=== PATIENT | male | born 1945 | race Caucasian/White ===

== ENCOUNTER → 2019-04-09 14:08 | Outpatient (BNVA) | payer MEDICARE, BC, SELFPAY | PROVIDERS: PCP Physician Assistant Medical; Referring Provider Physician Assistant Medical; Visit Provider Student in an Organized Health Care Education/Training Program | DX: M25.562 Pain in left knee (principal); M17.12 Unilateral primary osteoarthritis, left knee | CPT/HCPCS: 20610; 99203; J1040 ==

== ENCOUNTER → 2019-05-11 10:41 | Outpatient (BNVA) | payer MEDICARE, BC, SELFPAY | PROVIDERS: PCP Physician Assistant Medical; Referring Provider Physician Assistant Medical; Visit Provider Student in an Organized Health Care Education/Training Program | DX: M17.12 Unilateral primary osteoarthritis, left knee (principal) | CPT/HCPCS: 20610; 99213; J7318 ==

== ENCOUNTER 2019-08-16 11:20 | Outpatient (CLI) | payer MEDICARE, BC, SELFPAY ==
--- NOTE | 2019-08-16 11:00 | DI.RAD_ITS ---
EXAM: XR HIP RT COMPLETE AP PELVIS INDICATION: hip pain. COMPARISON: No exams were available for comparison TECHNIQUE: 2D digital imaging was performed. FINDINGS: There is moderate to severe narrowing of the right superior hip joint space. There is some acetabula r spurring and mild spurring at the superior femoral head. Subchondral cysts are seen in the superio r right acetabulum. The left hip joint space is well maintained. There is mild periarticular spurri ng on the left. IMPRESSION: Advanced degenerative changes of the right hip. Mild degenerative changes of the left hip. DATA REPOSITORY: RADIATION DOSE DELIVERED:
== END 2019-08-16 11:40 ==
PROVIDERS: PCP Physician Assistant Medical; Referring Provider Physician Assistant Medical; Visit Provider Student in an Organized Health Care Education/Training Program
DX: M25.551 Pain in right hip (principal); M16.0 Bilateral primary osteoarthritis of hip; M17.11 Unilateral primary osteoarthritis, right knee; M17.12 Unilateral primary osteoarthritis, left knee; M16.11 Unilateral primary osteoarthritis, right hip; J44.9 Chronic obstructive pulmonary disease, unspecified
CPT/HCPCS: 20610; 99214; J7318; 73502

== ENCOUNTER 2019-08-23 00:54 | Outpatient (CLI) | payer MEDICARE, BC, SELFPAY ==
--- NOTE | 2019-08-23 07:45 | DI.RAD_ITS ---
EXAM: RF JOINT INJECTION FLUORO GUID CLINICAL HISTORY: R HIP INJ UNDER FLUORO,RT HIP PAIN, M25.551 TECHNIQUE: COMPARISON: No exams were available for comparison FINDINGS: Fluoroscopy was utilized by Dr. Bey during right hip injection. Please see Dr. Bey is note . Hard copy shows intra-articular injection. Fluoro time was 6 seconds. IMPRESSION:
--- NOTE | 2019-08-23 14:02 | W.PROCNOTE ---
Date of service: 08/23/19 Time of Service: 14:02 Procedure Note Date of procedure: 08/23/19 Procedure: Right Hip Injection with Fluoroscopic Guidance Surgeon/Proceduralist/Physician: Jake Bey Procedure Diagnosis: Right Hip Osteoarthritis Procedure Indications: Riccardo has had persistent pain of the RIGHT hip and groin. Noninvasive measures have been tried. To serve as both diagnostic and therapeutic, an injection under fluoroscopy was recommended. I had discussed the risks of the procedure and the patient elected to proceed. Procedure Description: Riccardo was greeted in the flouroscopy room. The correct side was identified and the consent was reviewed with the patient and signed. The patient was then placed in the supine position on the fluoroscopy table. The RIGHT hip was then prepped with Chloraprep. The anterolateral injection starting point was identiifed by bony landmarks and fluoroscopy. The skin and soft tissue in the tract of the injection was anesthetized with 1% Lidocaine. A spinal needle was then inserted deep into the hip joint at the level of the lateral femoral neck under fluoroscopic guidance. A small amount of Omnipaque solution was injected to confirm intraarticular placement. Once confirmed, the hip was injected with 6cc of 0.5% Bupivicaine and 80mg of Depo-Medrol. A bandaid was placed on the injection site. The patient tolerated the procedure well and noted improvement in pre-injection pain.
[2019-08-23] MEDS: Omnipaque 300 MG/ML 10 ML BTL IJ (14:56)
[2019-08-23] MEDS: Bupivacaine 0.5% Pres-Free 10 ML VIAL 6 ML IJ (14:56)
[2019-08-23] MEDS: methylPREDNISolone ACETATE 80 MG/ML VIAL IM (14:56)
== END 2019-08-23 01:14 ==
PROVIDERS: PCP Physician Assistant Medical; Visit Provider Student in an Organized Health Care Education/Training Program
DX: M25.551 Pain in right hip (principal); M16.11 Unilateral primary osteoarthritis, right hip
CPT/HCPCS: 20610; 77002; J1040

== ENCOUNTER → 2019-10-15 10:54 | Outpatient (BNVA) | payer MEDICARE, BC, SELFPAY | PROVIDERS: PCP Physician Assistant Medical; Referring Provider Physician Assistant Medical; Visit Provider Student in an Organized Health Care Education/Training Program | DX: M16.11 Unilateral primary osteoarthritis, right hip (principal); Z98.890 Other specified postprocedural states; J44.9 Chronic obstructive pulmonary disease, unspecified | CPT/HCPCS: 99213 ==

== ENCOUNTER → 2019-11-01 11:02 | Outpatient (BNVA) | payer MEDICARE, BC, SELFPAY | PROVIDERS: PCP Physician Assistant Medical; Referring Provider Physician Assistant Medical; Visit Provider Student in an Organized Health Care Education/Training Program | DX: M17.12 Unilateral primary osteoarthritis, left knee (principal); M16.11 Unilateral primary osteoarthritis, right hip | CPT/HCPCS: 20610; 99213; J7318 ==

== ENCOUNTER 2020-01-23 02:12 | Outpatient (CLI) | payer MEDICARE, BC, SELFPAY ==
[2020-01-23 15:35] LABS: HCT 39.1 % (40.0-50.0); HGB 13.3 g/dL (13.5-17.5); MCH 31.8 pg (27.0-33.0); MCV 93.5 fL (80-95); MPV 11.3 fL (8.0-11.0); Platelet Count 216 10^3/uL (130-400); RBC 4.18 10^6/uL (4.36-5.78); RDW 13.3 % (11.8-14.1); RDW-SD 45.5 fL
[2020-01-23 16:34] LABS: Anion Gap 7.8 mmol/L (3-11); BUN 17 mg/dL (7-18); CO2 27.2 mmol/L (21.0-32.0); Calcium 9.1 mg/dL (8.5-10.1); Chloride 99 mmol/L (98-107); Glucose 99 mg/dL (74-106); Potassium 4.2 mmol/L (3.5-5.1); Sodium 134 mmol/L (136-145)
== END 2020-01-23 02:32 ==
PROVIDERS: PCP Physician Assistant Medical; Visit Provider Student in an Organized Health Care Education/Training Program
DX: M25.551 Pain in right hip (principal); M16.11 Unilateral primary osteoarthritis, right hip; Z01.818 Encounter for other preprocedural examination; Z01.812 Encounter for preprocedural laboratory examination
CPT/HCPCS: 80048; 85027; 86850; 86900; 86901

== ENCOUNTER 2020-01-23 15:55 | Outpatient (CLI) | payer MEDICARE, BC, SELFPAY ==
--- NOTE | 2020-01-23 14:45 | DI.RAD_ITS ---
EXAM: XR PELVIS AP CLINICAL HISTORY: pre op. TECHNIQUE: 2D digital imaging was performed. COMPARISON: CR XR HIP RT COMPLETE AP PELVIS from 08/16/2019 FINDINGS: BONES: No acute fracture is present. No bony destructive lesion is seen. JOINTS: No dislocation present. There is again seen moderate to severe narrowing of the right hip loreta nt space. Subchondral sclerosis and subchondral cysts are noted. The left hip joint is well maintai jennifer. The sacroiliac joints and symphysis pubis are unremarkable. SOFT TISSUE: Normal. IMPRESSION: Stable osteoarthritis of the right hip. DATA REPOSITORY: RADIATION DOSE DELIVERED:
== END 2020-01-23 16:15 ==
PROVIDERS: PCP Physician Assistant Medical; Visit Provider Physician Assistant
DX: M16.11 Unilateral primary osteoarthritis, right hip (principal); M25.551 Pain in right hip; Z01.818 Encounter for other preprocedural examination; Z01.812 Encounter for preprocedural laboratory examination
CPT/HCPCS: 80048; 85027; 86850; 86900; 86901; 72170

== ENCOUNTER 2020-01-25 08:20 | Outpatient (CLI) | payer MEDICARE, BC, SELFPAY ==
[2020-01-26 14:59] LABS: COVID-19 RT-PCR Result NEGATIVE (Negative)
== END 2020-01-25 08:40 ==
PROVIDERS: PCP Physician Assistant Medical; Visit Provider Student in an Organized Health Care Education/Training Program
DX: Z11.59 Encounter for screening for other viral diseases (principal); Z01.818 Encounter for other preprocedural examination; M16.11 Unilateral primary osteoarthritis, right hip
CPT/HCPCS: U0003

== ENCOUNTER 2020-01-29 06:12 | Observation (INO) | payer MEDICARE, BC, SELFPAY ==
[2020-01-29] VITALS (13 sets, daily range): BP systolic 76–135; BP diastolic 49–84; PULSE 55–69; RESP 12–19; TEMP 36.2–37.3; O2SAT 95–98
[2020-01-29] MEDS: Lactated Ringers 1,000 ML 80 ML IV ×2 (07:03→14:08)
[2020-01-29] MEDS: Acetaminophen 500 MG TAB 1000 MG PO ×3 (07:12→20:20)
[2020-01-29] MEDS: Celecoxib 200 MG CAP 400 MG PO (07:12)
[2020-01-29] MEDS: ceFAZolin 1 GM/50 ML BAG IVPB ×3 (07:46→22:01)
[2020-01-29] MEDS: Bupivacaine 0.25% Pres-Free 30 ML VIAL (08:14)
[2020-01-29] MEDS: Ketorolac 30 MG/ML VIAL (08:15)
--- NOTE | 2020-01-29 09:09 | DI.RAD_ITS ---
EXAM: XR HIP RT IN OR CLINICAL HISTORY: RIGHT HIP DJD. TECHNIQUE: 2D and realtime digital imaging was performed. COMPARISON: No exams were available for comparison FINDINGS: Fluoroscopy was provided in the OR for Dr. Bey. Hard copy images show placement of a right hip prosthesis. The components appear satisfactorily aligned. Please see procedure note for details. Fluoro time: 50.1 seconds RADIATION DOSE DELIVERED:
[2020-01-29] MEDS: Mirabegron 50 MG TABCR PO (11:31)
--- NOTE | 2020-01-29 11:35 | IN_ITS ---
Date of service: 01/29/20 Time of Service: 11:35 PT Notes Visit Reasons: R HIP TOTAL Physical Therapy Inpatient Initial Evaluation Date: 01/29/2020 Referring Doctor: Jake Bey MD PT Orders: PT CONSULT: Status post ortho surgery. Status post R KANWAL Precautions: Fall. Standard. WBAT on right LE. Patient Profile/Admitting Diagnosis: Riccardo is a 74-year-old male with primary unilateral osteoarthritis of the right hip and is status post right total hip arthroplasty on postoperative day 0. 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 Has steps at both house entrances. The front entrance has 4 step to enter without rails, the back has the same steps with rails. Inside the house, he has 18 more steps with rail on one side and a wall on the other side that he can hold onto for support. Independent with all aspects of ADLs prior to surgery. Equipment Owned/DME: Front wheeled walker Subjective: Agreeable to PT consult. Concerned about not being able to lift his right foot up. Denies dizziness, chest pain, and headache throughout session. Reports 2/10 pain in the right hip. Emphasizes that he is willing to stay overnight to make sure that the dosage for his pain pills are well figured out before he goes and he also would like to be as independent as he can as he does not want to be a burden to his significant other at home. Objective: General Observation: Supine in bed. Cold pack on right hip. Mepilex Ag over surgical incision. Bilateral TEDs on. IV in the right UE. Mental Status: Alert and oriented Pain: 2/10 in the right hip at rest and with movement ROM: Right Upper Extremity: Shoulder Flexion WFL. Shoulder abduction WFL. Elbow flexion WFL. Wrist flexion WFL. Opening and closing of hand WFL. Left Upper Extremity: Shoulder Flexion WFL. Shoulder abduction WFL. Elbow flexion WFL. Wrist flexion WFL. Opening and closing of hand WFL. Right Lower Extremity: Hip flexion WFL. Hip abduction WFL. Knee flexion WFL. Ankle dorsiflexion none. Ankle plantarflexion WFL. Left Lower Extremity: Hip flexion WFL. Hip abduction WFL. Knee flexion WFL. Ankle dorsiflexion WFL. Ankle plantarflexion WFL. Strength: Right Upper Extremity: Shoulder flexors 5/5. Shoulder abductors 5/5. Elbow flexors 5/5. Elbow extensors 5/5. Striping Machine Operator strong. Left Upper Extremity: Shoulder flexors 5/5. Shoulder abductors 5/5. Elbow flexors 5/5. Elbow extensors 5/5. Striping Machine Operator strong. Right Lower Extremity: Hip flexors 4-/5. Hip abductors 4-/5. Knee flexors 4-/5. Knee extensors 4-/5. Ankle dorsiflexors 0/5. Toe extensors 1/5. Ankle plantarflexors 3/5. Left Lower Extremity:Hip flexors 5/5. Hip abductors 5/5. Knee flexors 5/5. Knee extensors 5/5. Ankle dorsiflexors 5/5. Ankle plantarflexors 5/5. Sensation: Diminished as to pain and pressure on right leg and foot. Bed Mobility/Transfers: Supine to sit standby assist with HOB at 30 degrees Sit to stand CGA Stand to sit SBA Bed to chair SBA Chair to bed SBA Gait: 40 feet using front wheeled walker with WBAT on the right LE requiring contact-guard assist with foot drop on the right with no visible DF and absent heel strike. Decreased alex. Balance: Static Sitting: Normal Dynamic Sitting: Normal Static Standing: Fair Dynamic Standing: Fair Special Tests: Mobility Limitations Standardized Measure [facility] AM-PAC 6 clicks Basic Mobility Inpatient Short Form: Raw Score: 18 CMS Score: 47% deficit Informed Consent/Education: Patient instructed in purpose of PT consult and plan of care. Assessment: Riccardo demonstrates functional mobility decline requiring the use of front wheeled walker for all mobility ADL performance, impairment in gait pattern, difficulty with walking, and increased fall risk due to postoperative status. Riccardo is a 74-year-old male with primary unilateral osteoarthritis of the right hip and is status post right total hip arthroplasty on postoperative day 0. Patient presents with clinical signs and symptoms consistent with current/admitting diagnoses that have resulted to mobility limitations, gait instability, generalized weakness, and impairment of motor control as demonstrated by the following impairment level findings: 1. Decreased strength to right knee and ankle major muscle groups 2. Impaired standing balance 3. Impaired activity tolerance 4. Limitation of joint range of motion in right knee and ankle 5. Decreased sensation to right leg and foot Impairments are contributing to the following functional limitations: 1. Dependent bed mobility skills 2. Increased dependence with transfers 3. Inability to safely ambulate without assistive device and physical assistance 4. Increase completion time for mobility ADL performance 5. Increased fall risk 6. Inability to negotiate steps alone safely Patient is assessed as a 04660 complexity based on the following: History: 34-year-old male with impairment level findings, functional limitatio ns, and past medical history as indicated above Examination: Demonstrable impairment in strength, balance, and mobility level with underlying impairments and functional limitations as documented above Presentation: Evolving Decision Makin moderate complexity Goals: Goals X1 week 1. Supine-Sit independent 2. Sit-Supine independent 3. Sit-Stand independent 4. Stand-Sit independent 5. Bed-Chair independent 6. Chair-Bed independent 7. Independent gait on level surface with use of least restrictive device for at least 300 feet without report of pain nor dyspnea 8. Independent stair negotiation while holding onto bilateral rails for at least 10 steps without report of pain nor dyspnea 9. Independent with home exercise program 10. Good static and dynamic standing balance/tolerance Plan of Care/Treatment Plan: 1-2x/day, 7 days/week x 1 week. Plan of care has been reviewed with the LAUNDRY WASHER providing the service under Physical Therapy direction. Initiate Physical Therapy intervention for strengthening, bed mobility, transfers, gait, stairs, balance training, use of assistive device. DISCHARGE RECOMMENDATIONS: Home when medically cleared by Ortho surgeon. Out patient PT services to address underlying impairments and functional deficits to facilitate return to premorbid independent level. TREATMENT CODE/TIME: 9716 2 x 25 minutes, 9 seven 0 x 3 minutes beginning at 11:35 AM. Thank you for the opportunity to participate in the care of this patient. Carleen Mallory PT, DPT, CLT [facility] [place], [place]
[2020-01-29] MEDS: oxyCODONE 5 MG TAB PO ×2 (13:16→20:51)
--- NOTE | 2020-01-29 15:08 | ROE_ITS ---
Date of service: 01/29/20 Time of Service: 09:29 Operative Note Operative Note DATE OF PROCEDURE: 01/29/20 PRE-OP DIAGNOSIS: Right Hip Osteoarthritis POST-OP DIAGNOSIS: same PROCEDURE: Right Anterior Total Hip Arthroplasty SURGEON: Jake Bey GANG DRILL PRESS OPERATOR: Estuardo Smith ANESTHESIA: spinal ESTIMATED BLOOD LOSS: 400 PATHOLOGY: none sent COMPLICATIONS: None Patient was transported to: PACU Patient's condition: stable Implants: 1. Depuy [place] Acetabular Component, 56mm 2. Depuy Acetabular Liner, [id number] 3. Depuy Corail High Offset Collared Femoral Stem, Size 14 4. Depuy Altrx Ceramic Femoral Head, Size 36+1.5mm Indications: I have seen Riccardo in clinic for symptoms of hip arthritis, confirmed with radiographic findings. He has exhausted nonoperative methods and was having significant limitations in daily function and desired better function and less pain. I discussed the technical details of a hip replacement. I explained the risks of the procedure to include, but not limited to, bleeding, infection, pain, stiffness, fracture, damage to nerves and vessels, damage to muscles and tendons, loosening, instability, leg length inequality, need for repeat procedure, blood clot and cardiopulmonary demise. Despite these risks, Riccardo elected to proceed. Findings: There was significant signs of arthritis throughout the hip, mostly superiorly and witha large floor osteophyte. Procedure Description: Riccardo was greeted in the preoperative holding area where the correct side was identified and marked. The consent was reviewed with the patient and signed. The history and physical was updated. All questions were answered. He was taken back to the operating room. A spinal anesthestic was then administered. The patient was placed into the supine position on the operating room table. The patient was then positioned onto the ARCH table. Both feet were wrapped with Webrill cotton wrap along with Coban. The feet were placed in specialized boots for the ARCH table, well seated within the boot and secured. SCDs were applied. The patient was then slid down onto a peroneal post and the nonoperative leg was secured in a leg pitt attached to the table. The operative side was placed into the ARCH table attachment and bed height and positioning was secured. A preoperative AP pelvis was obtained to serve as a reference for determining leg lengths. Prophylactic antibiotics in the form of Cefazolin were administered. 1g of Tranxemic Acid was given intravenously within 30 minutes of incision. The right leg was then prepped with Chloraprep and draped in a standard fashion. A second prep with Chloraprep was performed prior to placement of a shower-curtain type drape with Iodine impregnated skin protection. A timeout to confirm correct identity, side and site, procedure, allergies, anesthesia, and medical concerns was performed. An obliquely oriented incision was made starting lateral to the ASIS and running distal over the Tensor Fascia Nely (TFL) muscle belly toward the fibular head, approximately 10cm. The skin and soft tissue was dissected sharply, through Eve?s fascia, and to the fascia of the TFL. With the fascia and superior border of the IT band identified, the fascia was incised with a new knife just above any perforators from the IT band. The TFL muscle belly was bluntly dissected away from the fascia and moved laterally. The fat between TFL and rectus was identified to ensure the dissection was not within the TFL. Blunt dissection created space between abductors and the capsule and retractor was placed over the lateral femoral neck. The fibers of the rectus femoris tendon were identified and these were freed from the anterior capsule. A second cobra retractor was placed around the medial femoral neck. The TFL was further retr acted laterally to show the deep fascia. Careful dissection through this layer identified three main crossing vessels of the lateral femoral circumflex. These were cauterized in multiple locations and then cut without any noticeable bleeding. The TFL was further released bluntly from the deep fascia to expose anterior hip capsule and fat The Say orthopaedic retractor was then placed beneath the TFL and against sartorius and medial soft tissues to protect and retract the soft tissues. A T-capsulotomy was then performed starting at the superior lateral acetabulum and moving distally to the intertrochanteric ridge. These capsular flaps were tagged with a No. 1 Ethibond and elevated from within. The capsular flaps were released to the shoulder of the lateral neck and to the lesser trochanter to give excellent visualization of the proximal femur. A neck osteotomy was performed using an oscillating saw based on preoperative templates. This cut started in the shoulder and of the lateral neck and exited medially. The saw was at all times directed medially to avoid injury to the greater trochanter. 6cm of traction was applied to the leg and the osteotomy opened. The femoral head was removed with a corkscrew, making sure to protect the TFL on its exit. This was measured on the back table to determing the starting reamer size. Portions of the rectus obscuring visualization were minimally elevated off the superior acetabulum. An anterior retractor was placed over the anterior wall between capsule and labrum and attached to the Gripper retraction system. A posterior retractor was placed similarly. This provided excellent visualization. The contents of the cotyloid fossa were removed with electrocautery and the labrum was removed with a knife. There was a notable floor osteophyte. There was significant chondromalacia of the superior acetabulum. Acetabular reaming began with a 52mm reamer. This first reaming was directed anterior to posterior and medial to get down to the true floor. This was inspected and reamed until the true floor was reached. The anterior retractor was then released and entry and exit was provided by traction on the capsular flaps. I then reamed sequentially up to a 56mm reamer where good fit was obtained. The larger reamers were oriented based on anatomical reference of the anterior and lateral birch to ensure proper abduction and anteversion. Positioning and size was confirmed with the fluoroscopy. A 56mm Depuy [place] acetabular component was selected. The acetabulum was reamed around the periphery with the selected acetabular size to prevent a rim fit. The deep tissues were irrigated. The acetabular component was then impacted in a position of about 40-45 degrees of abduction and 15-20 degrees of anteversion, using the patient?s anatomy as the ultimate landmark. Fluoroscopy was used to confirm this. There was excellent airborne operations superintendent of the acetabular component and the inserting handle was removed. The acetabular liner, Depuy [id number] polyethylene liner, was inserted and lined up with the tines of the acetabular component. There was no soft tissue interposition. The liner was then impacted into position and confirmed to be well-seated. A portion of the blanche-articular cocktail was then injected around the acetabulum into the capsule and periosteum. This cocktail consisted of 50cc of 0.25% Bupivicaine and 20cc of Exparel, expanded to a total of 120cc. Traction was released from the femur. The leg was rotated to 120 degrees. Any remaining medial capsule was released until the lesser trochanter was easily palpable. A Zhou retractor was placed medially. The lateral capsule was further released into the shoulder to allow access to the greater trochanter. A Zhou retractor was placed over the greater trochanter which allowed the trochanter to flip in front of the capsule for excellent exposure. The leg was brought down into maximal extension and 20 degrees of adduction while ensuring there was no impingement on the acetabulum. Any remnant capsule within the trochanter was released. Piriformis and obturator externis were identified and protected. There was excellent access to the proximal femur. The lateral neck remnant was removed with a rongeur. A blunt canal probe was used to identify the canal and trajectory for later broaching. A box osteotome initiated the broach course. A small curved rasp and a curved curette were used to work laterally. Broaching then began with a size 8 Corail broach. This was inserted manually around the trochanter and into the canal before mallet blows. The broach was seated to a few millimeters below the cut level based on the neck cut and the preoperative template. Sequential broaching was continued with the Blend pneumatic broaching device until a tight fit was obtained with good rotational control of the femur. A trial standard 125 degree neck was inserted along with a +5 trial head. The leg was brought out of extension and adduction and then reduced with traction and internal rotation. The leg was stable anteriorly in a position of 30 degrees of extension and 90 degrees of external rotation. Fluoroscopy was used to ensure there was no fracture and the stem was seated well. Leg lengths were checked with an AP pelvis and pelvic reference points. Help/Systems navigation system was used to confirm appropriate positioning and leg length and offset. There was some under offset and leg length, but corrected with a high offset stem and 1.5mm head. Once content with the desired offset and leg lengt hs, the leg was brought back into extension, external rotation and adduction. The periosteum and surrounding tissue was injected with remaining portion of the blanche-articular cocktail. The proximal femur was irrigated as well as the deep tissues. The Depuy Corail High Offset collared stem, size 14, was then manually inserted into the proximal femur making sure to control rotation. It was then malleted into position with light blows, giving breaks to allow bone expansion and decrease risk of fracture. The selected Depuy Altrx Ceramic Head, size 36+1.5mm, was then placed onto the clean and dry trunnion and secured with impaction onto the tapered fit. The leg was brought back out of extension and adduction and reduced with traction and internal rotation. Stability was confirmed with no shuck at 90 degrees of external rotation and 30 degrees of extension. No impingement through range of motion arc. Final x-ray images were obtained with fluoroscopy to confirm adequate positioning and no intraoperative fracture. The deep tissues were thoroughly irrigated with Irrisept chlorhexadine solution. The second dose of TXA 1g was administered intravenously.The capsule was then reapproximated with the previously placed Ethibond sutures. The TFL fascia was finally closed with a No. 2 Stratafix, barbed suture. Deep tissues were then reapproximated with 0 Vicryl and a running 2-0 Vicryl. The skin was closed with a running 4-0 Monocryl in a subcuticular fashion. This was reinforced with skin glue. A Mepilex silver dressing was applied. At the end of the case, all counts were correct. Riccardo was transferred to the hospital bed without difficulty and suffering no apparent complication. Riccardo has a good prognosis. Physical therapy will start today and without restrictions, weight-bearing as tolerated. Aspirin 81mg BID will be used for DVT prophylaxis.
--- NOTE | 2020-01-29 15:39 | PT.INTREAT ---
Date of service: 01/29/20 Time of Service: 14:05 PT Notes Visit Reasons: R HIP TOTAL Inpatient Physical Therapy Treatment Note [facility] Date: 01/29/2020 PRECAUTIONS: Fall, WBAT R SUBJECTIVE: Riccardo expresses concern regarding lack of active dorsiflexion at this time. Patient was observed discussing this matter with Dr. Bey. He states he feels discouraged, but is trying to remain hopeful that this is temporary. OBJECTIVE: PAIN: No complaints of pain BED MOBILITY/TRANSFERS Supine-sit: I with HOB flat Sit-supine: I with HOB flat Sit-stand: S Stand-sit: S Bed-Chair: SBA Chair-bed: SBA GAIT Assistive Device: FWW Weight bearing: WBAT R Assist: SBA Distance: 225' Deviation: Lack of dorsiflexion on R, step-through gait pattern instruction THEREX: Patient was instructed in several lower extremity strengthening and stabilization exercises, while in a supine position, as per flow sheet. Patient requires assist into dorsiflexion at this time. STAIRS: Up/down 3x4 and 2x6 using U rail/SPC and a step-to pattern with SBA; up/down 3x4 and 2x6 using SPC and a step-to patter with SBA ASSESSMENT: Patient tolerated session with complaints of increased fatigue with increased gait distance with FWW support and SBA. He demonstrates lack of dorsiflexion at the time, however, manages well with gait and stair training. Patient would benefit from continued gait training as well as global strengthening for improved mobility and activity tolerance. PLAN: Continue with gait training and global strengthening TREATMENT CODE/TIME: 40 minutes; 55252 x2, 05707
[2020-01-29] MEDS: Multivitamin w/Minerals TAB 1 TAB PO (20:19)
[2020-01-29] MEDS: Aspirin E.C. 81 MG TABEC PO (20:20)
[2020-01-29] MEDS: Celecoxib 200 MG CAP PO (20:20)
[2020-01-29] MEDS: Melatonin 3 MG TAB PO (22:01)
[2020-01-30] MEDS: Lactated Ringers 1,000 ML 80 ML IV (00:57)
[2020-01-30] MEDS: oxyCODONE 5 MG TAB PO ×3 (00:57→15:52)
[2020-01-30 03:05] VITALS: BP 100/58; PULSE 58; RESP 17; TEMP 37.7; O2SAT 95
[2020-01-30] MEDS: ceFAZolin 1 GM/50 ML BAG IVPB (06:15)
[2020-01-30 08:17] VITALS: BP 115/66; PULSE 69; RESP 18; TEMP 36.6; O2SAT 97
[2020-01-30] MEDS: Multivitamin w/Minerals TAB 1 TAB PO (08:35)
[2020-01-30] MEDS: Mirabegron 50 MG TABCR PO (08:35)
[2020-01-30] MEDS: Dexamethasone 4 MG TAB PO (08:36)
[2020-01-30] MEDS: Magnesium Oxide 400 MG TAB PO (08:36)
[2020-01-30] MEDS: Celecoxib 200 MG CAP PO (08:37)
[2020-01-30] MEDS: Aspirin E.C. 81 MG TABEC PO (08:37)
[2020-01-30] MEDS: Acetaminophen 500 MG TAB 1000 MG PO ×2 (08:37→14:30)
[2020-01-30] MEDS: Pantoprazole 40 MG TABCR PO (08:37)
--- NOTE | 2020-01-30 08:59 | PT.INTREAT ---
Date of service: 01/30/20 Time of Service: 08:59 PT Notes Visit Reasons: R HIP TOTAL Inpatient Physical Therapy Treatment Note [facility] Date: 01/30/2020 PRECAUTIONS: Fall. Standard. WBAT R LE. SUBJECTIVE: Riccardo feels more confident about moving around with his FWW. He is hopeful that his R foot can improve down the road. Complained of 4/10 pain in R hip with mobility performance. Denies dizziness, lightheadedness, and chest pain through out session. Is happy about how well he did on the real steps this morning. OBJECTIVE: PAIN: 4/10 pain in R hip BED MOBILITY/TRANSFERS Supine-sit: independent with HOB flat Sit-supine: independent with HOB flat Sit-stand: independent Stand-sit: independent Bed-Chair: supervision Chair-bed: supervision THERA EX to R Foot: Manual resistance to plantarflexion to R LE with 5-second hold x 10 with goal of irradiation to dorsiflexors. Active inversion to about 10 degrees x 10. Active IP flexion x 10. GAIT Assistive Device: FWW Weight bearing: WBAT R Assist: SBA Distance: 300' Deviation: Step through gait pattern. Lack of complete knee extension at midstance on the R LE. Plantarflexion less pronounced during swing phase of gait with compnesatory increased R knee flexion. Much more controlled foot flat seen today. STAIRS: Up and down 12 x 4 steps using SPC on one hand and while holding onto rail with the other with step-to gait pattern and SBA of PT and CLINICAL STUDIES SPECIALIST [place]. R foot almost to neutral during each descent. ASSESSMENT: Riccardo demonstrates increased independence with mobility performance and will manage well at home with good pain control and use of front-wheeled walker. PLAN: Home when medically cleared by orthopedic surgeon. May benefit from OP services to regain highest functional level. TREATMENT CODE/TIME: 90549 x 47 minutes beginning at 8:59 AM.
--- NOTE | 2020-01-30 10:52 | PDOC.CMIN ---
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 His significant other, Jennifer will be supporting him during recovery. CURRENT FUNCTIONAL STATUS:: Riccardo is lying in bed when CM meets with him. He verbalizes understanding of his discharge plan and shares no concerns at this time. Per chart review: Riccardo expresses concern regarding lack of active dorsiflexion at this time. Patient was observed discussing this matter with Dr. Bey. He states he feels discouraged, but is trying to remain hopeful that this is temporary. ADVANCE DIRECTIVES:: None on file. Has patient been provided with info about the portal/API?: No Did the patient sign up for the portal?: No CODE STATUS:: Full Code INSURANCE COVERAGE / FINANCIAL ISSUES:: BC/BS. Medicare CURRENT HOME/COMMUNITY SERVICES/EQUIPMENT:: No current services. PRIMARY CARE PHYSICIAN:: Destiny Lucas POTENTIAL DISCHARGE NEEDS:: PT evaluation to inform discharge planning considerations. Possible FWW, follow up appointments with surgical services and PCP. PATIENT/FAMILY EDUCATION NEEDS:: Review discharge instructions, discuss Ask Me Three. ANTICIPATED BARRIERS TO DISCHARGE:: None identified at this time. TRANSPORTATION:: Via private vehicle with his daughter. PLAN:: Riccardo will return home when ready per MD. He will have new orders for [facility] through [facility]: CM faxed referral and orders. Riccardo will follow up with surgical services, his PCP and plan of care as prescribed. He will transport via private vehicle with his daughter.
--- NOTE | 2020-01-30 11:04 | DSE_ITS ---
Date of service: 01/30/20 Time of Service: 11:04 DS: Diagnosis Discharge Diagnosis (1) Primary osteoarthritis of right hip: Status: Chronic (2) Right peroneal nerve palsy: Status: Acute Discharge Plan Disposition Patient Disposition: HOME Condition: Stable Discharge Details Reason For Visit: R HIP TOTAL Admit Date/Time: 01/29/20 06:12 Admit Provider: Jake Bey Attending Provider: Jake Bye Primary Care Provider: Destiny Lucas Hospital Course Hospital Course: Riccardo was admitted to the medical/surgical floor following the procedure. The surgery was tolerated well without any notable medical,or anesthetic complications. Unfortunately, after the spinal anesthetic wore off Riccardo had no active dorsiflexion of his right foot. This was followed and tested and demonstrated what appeared to be a peroneal nerve distribution palsy. I spent some time to Bereketr ongoing potential ideology. I also reviewed the literature with him which is quite sparse with this type of injury in an anterior approach. I also discussed the anatomy and the unlikelihood that this injury happened. Nevertheless, it did. As planned, mobilization began postoperatively. He was voiding spontaneously. Vitals were stable. Physical therapy worked with the patient and was cleared for discharge home. Pain was controlled on oral regimen. I discussed the treatment algorithm to follow these nerve symptoms over the next few weeks and plan for nerve action studies and EMG if he has no resolution at the 6-week point. All his questions were answered. I discussed this in detail with him and his partner, Jennifer. We will avoid any bracing at this time and continue to work on active and active assisted range of motion. I will also order home health physical therapy. Home Meds and New Rx's Prescriptions: New aspirin 81 mg tablet,delayed release (DR/EC) 81 mg PO BID Qty: 60 RF: 0 acetaminophen [Tylenol Extra Strength] 500 mg tablet 500 mg PO Q6H PRNQty: 90 RF: 0 pantoprazole [Protonix] 40 mg tablet,delayed release (DR/EC) 40 mg PO DAILY Qty: 30 RF: 0 oxycodone 5 mg tablet 5 mg PO Q4H PRNQty: 18 RF: 0 celecoxib [Celebrex] 200 mg capsule 200 mg PO BID Qty: 60 RF: 0 cyclobenzaprine 5 mg tablet 5 mg PO QHS PRNQty: 7 RF: 0 Continued Myrbetriq 50 mg tablet extended release 24 hr 50 mg PO DAILY RF: 0 Anoro Ellipta 62.5-25 mcg/actuation blister with device 1 inh IH DAILY RF: 0 lorazepam 0.5 mg tablet 0.5 mg PO QHS PRNRF: 0 Trelegy Ellipta 100-62.5-25 mcg blister with device 1 inh IH DAILY RF: 0 Ventavis 10 mcg/mL solution for nebulization 5 mcg IH PRN PRNRF: 0 (DME) Raised Toilet Seat See Rx Instructions .ROUTE .MEDSUPPLY Qty: 1 RF: 0 Discharge Instructions Additional Instructions: Total Hip Discharge Instructions Activity: The most important activity is to walk. You should try to take short walks a few times a day. You have no restrictions on movement or positioning, but do not try to force what you do. You will find some stiffness and weakness with hip flexion (lifting your knee). Do not try to strengthen this too early, continue to practice walking and stairs and this will come. - Outpatient physical therapy can be helpful to help return you to a normal gait and improve your flexibility and strength. This can start around 2 weeks. For some patients, it?s not necessary. Usually this is determined at the time of discharge or at the first post-operative visit. - You should wear the MARJORIE hose on both legs for 2 weeks. Dressing: Keep the surgical dressing in place for at least one week. After the first week it may be removed and replace with light gauze and tape or nothing. It may get wet after 3 days but avoid soaking the dressing. If it gets wet, just lightly pat dry. It is important to always keep some gauze between skin folds, especially when you are sitting. Spend some time with the wound exposed when you are lying flat as the incision does wrinkle onto itself. Medications: - You should take Tylenol and an anti-inflammatory Celebrex as your primary pain control medications - You have been prescribed a stronger pain medication Oxycodone for breakthrough pain, take as needed as prescribed. - You have also been prescribed a stomach acid reduction agent Pantoprozole to help reduce stomach acid and reflux. - You will be taking Aspirin 81mg twice a day for DVT prevention unless instructed otherwise. - You also have been prescribed Cyclobenzaprine 5mg at night to help with muscle spasms/cramps. - If you have constipation you should take Colace or Miralax (both [id number]). It takes most people 3-4 days to have a bowel movement. Follow-up: 2 weeks 1. Encounter Date and Reason I certify that RICCARDO TREVINO was seen by Jake Bey MD on 01/30/20 and that I had a [id number] encounter with this patient that meets the physician face to face encounter requirements. 2. Clinical Findings Supporting Skilled Need and Homebound Status I certify that home health services are medically necessary, include either intermittent custodial and/or physical/speech therapy, and that this patient is homebound in that absences from the home require considerable and taxing effort and are infrequent or of short duration, or are attributable to the need to receive medical care. [X] (a) Attached documentation from encounter provides clinical findings suppor ting skilled need and homebound status (including what assistance patient requires to leave the home). The encounter with the patient was in whole, or in part, for the following medical condition, which is the primary reason for home health care: R HIP TOTAL with PERONEAL NERVE PALSY Half-Way: Physical Therapy: Riccardo would benefit from home health services for PT due to weakness and ambulatory dysfunction following a right hip replacement complicated by a peroneal nerve palsy. He had an anterior KANWAL and there are no restrictions with hip positioning or movement. WBAT with assistive devices. Gentle PROM and AAROM of the lower extremity. Speech Therapy: Homebound: Riccardo is unable to leave his home unassisted. He has an ambulatory dysfunction due to recent surgery and nerve injury. 3. Certification and Authentication I certify that I composed the above information based on my clinical judgement relating to this patient's medical condition and, if applicable, clinical findings communicated to me by the NPP or inpatient physician who performed the Home Health Referral. All further orders will be obtained through Dr. Jake Bey Stand Alone Forms: Nursing Discharge Form Referrals: Jake Bey MD [ [facility] STAFF PHYSICIAN] - 02/15/20 9:00 am Activity:: Activity as Tolerated Equipment/Supplies:: Walker Diet:: As Tolerated Discharge Orders Discharge Orders: Discharge Order (Routine); Ordered 01/30/20 Ordered By: Jake Bey DS: Summary Status at Discharge Functional status at discharge: uses cane/walker Overall status at discharge: patient is not back to baseline Mental Status: mental status grossly normal Speech and Movement: speech and movement normal Mood: congruent mood Affect: normal affect Exam Psych Mental Status: mental status grossly normal Speech and Movement: speech and movement normal Mood: congruent mood Affect: normal affect DS: Data Vitals/I&O Vitals and I&O: Vital Signs Temperature 36.6 C 01/30/20 08:17 Temperature Source Tympanic 01/30/20 08:17 Pulse 69 01/30/20 08:17 Pulse Rhythm Regular 01/30/20 08:30 Respiratory Rate 18 01/30/20 08:17 Respiratory Effort Non-Labored 01/30/20 08:30 Respiratory Depth Normal 01/30/20 08:30 Respiratory Pattern Normal 01/30/20 08:30 Blood Pressure 115/66 01/30/20 08:17 Pulse Oximetry 97 01/30/20 08:17 Respiratory End-tidal CO2 31 01/29/20 10:17 Oxygen Delivery Method Room Air 01/30/20 08:17 Oxygen Flow Rate 0 01/30/20 08:17 Pain Level 6 01/30/20 08:41 Intake & Output 01/29/20 01/29/20 01/30/20 11:59 23:59 11:59 Intake Total 1070.000 / 2434.000 1364 / 2434.000 1881.333 / 1881.333 Output Total 350 / 350 400 / 400 Balance 720.000 / 2084.000 1364 / 2084.000 1481.333 / 1481.333 Weight 84.7 kg Intake: IV 720.000 / 1124.000 404 / 5353.058 1668.333 / 1401.333 Oral 350 / 1310 960 / 1310 480 / 480 Output: Urine 400 / 400 Estimated Blood Loss 350 / 350 Other: Urine Color Yellow Yellow Urine Appearance Clear Clear Cloudy Urine Odor Normal None Comment Pt voided in the toliet. Emesis Description None Voiding Methods Toilet Toilet Data Completed and Pending Labs on day of discharge: Labs from last 24 hours 01/29/20 22:10 Magnesium 2.0 PFSH Medical History Arthritis of back Asthma Cerebral infarction due to embolism (~01/2014) Did not require intervention COPD (chronic obstructive pulmonary disease) Degenerative lumbar spinal stenosis History of cardioversion Hx Afib s/p heart valve surgery which required cardioversion. Osteoarthritis of right knee Durolane injection: 08/16/2019 Surgical History History of colonoscopy Status post heart valve replacement (01/10/14) History of aortic stenosis Ascending aorta aneurysm Social History Smoking/Tobacco Use Status: Former Tobacco Use Quit Date: 04/11/07 Pack-years: 44 Alcohol Intake: current Alcohol Intake frequency: a few times a month Alcohol type: wine Drug use: Socially Current gender identity: male
[2020-01-30 11:09] VITALS: BP 111/65; PULSE 53; RESP 17; TEMP 36.3; O2SAT 96
--- NOTE | 2020-01-30 13:35 | PT.INTREAT ---
Date of service: 01/30/20 Time of Service: 13:00 PT Notes Visit Reasons: R HIP TOTAL 01/30/2020 Patient education provided for patient and patient's spouse. KANWAL packet issued and reviewed. HEP reviewed and safety precautions discussed. Patient and spouse demonstrate good understanding of information presented to them. Total Treatment Time: 20 minutes; 13945
--- NOTE | 2020-01-30 14:48 | DI.RAD_ITS ---
EXAM: XR HIP RT AP LAT ONLY INDICATION: Eval R KANWAL, peroneal palsy. COMPARISON: CR XR HIP RT COMPLETE AP PELVIS from 08/16/2019 XR HIP RT IN OR from 01/29/2020 TECHNIQUE: 2D digital imaging was performed. FINDINGS: A right hip prosthesis is noted, unchanged in alignment from intraoperative images. Components appea r well aligned. There is a mild amount of residual postsurgical air in the soft tissues. DATA REPOSITORY: RADIATION DOSE DELIVERED:
== END 2020-01-30 16:38 | disposition home or self-care (01) ==
LOC: PDS 07:43 → MS 09:46 → PDS 11:49 → MS 11:49
PROVIDERS: Admitting Provider Student in an Organized Health Care Education/Training Program; PCP Physician Assistant Medical; Visit Provider Student in an Organized Health Care Education/Training Program
PROC: (CPT 27130; principal; 2020-01-29 07:30)
DX: M16.11 Unilateral primary osteoarthritis, right hip (principal); I48.91 Unspecified atrial fibrillation; J44.9 Chronic obstructive pulmonary disease, unspecified; M48.061 Spinal stenosis, lumbar region without neurogenic claudication; G97.82 Other postprocedural complications and disorders of nervous system; Y83.4 Other reconstructive surgery as the cause of abnormal reaction of the patient, or of later complication, without mention of misadventure at the time of the procedure; Y92.234 Operating room of hospital as the place of occurrence of the external cause
CPT/HCPCS: 27130; 97110; 97162; 97530; NC; 73501; 73502; 83735; G0378; J0690; J1100; J1885; J2405; J8540

== ENCOUNTER 2020-02-15 09:41 | Outpatient (CLI) | payer MEDICARE, BC, SELFPAY ==
--- NOTE | 2020-02-15 09:00 | DI.RAD_ITS ---
EXAM: XR HIP RT COMPLETE AP PELVIS CLINICAL HISTORY: 1st post op R KANWAL. TECHNIQUE: 2D digital imaging was performed. COMPARISON: CR XR HIP RT COMPLETE AP PELVIS from 08/16/2019 CR XR HIP RT AP LAT ONLY from 01/30/2020 FINDINGS: BONES: There are stable post operative changes present. No fracture or dislocation. JOINTS: The joint spaces are well maintained. No joint effusion is present. SOFT TISSUE: Normal. IMPRESSION: Stable postoperative changes. DATA REPOSITORY: RADIATION DOSE DELIVERED:
== END 2020-02-15 10:01 ==
PROVIDERS: PCP Physician Assistant Medical; Referring Provider Physician Assistant Medical; Visit Provider Student in an Organized Health Care Education/Training Program
DX: Z96.641 Presence of right artificial hip joint (principal); Z47.1 Aftercare following joint replacement surgery; G57.31 Lesion of lateral popliteal nerve, right lower limb; J44.9 Chronic obstructive pulmonary disease, unspecified
CPT/HCPCS: 73502

== ENCOUNTER 2020-02-21 14:30 | Outpatient (CLI) | payer MEDICARE, BC, SELFPAY | END 2020-02-21 14:50 | PROVIDERS: PCP Physician Assistant Medical; Visit Provider Student in an Organized Health Care Education/Training Program | DX: M17.11 Unilateral primary osteoarthritis, right knee (principal) | CPT/HCPCS: 20610; J7318 ==

== ENCOUNTER → 2020-03-18 08:21 | Outpatient (BNVA) | payer MEDICARE, BC, SELFPAY | PROVIDERS: PCP Physician Assistant Medical; Referring Provider Student in an Organized Health Care Education/Training Program; Visit Provider Psychiatry & Neurology Neurology | DX: G57.31 Lesion of lateral popliteal nerve, right lower limb (principal); M21.371 Foot drop, right foot; G62.9 Polyneuropathy, unspecified | CPT/HCPCS: 95885; 95909; 99204; 99215 ==

== ENCOUNTER 2020-03-24 02:15 | Outpatient (CLI) | payer MEDICARE, BC, SELFPAY ==
[2020-03-24 10:16] LABS: Hemoglobin A1C 5.1 % (<5.7)
[2020-03-24 11:39] LABS: TSH (W/Ref FT4) 1.66 uIU/mL (0.36-3.74)
[2020-03-24 11:40] LABS: Vitamin B12 > 2000 pg/mL (193-986)
[2020-03-25 14:33] LABS: Total Protein 6.5 g/dL (6.3-8.2)
== END 2020-03-24 02:35 ==
PROVIDERS: PCP Physician Assistant Medical; Visit Provider Psychiatry & Neurology Neurology
DX: G62.9 Polyneuropathy, unspecified (principal); R53.83 Other fatigue; R73.9 Hyperglycemia, unspecified
CPT/HCPCS: 36415; 99213; 82607; 83036; 84165; 84443

== ENCOUNTER 2020-04-01 00:26 | Outpatient (CLI) | payer MEDICARE, BC, SELFPAY ==
--- OUTSIDE RECORDS SUMMARY | 2020-04-01 00:28 | XMS_ITS | Encounter Summary ---
:1945 Author Care Team Providers Name Role Phone Destinybelkis Lucas Primary Care Provider [phone] Aj Orlando MD Red Hat Engineer [phone] Yareli Klein MD Rat Trapper [phone] Anand Hauser MD Urologist [phone] Reason for Visit getting up all night is on myrbetriq wor ks sometimes Assessment and Plan Assessment Note As needed. 1. Nocturia Voiding diary demonstrates bot h sensory urgency (OAB) and nocturnal polyuria. No dependent edema, no known c ardiogenic issues, body habitus is atypical for occult JAH but he required a sleep s tudy. Ift was negative. He was made aware that we could consider DDAVP cautiously. He says he already tends toward hyponatremia and does not want to take a chance. I ag ree. He should hold the tea before bed and reassess as well. He asked about melaton in and was made aware that anything that addresses potentially disordered sleep w ill allow him to sleep through urges and could help, but it will not reduce the a bnormal nocturnal urine volume. We discussed there being a pop off volume after whi ch he will have to arise or will leak. The beta 3 adrenergic agonist might delay th e pop off but addressing the volume issue is also important. If he made only 250 cc o f urine at night he would be up once rather than the 3-5 times he arises now. Indisc retion of fluids continues to contribute. ? urinalysis, dipstick, refl ex micro 2. Overactive bladder Much improved on Myrbetriq, wi th potential for continued improvement over time. Cost issues were discussed. He was made aware of the less favorable side effect profile of the AM/AC meds and he is not enthusiastic about trying one. He wished to try holding the evening tea and trying Q OD dosing of the med. Samples provided. He will call. 3. Hyponatremia Precludes safe trial of DDAVP for idiopathic nocturnal polyuria. Discussion Note: None recorded.Patient educational handouts: No information available. Plan of Care Reminders Provider Appointments Follow up on or around Yola pascual 03/10/2021 MD Ernie ? Follow up on or around Wenceslao Vargas 03/19/2021 MD Darion [facility] 01/21/2020 P_urology Urinalysis, Dipstick, Reflex Micro Referral None ? ? recorded. Procedures None ? ? recorded. Surgeries None ? ? recorded. Imaging None ? ? recorded. Medications Name Start Date ? ? Anoro Ellipta 62.5 mcg-25 mcg/actuation powder for inh alation ? INHALE ONE PUFF BY MOUTH EVERY DAY Dulera 200 mcg-5 mcg/actuation HFA aerosol inhaler ? 2 puffs every other day; used in place of Symbicort when he doesn't have the Symbicort gabapentin 100 mg capsule ? Take 1 capsule every day by oral route. ipratropium 0.5 mg-albuterol 3 mg (2.5 mg base)/3 mL n ebulization soln ? Inhale 3 mL 4 times a day by nebulization route as ne eded for 30 days. Longs Adult Low Strength ASA 81 mg tablet,delayed rele ase ? Take 1 tablet every day by oral route. lorazepam 0.5 mg tablet ? 1 tablet up to every 3-4 hours prn panic x 7 days. M ax = 7/day. Myrbetriq 50 mg tablet,extended release ? 1 tab once a day on , W, , Sa only Symbicort 160 mcg-4.5 mcg/actuation HFA aerosol inhale r ? INHALE TWO PUFFS BY MOUTH EVERY DAY OR TWO TIMES A DA Y Trelegy Ellipta 100 mcg-62.5 mcg-25 mcg powder for inh alation ? Inhale 1 puff every day by inhalation route. Ventolin HFA 90 mcg/actuation aerosol inhaler ? Inhale 2 puffs every 4 hours by inhalation route as n eeded for 30 days. Notes: alternates inhalers eithe r takes trelegy, or anoro & symbicort, or, Anoro and dulera Medications Administered None recorded. Vitals Height Weight BMI Blood Pressure 5 ft 8 in 187.9 lbs 28.6 kg/m2 120/78 mm[Hg] Results Lab Results Date Name Specimen Result Interpretation Description Value Range Status Address ? 01/21/2020 Urinalysis, Urine ? Color Sondra ? ? P _urology: Dipstick, clean [address] [facility] ? ? Urine ? Appearance Clear ? ? P_uro logy: clean [address] [facility] ? ? Urine ? Glucose Normal ? ? P_urolog y: clean [address] [facility] ? ? Urine ? Bilirubin Negative ? ? P_ur ology: clean [address] [facility] ? ? Urine ? Ketones Trace ? ? P_urolog y: clean [address] [facility] ? ? Urine ? Specific 1.025 ? ? P_urolo gy: clean [place] [address] [facility] ? ? Urine ? Blood Negative ? ? P_urolog y: clean [address] [facility] ? ? Urine ? Ph 6.5 ? ? P_urology: clean [address] [facility] ? ? Urine ? Protein 1+ ? ? P_urolog y: clean [address] [facility] ? ? Urine ? Urobilinogen 0.2 ? ? P_u rology: clean [address] [facility] ? ? Urine ? Nitrite negative ? ? P_urol ogy: clean [address] [facility] ? ? Urine ? Leukocyte Negative ? ? P_ur ology: clean [place] [address] [facility] Allergies Code Code System Name Reaction Severity Onset NKDA ? ? ? Notes: No seafood allergy. No kn own contrast allergy. Problems Name Status Onset Date Source ? Ex-smoker Active 03/08/2018 ? Transient Visual Loss Active 02/20/2019 ? Unstable Knee Active 02/20/2019 ? Obstructive Sleep Apnea Syndrome Active 08/17/2019 ? Acute Low Back Pain Active 08/27/2019 ? Insomnia Active ? History Aortic Stenosis, Non-rheumatic Active ? H istory Cerebral Infarction Due to Embolism of Active ? History Cerebral Arteries Chronic Obstructive Lung Disease Active ? History Large Prostate Active ? History Procedures Date Name Performed by ? 01/29/2020 Hip Arthroscopy Dx Information not avai lable 08/23/2019 Injection Information not avai lable Notes: (R) Hip Injection 01/10/2014 Heart Valve Replacement Information not available ? Colonoscopy Information not avai lable Vaccine List Vaccine Type influenza, high dose seasonal 12/29/2016?0.5 mL 01/03/2018?0.5 mL influenza, seasonal, injectable, preserv ative free 05/19/2010?0.5 mL 12/31/2010?0.5 mL 01/08/2014?0.5 mL influenza, trivalent, adjuvanted 01/05/2019 01/14/2020 pneumococcal conjugate PCV 13 06/12/2015?0.5 mL pneumococcal polysaccharide PPV23 06/30/2010?0.5 mL Tdap 05/02/2014?0.5 mL Social History Tobacco Smoking Status Former Smoker Notes: Quit in 2006. Started at age 14. Average o f a pack a day Number of children 3 Are you currently employed? N Marital status Blind or serious difficulty seeing N Not es: glasses Have you had close contact with N someone who travelled internationally and was ill? Most Recent Tobacco Use Screening 03/19/2020 Advance directive N Exercise level Moderate Notes: ADL's, rosana sehold chores, stairs Former Occupation teacher Alcohol intake Occasional Notes: rarely Live alone or with others? with others Screened for Covid-19 Y Notes: no s/s Language Difficulties No Notes: Dutch Caffeine intake Occasional Notes: 3 cups shanti ly Drug Use N N Have you traveled internationally? N Occupation retired Family History Relation Problem Onset Age of Age Notes Father Heart disease (No Information) N/A (No Notes) Father Malignant tumor of (No Information) N/A (No N otes) stomach Functional Status No Impairment. Past Encounters 01/21/2020 Nocturia; Overactive Bladder; Hyponatrem ia Anand Hauser MD: [address] [place] [id number], Ph. History of Present Illness Note: <p>He says he has a better bladder. He is on Myrbetriq via samples last provided on 01/11/20. He was having urgency when standing in a line, with urge incontinence. He no longer has the urgency, I can hold it a lot better and the urge passes. It is very rare now.</p><p><b r></p><p>However he says it will cost him $160 for a script. He was made aware that with no coverage it is about $360 a month. He was arising 5- 6 times at night to void, now 3-4 times. He drinks a cup of tea at 10 pm, sips of water at bed time and then he hydrates at night due to lots of leg cramps.</p><p>
</p><p>He says he cannot afford to remain on the Myrbetriq without samples. He disqualifies for the income- based assistance. He later mentions travel through [place] and such, arrives in a [facility] SUV, and so it may be he prefers not to spend on the ed.
</p><p>
</p><p>His sleep study was normal. He does nothave dependent edema. His cardiology evaluation suggests against cardiogenic issues. Therefore he appears to have idiopathic nocturnal polyuria, for which we discussed DDAVP. When I mentioned the side effects and risks, which include symptomatic hyponatremia, he says low sodium is already a problem, my PCP mentioned it. Chart review shows a serum sodium of 135 in 02/27, 131 in 05/31 and 134 in 09/28. He prefers not to try DDAVP.</p><p>
</p><p><span>He is having a hip replacement at </span>[facility]<span> in February.</span>
</p>&lt ;p>
</p><p>He is concerned about the current political climate and COVID 19.The latter may impact his travel.</p><p>
</p><p>Med list and problem list are updated.</p>Review of Systems: ROS as noted in the HPI Review of Systems None recorded. Physical Exam ? Notes: <p>Pleasant, well-appearing talkative male in no distress. Formal exam not repeated.</p>
--- OUTSIDE RECORDS SUMMARY | 2020-04-01 00:28 | XMS_ITS | Encounter Summary ---
:1945 Author Care Team Providers Name Role Phone Destiny Lucas Primary Care Provider [phone] Aj Orlando MD Hand Assembler [phone] Yareli Klein MD Blending Technician [phone] Anand Hauser MD Urologist [phone] Reason for Visit - Aortic Stenosis Assessment and Plan Assessment Note Date: March 19, 2020 Referring: Destiny Lucas Re: Riccardo Corea 74-year-old man Problems: 1. Aortic stenosis. 2014. Aortic valve replacement, root rep air. 2. Atrial fibrillation. Atrial fibrillation described following AVR 2013. Underwent DCCV. Several recurrent episodes of atrial fibrillation in the months after surgery. Ablation 2014. 2. COPD. 4. Cerebral infarction, embolic disease. Event occurred postoperatively following AVR. Posterior infarction described. Transien t visual loss described. 5. Sleep apnea. October 2019 study: No evidence of sleep di sordered breathing however probably underestimation of severity due to absent supine sleep and minimal REM sleep. CPAP could be initiated. HPI: 03/19/2020. Patient underwent hip landeros rgery in January. 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 Has mobility issues, pain issues. Traditionally has been a very active anahy . Loves to hike and bike snowshoe play basketball etc. Has had no problems with these activities. He is now participating in physical therapy. He thinks he is reg aining some motion in his right lower ex tremity. Is followed by neurology. No chest pain. Denies shortness of breat h. Denies PND orthopnea edema. Sleeps on one pillow. No palpitations presyncope or syncope. No bleeding problems. DATA: Cardiac risk factors: Positive remote tobacco. 31-aeap-jdpd history. Positive hypertension. Positive cholesterol. Negative diabetes. Negative family history. Social history: Activity profile as ab ove. Past medical history: Low back pain. I nsomnia. Prostatism. Transient visual loss. Unstable left knee. Reactive airway disease. Fatigue. Review of systems: A 10-point review o f systems was obtained. Pertinent positives as described in HPI, all others negative. Allergies: Contrast allergies: Echo: July 19, 2017. LVEF 60-65%. Nor mal size. Mild concentric LVH. Paradoxical septum. Resting bradycardia. Right ventricle mildly dilated, normal function. Left atrium mildly dilated. Right atriu m mildly dilated. Aortic valve: Bioprost hesis. Normal function. Peak velocity 2.8 m/s. Mean gradient 14 mmHg. DOI 0.41. No AI. Trivial TR. Trivial PI. Normal pericardium. Aortic root normal 2.7. Ascendi ng normal 2.9. Arch normal 2.8. No coarc t. No PDA. IVC normal. E primed 8, 10 (7, 10). E/E primed 8.6, 6.9 (15, 12). Pulmonary pressure 20 to 25 mmHg plus right atrial pressure (20-30 mmHg total). November 23, 2016. Mean gradient 12 mmHg. DOI 0.32. Cardiac MRI: Stress: LHC: Holter: Event monitor: EKG: March 19, 2020. Sinus rhythm 60 bpm. Normal axis. No acute change. QT/QTc 414 ms Radiology: March 10, 2020. Screenin g CT. New subpleural density left upper lobe, represents scarring. 2 stable left lower lobe perifissural nodules. Minimal emphysematous change. Replacement ascending aorta. March 07, 2019. CT chest with and wit hout contrast. Negative pulmonary embolism. Evaluation for small emboli in the lower lobes limited by breathing motion. Mild emphysema. Pulmonary function test: April 09, 2019. FVC 77% predicted. FEV1 55% predicted. Moderate obstruction. May 21, 2014. FVC 77% predicted, FE V1 46% predicted. FEV1/FVC 60% predicted. DLCO 76% uncorrected. Labs: Medications: Aspirin 325 mg daily Gabapentin, Ventolin, Trelegy, Symbicort , Myrbetriq, lorazepam, Atrovent, Dulera, Anoro Ellipta Exam: Blood pressure: 145/76 Heart rate: 60 Oxygen saturation: 98% Weight: 192.1 pounds General: Patient alert oriented appropri ate conversant. HEENT: JVP 7 cm sitting. Heart: Regular rate and rhythm, S1-S2, n o murmur gallop or rub. Lungs: Clear to auscultation bilaterally . Abdomen: Soft. Nontender. Nondistended. No HSM. No sacral edema. Extremities: No lower extremity edema bi laterally. 1+ dorsalis pedis and pedal pulses bilaterally. 1+ radial pulses bilaterally. Assessment: 1. Bioprosthetic aortic valve with root replacement 2013. I believe he had a bicuspid valve. Normal function on echo 2017. We will repeat echo 2023 if patient rem ains asymptomatic. 2. Atrial fibrillation. Sounds like postoperative atrial fibril lation. On amiodarone for a time. No recurrences. Thank you for allowing me to participat e in this patient's care. Sincerely, Aj Orlando MD, [facility] Disposition: We will see him back 12-mo nth Time: 40-minute [id number]-ew-sssa time with patient, 15-minute chart review development completion Discussion Note: None recorded.Patient educational handouts: No information available. Plan of Care Reminders Provider Appointments Follow up on or around Yola annika 03/10/2021 MD Ernie ? Follow up on or around Wenceslaosunny Vargas 03/19/2021 MD Darion Lab None ? ? recorded. Referral None ? ? recorded. Procedures None [...] ? 1 tab once a day on M, W, Th, Sa only Symbicort 160 mcg-4.5 mcg/actuation HFA [...] BMI Blood Pressure 5 ft 8 in 87.15 kg 29.2 kg/m2 145/76 mm[Hg] Results Lab Results None recorded. Allergies Code Code System Name Reaction Severity [...] available ? Colonoscopy Information not avai lable 03/19/2020 LDCT, Chest, for Lung Cancer [facility] Radiology (Internal) Screening [address] [place] [address] (Work Place) Vaccine List Vaccine Type influenza, high dose [...] Notes: no s/s Language Difficulties No Notes: Kazakh Caffeine intake Occasional Notes: 3 cups shanti ly Drug Use N N Have you traveled internationally? N Occupation retired Family History Relation Problem Onset Age of Age Notes Father Heart disease (No Information) N/A (No Notes) Father Malignant tumor of (No Information) N/A (No N otes) stomach Functional Status No Impairment. Past Encounters 03/19/2020 Aj Orlando MD: [address] [place] [address], Ph. 03/19/2020 Chronic Obstructive Lung Disease; Insomn ia; Obstructive Sleep Apnea Syndrome; Ex-smoker Yareli Klein MD: [address] [place] [address], Ph. History of Present Illness None recorded. Review of Systems None recorded. Physical Exam None recorded.
--- OUTSIDE RECORDS SUMMARY | 2020-04-01 00:28 | XMS_ITS | Encounter Summary ---
:1945 Author Care Team Providers Name Role Phone Destiny Lance Primary Care Provider [phone] Aj Orlando MD Security Sme [phone] Yareli Klein MD Heater Planer Operator [phone] Anand Hauser MD Urologist [phone] Reason for Visit Chronic obstructive lung disease; Insomn ia Assessment and Plan 1. Chronic obstructive lung dise ase His alpha-1 antitrypsin geneti c testing, reassuringly, is normal, MM phenotype His exercise capacity had improved from the breathing standpoint, and now is limited by recent hip surgery and subsequent peroneal nerve damage. Because of carrasco concerns, will continue with Dulera twice a day with Anoro sample once a day, alternating with Trelegy sample once a day. Samples were given today again. He already got his flu shot His next low-dose CT screening for lung cancer was ordered for February,. Shared decision-making was done. He will follow-up with me after that study is done 2. Insomnia 3. Obstructive sleep apnea syndr ome No evidence of significant sle ep disordered breathing or nocturnal hypoxemia on sleep study 10/16/2019. No further needs to be done Overnight polysomnogram 10/16/2019 shows AHI 0/h, RDI 7/h, no central apneas, REM related AHI 0/h, REM related RDI 33.1/h, there was only 29 minutes of REM sleep, arousal index 31/h, PLM index 6/h, P LM arousal index 2.8/h, BMI 28.8, no noc turnal hypoxemia 4. Ex-smoker ? LDCT, chest, for lung canc er screening - due 02/2021 Discussion Note More than 25 minutes were spent wit h the patient , more than 50% of the time counselingj Patient educational handouts: No information available. Plan of Care Reminders Provider Appointments Follow up on or around Yola ankur 03/10/2021 MD Ernie ? Follow up on or around Wenceslao Vargas 29 03/19/2021 MD Darion Lab None ? ? recorded. Referral None ? ? recorded. Procedures None ? ? recorded. Surgeries None ? ? recorded. Imaging LDCT, 03/19/2020 [facility] Chest, [facility] Radiolo gy Cancer Screening (Internal) Medications Name Start Date ? ? Anoro [...] 1 tab once a day on , , , only Symbicort 160 mcg-4.5 mcg/actuation HFA aerosol [...] BMI Blood Pressure 5 ft 8 in 87 kg 29.2 kg/m2 128/74 mm[Hg] Results Lab Results None recorded. Allergies [...] lable 03/19/2020 LDCT, Chest, for Lung Cancer [facility] Radiology (Internal) Screening [address] [place] [address] (Work Place) Vaccine List Vaccine Type [...] Notes: no s/s Language Difficulties No Notes: Comoran Caffeine intake Occasional Notes: 3 cups shanti ly Drug Use N N Have you traveled internationally? N Occupation retired Family History Relation Problem Onset Age of Age Notes Father Heart disease (No Information) N/A (No Notes) Father Malignant tumor of (No Information) N/A (No N otes) stomach Functional Status No Impairment. Past Encounters 03/19/2020 Aj Orlando MD: [address], [place] [address], Ph. 03/19/2020 Chronic Obstructive Lung Disease; Insomn ia; Obstructive Sleep Apnea Syndrome; Ex-smoker Yareli Klein MD: [address], [place] [address], Ph. History of Present Illness Note: <p>74-year-old man who comes in for follow-up on COPD and on recent low-dose CT screeningfor lung cancer.</p><p>He had a recent overnight polysomnogram done because of unexplained nocturia, he did not have any significant sleep disordered breathing or nocturnal hypoxemia.<br& gt;</p><p>His breathing is stable.
</p><p> in 2016 he had an ascending aortic aneurysm repair and aortic valve replacement surgery and got a stroke during the surgery. Eventually he recovered but his sleep never fully recovered since. </p><p>He had right-sided hip replacement surgery on 01/29/2020, after that he had severe peroneal nerve damage, he is now getting physical therapy but he has constant burning pain. He just had an EMG yesterday, results are pending.
</p><p>He is very discouraged.
</p><p>
&lt ;/p><p>
</p><p>He offers no other complaints.</p><p>He hasunderlying moderate to severe COPD for which he is using Dulera twice a day and Anoro once a day. Heis using samples. He is alternating these with Trelegy once a day samples. He also has a DuoNeb nebul izer. He uses albuterol fairly seldom now.</p><p>He feels that his breathing is stable and good</p><p>He uses lorazepam very seldom for anxiety, sometimes at night. Otherwise uses no hypnotics.</p><p>He is currently on Myrbetriq for his urinary problems. He was not started on DDAVP</p><p>He already got the flu shot
</p><p>
</p><p>Social history: He quit smoking in 2009 with a 39-yxly-mjci smoking history</p> Review of Systems ? Notes: <p>as above </p> Physical Exam ? Notes: <p>Elderly man in no acute d istress</p><p>
</p><div>HEENT: Nose no polyps</div><div>
</div>< div>throat clear no congestion exudate trush</div><div>
</div><d iv>Neck: Supple, no JVD or lymphadenopathy</div><div><b r></div><div>Chest: Bilateral air entry with clear breath sounds</div><div>
</div><div>No wheezing, crepitations or crackles or prolonged expiratory phas e, even on forceful exhalation</div><div>
</d iv><div>Heart: S1-S2 normal</div><div>
</div>< div>Extremities: Mild clubbing, no edema or cyanosis</div><div>
</div ><div>Neuro: Alert Oriented ?3. He has a right-sided foot drop, and b urning pain on the lateral side of the mcmahan</div>
--- OUTSIDE RECORDS SUMMARY | 2020-04-01 00:28 | XMS_ITS ---
:1945 Author Care Team Providers Name Role Phone GENESISGet LINO Primary Care Provider [phone] MARIA ESTHER STONE MD Urologist [phone] YARELI KLEIN MD Carbonizer Tester [phone] SUMAN ORLANDO MD Adaptive Physical Education Teacher [phone] Allergies Code Code System Name Reaction Severity Status Onset NKDA ? Notes: No seafood allergy. No kn own contrast allergy. Medications Name Status Start Date Stop Date ? ? acetaminophen 500 mg tablet Completed 02/09/2014 03/0 08/2014 2 (two) Tablet Tablet: every 6 hours amiodarone 400 mg tablet Completed 02/27/2014 015 1 (one) Tablet Tablet: daily amoxicillin 875 mg tablet Completed 11/18/20112013 1 Tablet: bid - twice daily Anoro Ellipta 62.5 mcg-25 Active ? Not av ailable mcg/actuation powder for inhalation azithromycin 250 mg tablet Completed ? 03/15 Dulera 200 mcg-5 mcg/actuation HFA aerosol inhaler Active ? Not available 2 puffs every other day; used in place of Symbicort when he doesn't have the Symbicort enoxaparin 120 mg/0.8 mL subcutaneous syringe Completed 02/25/2014 1 (one) milliliter Milliliter: daily enoxaparin 80 mg/0.8 mL subcutaneous syringe Completed 02/27/2014 1 (one) vial vial: bid - twice daily erythromycin ethylsuccinate 400 mg tablet Completed 200905/05/2010 1 (one) Tablet: two times daily furosemide 20 mg tablet Completed 02/22/2014 06/14/19 15 2 (two) Tablet: daily gabapentin 100 mg capsule Active ? Not av ailable Take 1 capsule every day by oral route. Guaifenesin AC 10 mg-100 mg/5 mL oral liquid Completed 10/18/2016 1 (one) teaspoon: q 6 hours prn cough/congestion hydromorphone 2 mg tablet Completed 02/09/20142014 2 (two) Tablet Tablet: every 4 hours as needed ipratropium 0.5 mg-albuterol 3 mg (2.5 mg base)/3 mL nebulizatio n soln Active ? Not available Inhale 3 mL 4 times a day by nebulization route as needed for 3 0 days. levofloxacin 500 mg tablet Completed ? 04/09 Longs Adult Low Strength ASA 81 mg tablet,delayed release Active ? Not available Take 1 tablet every day by oral route. lorazepam 0.5 mg tablet Active ? Not avai lable 1 tablet up to every 3-4 hours prn panic x 7 days. Max = 7/day . metoprolol tartrate 50 mg tablet Completed 03/19/2014 03/31/2016 1 (one) Tablet: two times daily Myrbetriq 50 mg tablet,extended release Active ? Not available 1 tab once a day on M, W, Th, Sa only yupnxzfb-yzkyonsty-kwhvfyjfm 3.5 mg-10,000 unit/mL-1 % ear d rops,susp Completed 05/05/2010 02/14/2014 3-4 gtts Suspension: as directed, prn penicillin V potassium 500 mg Active ? No t available tablet prednisone 10 mg tablet Completed ? 04/09/20 19 prednisone 20 mg tablet Completed ? 03/15/20 19 Pulmicort Flexhaler 180 mcg/actuation breath activated Completed 12/01/2012 02/14/2014 1 inhalation inhalation: bid (Can go to 2 BID if lung infection ) Symbicort 160 mcg-4.5 Active ? Not availa ble mcg/actuation HFA aerosol inhaler tamsulosin 0.4 mg capsule Completed 11/07/20132013 1 Capsule: daily Trelegy Ellipta 100 mcg-62.5 Active ? Not available mcg-25 mcg powder for inhalation Ventolin HFA 90 mcg/actuation aerosol inhaler Active ? Not available Inhale 2 puffs every 4 hours by inhalation route as needed for 30 days. warfarin 5 mg tablet Completed 02/27/2014 07/31/2014 1 (one) Tablet Tablet: As directed Notes: alternates inhalers eithe r takes trelegy, or anoro & symbicort, or, Anoro and dulera Problems Name Status Onset Date Source ? Ex-smoker Active 03/08/2018 ? Transient Visual Loss Active 02/20/2019 ? Unstable Knee Unknown 02/20/2019 ? Unstable Knee Active 02/20/2019 ? Obstructive Sleep Apnea Syndrome Active 08/17/2019 ? Acute Low Back Pain Active 08/27/2019 ? Streptococcal Sore Throat Unknown ? Histor y Anemia Unknown ? History Psychosexual Dysfunction Associated with Unknown ? History Inhibited Libido Impotence Unknown ? History Insomnia Active ? History Chronic Otitis Externa Unknown ? History Aortic Stenosis, Non-rheumatic Active ? H istory Atrial Fibrillation Unknown ? 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 History Cerebral Arteries Posterior Rhinorrhea Unknown ? History Disorder of Upper Respiratory System Unknown ? History Asthma Unknown ? History Chronic Obstructive Lung Disease Active ? History Large Prostate Active ? History Backache Unknown ? History Pain in Left Lower Limb Unknown ? History Lack of Energy Unknown ? History Dyspnea Unknown ? History Injury of Eye Region Unknown ? History Active Immunization Unknown ? History Postprocedural State Finding Unknown ? His tory Adult Health Examination Unknown ? History Ophthalmic Examination and Evaluation Unknown ? History SNOMED CT Concept Unknown ? History Clinical Finding Unknown ? History Procedure by Method Unknown ? History SNOMED CT Concept Unknown ? History Pain of Left Hip Joint Unknown ? History Pain in Left Knee Unknown ? History Procedures Date Name Performed by ? 01/29/2020 Hip Arthroscopy Dx Information not avai lable 08/23/2019 Injection Information not avai lable Notes: (R) Hip Injection 01/10/2014 Heart Valve Replacement Information not available ? Colonoscopy Information not avai lable 09/08/2017 CT, Chest, W/o Contrast [facility] sp[facility] Radiology (Internal) [address] [place] [address] (Work Place) 10/25/2017 US, Echocardiogram [facility] (Internal) [address] [place] [address] (Work Place) 12/20/2017 US, Echocardiogram [facility] (Internal) [address] [address] (Work Place) 03/08/2018 LDCT, Chest, for Lung Cancer [facility] Radiology (Internal) Screening [address] [address] (Work Place) 02/20/2019 [facility] [address] [facility] [address] [place], [place] [phone] (Work Place) 02/22/2019 XR, Knee, 3 View [facility] Radiology (Internal) [address] [place] [address] (Work Place) 04/09/2019 LDCT, Chest, for Lung Cancer [facility] Radiology (Internal) Screening [address] [place], [place] [address] (Work Place) 08/27/2019 XR, Lumbosacral Spine, 2 or 3 View [facility] Radiology (Internal) [address] [place], [place] [id number] (Work Place) 03/19/2020 LDCT, Chest, for Lung Cancer [facility] Radiology (Internal) Screening [address] [place], [place] [id number] (Work Place) Results Lab Results Date Name Specimen Result Interpretation Description Value Range Status Address ? 01/21/2020 Urinalysis, Urine ? Color Sondra ? ? P _urology: Dipstick, clean [address] Med[address] Reflex Micro catch [facility] ? ? Urine ? Appearance Clear ? ? P_uro logy: clean [address] [facility] ? ? Urine ? Glucose Normal ? ? P_urolog y: clean [address] [facility] ? ? Urine ? Bilirubin Negative ? ? P_ur ology: clean [address] [facility] ? ? Urine ? Ketones Trace ? ? P_urolog y: clean [address] [facility] ? ? Urine ? Specific 1.025 ? ? P_urolo gy: clean [place] [address] [facility] ? ? Urine ? Blood Negative ? ? P_urolog y: clean 41 [facility] ? ? Urine ? Ph 6.5 ? ? P_urology: clean [address] [facility] ? ? Urine ? Protein 1+ ? ? P_urolog y: clean [address] [facility] ? ? Urine ? Urobilinoge 0.2 ? ? P_ur ology: clean n [address] [facility] ? ? Urine ? Nitrite negative ? ? P_urol ogy: clean [address] [facility] ? ? Urine ? Leukocyte Negative ? ? P_ur ology: clean Esterase 41 Medic al catch [facility] 09/27/2019 CMP, Serum or S ? g/r 92 mg/dL 74-106 Emani l [place] Plasma mg/dL [facility] Hospital Lab (Internal) : [address] ? ? S ? Bun 14 mg/dL 9-20 Final North mg/dL [facility] Hospital Lab (Internal) : [address] ? ? S ? Crea 0.80 mg/dL 0.66-1. Final North 25 Country mg/dL Hospital Lab (Internal) : [address] ? ? S ? Ca 9.0 mg/dL 8.4-10. Final North 2 mg/dL [facility] Hospital Lab (Internal) : [address] ? ? S Low Na 134 mmol/L 137-145 Final North mmol/L [facility] Hospital Lab (Internal) : [address] ? ? S ? K 4.3 mmol/L 3.5-5.1 Final North mmol/L [facility] Hospital Lab (Internal) : [address] ? ? S ? Cl 99 mmol/L 98-107 Final North mmol/L [facility] Hospital Lab (Internal) : [address] ? ? S ? Tco2 25.0 mmol/L 22.0-30 Final Nort h .0 Country mmol/L Hospital Lab (Internal) : [address] ? ? S ? Tp 6.9 g/dL 6.3-8.2 Final North g/dL [facility] Hospital Lab (Internal) : [address] ? ? S ? Alb 4.0 g/dL 3.5-5.0 Final North g/dL [facility] Hospital Lab (Internal) : [address] ? ? S ? Tbil 0.5 mg/dL 0.2-1.3 Final North mg/dL [facility] Hospital Lab (Internal) : [address] ? ? S ? Alp 74 U/L 38-126 Final North U/L [facility] Hospital Lab (Internal) : [address] ? ? S ? Alt (Sgpt) 27 U/L 21-72 Final [place] U/L [facility] Hospital Lab (Internal) : [address] ? ? S ? Ast (Sgot) 44 U/L 17-59 Final [place] U/L [facility] Hospital Lab (Internal) : [address] 09/27/2019 Vitamin B12, S ? Vit B12 905.0 pg/mL 239.0-9 Final [place] Serum 31.0 Country pg/mL Hospital Lab (Internal) : [address] 09/27/2019 Folate, Serum S ? Folate >17.00 2.76-20 Emani l [place] NG/mL .00 Country NG/mL Hospital Lab (Internal) : [address] 06/26/2019 Urinalysis, Urine ? Color Yellow ? ? P _urology: Dipstick, clean 41 Medi mell Reflex Micro catch [facility] ? ? Urine ? Appearance Clear ? ? P_uro logy: clean 41 [facility] ? ? Urine ? Glucose Normal ? ? P_urolog y: clean 41 [facility] ? ? Urine ? Bilirubin Negative ? ? P_ur ology: clean 41 [facility] ? ? Urine ? Ketones Negative ? ? P_urol ogy: clean 41 [facility] ? ? Urine ? Specific 1.020 ? ? P_urolo gy: clean [place] [address] [facility] l [facility] ? ? Urine ? Blood Negative ? ? P_urolog y: clean 41 [facility] ? ? Urine ? Ph 7.0 ? ? P_urology: clean 41 [facility] ? ? Urine ? Protein Negative ? ? P_urol ogy: clean 41 [facility] ? ? Urine ? Urobilinoge 0.2 ? ? P_ur ology: clean n 41 [facility] ? ? Urine ? Nitrite negative ? ? P_urol ogy: clean 41 [facility] ? ? Urine ? Leukocyte Negative ? ? P_ur ology: clean Esterase 41 Medic al catch [facility] 06/26/2019 Bladder Scan ? Date and 06/26/19 ? ? P_urology: (PROC) Time 1:10pm 41 Medical [facility] ? ? ? Amount in 15 mL ? ? P_urol ogy: Bladder 41 Med[address] l [facility] [place] 05/31/2019 CBC W/ Auto BLD ? Wbc 5.2 10*3/uL 5.0-10. Fi nal North Diff 0 Country 10*3/uL Hospital Lab (Internal) : [address] [place] ? ? BLD Low Rbc 4.47 4.60-6. Final North 10*6/uL 00 Country 10*6/uL Hospital Lab (Internal) : [address] [place] ? ? BLD ? Hgb 14.2 g/dL 14.0-18 Final North .0 g/dL [facility] Hospital Lab (Internal) : [address] [place] ? ? BLD ? Hct 42.5 % 41.0-51 Final North .0 % Country Hospital Lab (Internal) : [address] [place] ? ? BLD ? Mcv 95.1 fL 80.0-96 Final North .0 fL [facility] Hospital Lab (Internal) : [address] [place] ? ? BLD ? Mch 31.8 pg 26.0-32 Final North .0 pg [facility] Hospital Lab (Internal) : [address] [place] ? ? BLD ? Mchc 33.4 g/dL 31.0-35 Final North .0 g/dL [facility] Hospital Lab (Internal) : [address] [place] ? ? BLD ? Rdw 13.6 % 11.5-14 Final North .5 % [facility] Hospital Lab (Internal) : [address] [place] ? ? BLD ? Plt 178 10*3/uL 130-450 Final Nort h 10*3/uL [facility] Hospital Lab (Internal) : [address] [place] ? ? BLD ? Anc 2.82 ? Final North 10*3/uL [facility] Lab (Internal) : [address] [place] ? ? BLD ? Neutro 53.9 % 40.0-75 Final North .0 % [facility] Hospital Lab (Internal) : [address] [place] ? ? BLD ? Lymph 33.1 % 20.0-50 Final North .0 % [facility] Hospital Lab (Internal) : [address] ? ? BLD ? Dukes 7.8 % 2.0-10. Final North 0 % [facility] Hospital Lab (Internal) : [address], [place] ? ? BLD ? Eos 4.2 % 1.0-6.0 Final North [facility] Hospital Lab (Internal) : [address], [place] ? ? BLD ? Baso 0.8 % 0.0-1.0 Final North % [facility] Hospital Lab (Internal) : [address] ? ? BLD ? Ig 0.2 % 0.0-0.9 Final [facility] Hospital Lab (Internal) : [address] 05/31/2019 CMP, Serum or S ? g/r 88 mg/dL 74-106 [place] Plasma mg/dL [facility] Hospital Lab (Internal) : [address] ? ? S ? Bun 14 mg/dL 9-20 Final North mg/dL [facility] Hospital Lab (Internal) : [address] ? ? S ? Crea 0.70 mg/dL 0.66-1. Final North 25 Country mg/dL Hospital Lab (Internal) : [address] ? ? S ? Ca 9.0 mg/dL 8.4-10. Final North 2 mg/dL [facility] Hospital Lab (Internal) : [address] ? ? S Low Na 131 mmol/L 137-145 Final [place] mmol/L [facility] Hospital Lab (Internal) : [address] ? ? S ? K 4.4 mmol/L 3.5-5.1 Final [place] mmol/L [facility] Hospital Lab (Internal) : [address] ? ? S Low Cl 97 mmol/L 98-107 Final [place] mmol/L [facility] Hospital Lab (Internal) : [address] ? ? S ? Tco2 25.0 mmol/L 22.0-30 Final Nort h .0 Country mmol/L Hospital Lab (Internal) : [address] ? ? S ? Tp 6.9 g/dL 6.3-8.2 Final North g/dL [facility] Hospital Lab (Internal) : [address] ? ? S ? Alb 4.0 g/dL 3.5-5.0 Final [place] g/dL [facility] Hospital Lab (Internal) : [address] ? ? S ? Tbil 0.6 mg/dL 0.2-1.3 Final [place] mg/dL [facility] Hospital Lab (Internal) : [address] ? ? S ? Alp 92 U/L 38-126 Final [place] U/L [facility] Hospital Lab (Internal) : [address] ? ? S ? Alt (Sgpt) 25 U/L 21-72 Final [place] U/L [facility] Hospital Lab (Internal) : [address] ? ? S ? Ast (Sgot) 37 U/L 17-59 Final [place] U/L [facility] Lab (Internal) : [address] [facility] 05/31/2019 PSA, Serum or S ? PSA, Total 0.9 NG/mL 0.0-4 .0 Final [place] Plasma NG/mL [facility] Lab (Internal) : [address] [facility] 05/31/2019 TSH, Serum or S ? Tsh 1.75 0.47-4. Final [place] Plasma u[IU]/mL 68 Country u[IU]/m Hospital L Lab (Internal) : [address] [facility] 05/31/2019 T4, Free, S ? Ft4 0.86 NG/dL 0.78-2. Final [place] Serum 19 Country NG/dL Hospital Lab (Internal) : [address] 05/31/2019 ESR BLD ? Esr 1 mm/h 0-20 Final [place] (Erythrocyte mm/h Coun try [facility] Rate), Blood Lab (Internal) : [address] 03/07/2019 CBC W/ Auto BLD - Wbc 5.1 10*3/uL 5.0-10. Fi nal North Diff 0 Country 10*3/uL Hospital Lab (Internal) : [address] ? ? BLD Low Rbc 4.35 4.60-6. Final [place] 10*6/uL 00 Country 10*6/uL Hospital Lab (Internal) : [address] ? ? BLD - Hgb 14.0 g/dL 14.0-18 Final North .0 g/dL [facility] Hospital Lab (Internal) : [address] ? ? BLD - Hct 41.1 % 41.0-51 Final North .0 % [facility] Hospital Lab (Internal) : [address] ? ? BLD - Mcv 94.5 fL 80.0-96 Final North .0 fL [facility] Lab (Internal) : [address] ? ? BLD High Mch 32.2 pg 26.0-32 Final North .0 pg [facility] Hospital Lab (Internal) : [address] ? ? BLD - Mchc 34.1 g/dL 31.0-35 Final North .0 g/dL [facility] Hospital Lab (Internal) : [address] ? ? BLD - Rdw 13.9 % 11.5-14 Final North .5 % [facility] Hospital Lab (Internal) : [address] ? ? BLD - Plt 156 10*3/uL 130-450 Final Nort h 10*3/uL [facility] Lab (Internal) : [address] 03/07/2019 CMP, Serum or S High g/r 115 mg/dL 74-106 Fin al North Plasma mg/dL [facility] Hospital Lab (Internal) : [address] ? ? S - Bun 11 mg/dL 9-20 Final [place] mg/dL [facility] Hospital Lab (Internal) : [address] ? ? S - Crea 0.80 mg/dL 0.66-1. Final North 25 Country mg/dL Hospital Lab (Internal) : [address] ? ? S - Ca 8.9 mg/dL 8.4-10. Final North 2 mg/dL [facility] Hospital Lab (Internal) : [address] ? ? S Low Na 135 mmol/L 137-145 Final [place] mmol/L [facility] Hospital Lab (Internal) : [address] ? ? S - K 3.9 mmol/L 3.5-5.1 Final [place] mmol/L [facility] Hospital Lab (Internal) : [address] ? ? S - Cl 103 mmol/L 98-107 Final [place] mmol/L [facility] Lab (Internal) : [address] ? ? S - Tco2 25.0 mmol/L 22.0-30 Final Nort h .0 [facility] mmol/L Hospital Lab (Internal) : [address] ? ? S - Tp 6.8 g/dL 6.3-8.2 Final [place] g/dL [facility] Hospital Lab (Internal) : [address] ? ? S - Alb 3.7 g/dL 3.5-5.0 Final [place] g/dL [facility] Lab (Internal) : [address] ? ? S - Tbil 0.3 mg/dL 0.2-1.3 Final [place] mg/dL [facility] Lab (Internal) : [address] ? ? S - Alp 78 U/L 38-126 Final [facility] Lab (Internal) : [address] ? ? S - Alt (Sgpt) 29 U/L 21-72 Final [place] U/[facility] Lab (Internal) : [address] ? ? S - Ast (Sgot) 29 U/L 17-59 Final [facility] Lab (Internal) : [address] obrien 03/07/2019 D-dimer, PLASMA High Dimq 0.92 mg/L 0.00-0. Final [place] Quant, Plasma 50 mg/L [facility] Lab (Internal) : [address] micah 03/07/2019 Differential, BLD - Polys 69 % 40-75 % Final [facility] Blood [facility] Lab (Internal) : [address] ? ? BLD - Bands 0 % 0-5 % Final [facility] Lab (Internal) : [address] ? ? BLD Low Lymphs 15 % 20-50 % Final [facility] Lab (Internal) : [address] ? ? BLD - Dukes 6 % 2-10 % Final [facility] Lab (Internal) : [address] ? ? BLD - Eos 4 % 0-6 % Final [facility] Lab (Internal) : [address] ? ? BLD - Baso 0 % 0-1 % Final [facility] Lab (Internal) : [address] ? ? BLD - Atyp Lymph 5 % ? Final [facility] Lab (Internal) : [address] ? ? BLD High Young Forms 1 % 0-0 % Final Nort h [facility] Lab (Internal) : [address] ? ? BLD - Plts, Est. adequate adequat Final No rth e [facility] Lab (Internal) : [address] ? ? BLD - RBC normal normal Final [facility] Hospital Lab (Internal) : [address] 03/07/2019 Neutrophil BLD - Anc-manual 3.53 ? Emani l [place] Count, 10*3/uL [facility] (Anc), Blood Lab (Internal) : [address] 03/07/2019 Troponin I, S - Trop <0.06 NG/mL 0.00-0. Fi nal [place] Serum or 06 [facility] Plasma NG/mL Hospital Lab (Internal) : [address] 11/16/2016 Venipuncture BLD ? Venpn* ? ? Final [facility] Lab (Internal) : [address] 11/16/2016 Borrelia S ? Lyme negative ? Final No rth Burgdorferi Antibody Cou ntry Ab, [facility] Immunoassay, Lab Serum (Internal) : [address] 11/16/2016 Lipid Panel, S ? Chol 178 mg/dL 50-200 Emani l [place] Serum mg/dL [facility] Lab (Internal) : [address] ? ? S ? Trig 72 mg/dL 10-150 Final [place] mg/dL [facility] Lab (Internal) : [address] ? ? S High Hdl 72 mg/dL 40-60 Final [place] mg/dL [facility] Lab (Internal) : [address] ? ? S ? Ldl 92 mg/dL 0-130 Final [place] mg/dL [facility] Lab (Internal) : [address] ? Venipuncture ? Location Left ? ? P _nc Antecubital Prima ry Care [place]: [address] , [place] ? ? ? Needle 21g ? ? P_nc Vacutainer Primar y Care [place]: [address] , [place] ? ? ? Number of 1 ? ? P_nc Attempts Primary [facility] [place]: [address] , [place] ? ? ? Successful Yes ? ? P_nc Primary [facility] [place]: [address] , [place] ? ? ? Dressing Pressure ? ? P_nc Band-aid Primary Applied [facility] [place]: [address] , [place] ? ? ? Initials kk ? ? P_nc Primary [facility] [place]: [address] , [place] ? Venipuncture ? Location Right ? ? P _nc Antecubital Prima ry Care [place]: [address] , [place] ? ? ? Needle 21g ? ? P_nc Vacutainer Primar y Care [place]: [address] , [place] ? ? ? Number of 1 ? ? P_nc Attempts Primary [facility] [place]: [address] , [place] ? ? ? Successful Yes ? ? P_nc Primary [facility] [place]: [address] , [place] ? ? ? Dressing Pressure ? ? P_nc Band-aid Primary Applied [facility] [place]: [address] , [place] ? ? ? Initials kk ? ? P_nc Primary [facility] [place]: [address] , [place] ? Fecal Occult ? No ? ? ? P_nc Blood X 3, observation P rimary Stool recorded. Care [place]: [address] , [place] Past Encounters 03/19/2020 Suman Orlando MD: [address] [place] [address], Ph. 03/19/2020 Chronic Obstructive Lung Disease; Insomn ia; Obstructive Sleep Apnea Syndrome; Ex-smoker Yareli Klein MD: [address] [place] [address], Ph. 01/21/2020 Nocturia; Overactive Bladder; Hyponatrem ia Maria Esther Stone MD: [address] [place] [address], Ph. 12/19/2019 Chronic Obstructive Lung Disease; Noctur ia Yareli Klein MD: [address] [place] [address], Ph. 09/26/2019 Macrocytosis; Hyponatremia; Overactive B ladder MARNI KunzC: [address] [place] [address], Ph. 08/27/2019 Acute Low Back Pain MARNI KunzC: [address] [place] [address], Ph. 08/17/2019 Chronic Obstructive Lung Disease; Insomn ia; Obstructive Sleep Apnea Syndrome Yareli Klein MD: [address] [place] [address], Ph. 08/10/2019 Overactive Bladder; Nocturia Maria Esther Stone MD: [address] [place] [address], Ph. 07/05/2019 Fatigue; Hyponatremia; History of Anemia Vitamin B12 Deficient; Neuralgia MARNI KunzC: [address] [place] [address], Ph. 06/26/2019 Urgent Desire to Urinate; Urge Incontine nce of Urine; Increased Frequency of Urination; Nocturia Maria Esther Stone MD: [address] [place] [address], Ph. 05/31/2019 Adult Health Examination; Benign Prostat ic Hyperplasia; Fatigue MARNI KunzC: [address] [place] [address], Ph. 04/09/2019 Chronic Obstructive Lung Disease; Ex-smo ker Yraeli Klein MD: [address] [place] [address], Ph. 03/15/2019 Acute Exacerbation of Chronic Obstructiv e Airways Disease Holly Huitron, BLOOD BANK SPECIALIST: [address] [place] [address], [place] [address], Ph. 02/20/2019 Unstable Knee; Blurring of Visual Image; Cerebral Infarction Due to Embolism of Cerebral Arteries MARNI KunzC: [address] [place] [phone], Ph. Social History Tobacco Smoking Status Former Smoker Notes: Quit in 2006. Started at age 14. Average of a pack a day Vaccine List Vaccine Type influenza, high dose seasonal 12/29/2016?0.5 mL 01/03/2018?0.5 mL influenza, seasonal, injectable, preserv ative free 05/19/2010?0.5 mL 12/31/2010?0.5 mL 01/08/2014?0.5 mL influenza, trivalent, adjuvanted 01/05/2019 01/14/2020 pneumococcal conjugate PCV 13 06/12/2015?0.5 mL pneumococcal polysaccharide PPV23 06/30/2010?0.5 mL Tdap 05/02/2014?0.5 mL Plan of Care Reminders Provider Appointments None ? ? recorded. Lab None ? ? recorded. Referral None ? ? recorded. Procedures None ? ? recorded. Surgeries None ? ? recorded. Imaging None ? ? recorded. Vitals 03/19/2020 10:00AM Follow Up 30 Height Weight BMI Blood Pressure 172.72 cm 87 kg 29.2 kg/m2 128/74 mm[Hg] 03/19/2020 11:00AM Consult 45 Height Weight BMI Blood Pressure 172.72 cm 87.15 kg 29.2 kg/m2 145/76 mm[Hg] 01/21/2020 10:30AM Acute 15 Height Weight BMI Blood Pressure 172.72 cm 85.23 kg 28.6 kg/m2 120/78 mm[Hg] 12/19/2019 09:30AM Follow Up 30 Height Weight BMI Blood Pressure 172.72 cm 85.2 kg 28.6 kg/m2 114/58 mm[Hg] 09/26/2019 03:40PM Follow Up 40 Height Weight BMI Blood Pressure 172.72 cm 84.82 kg 28.4 kg/m2 120/80 mm[Hg] 08/27/2019 09:20AM Acute 20 Height Weight BMI Blood Pressure 172.72 cm 87.09 kg 29.2 kg/m2 120/80 mm[Hg] 08/17/2019 10:30AM Follow Up 30 Height Weight BMI Blood Pressure 172.72 cm 86.2 kg 28.9 kg/m2 128/76 mm[Hg] 08/10/2019 12:00PM Office 15 Height Weight BMI Blood Pressure 172.72 cm 88.9 kg 29.8 kg/m2 128/78 mm[Hg] 06/26/2019 01:00PM Office 15 Height Blood Pressure 172.72 cm 136/68 mm[Hg] 05/31/2019 10:20AM AWV 40 Height Weight BMI Blood Pressure 172.72 cm 88.45 kg 29.6 kg/m2 120/80 mm[Hg] 04/09/2019 11:30AM Follow Up 30 Height Weight BMI Blood Pressure 172.72 cm 86.1 kg 28.9 kg/m2 121/63 mm[Hg] 03/15/2019 02:40PM Same Day 20 Height Weight BMI Blood Pressure 172.72 cm 84.82 kg 28.4 kg/m2 116/76 mm[Hg] 02/20/2019 09:20AM Follow Up 20 Height Weight BMI Blood Pressure 172.72 cm 84.37 kg 28.3 kg/m2 110/70 mm[Hg] 06/19/2018 03:20PM Acute 20 Height Weight BMI Blood Pressure 172.72 cm 85.73 kg 28.7 kg/m2 142/76 mm[Hg] 04/07/2018 01:00PM Acute 20 Height Weight BMI Blood Pressure 172.72 cm 88.9 kg 29.8 kg/m2 132/74 mm[Hg] 03/08/2018 10:30AM Follow Up 30 Height Weight BMI Blood Pressure 172.72 cm 86.9 kg 29.1 kg/m2 124/72 mm[Hg] 09/08/2017 11:00AM Follow Up 30 Height Weight BMI Blood Pressure 172.72 cm 86.91 kg 29.1 kg/m2 120/58 mm[Hg] 07/15/2017 Blood Pressure 130/80 mm[Hg] 11/02/2016 Height Weight Blood Pressure 172.72 cm 86.18 kg 116/62 mm[Hg] 10/08/2016 Weight Blood Pressure 85.73 kg 120/78 mm[Hg] 07/21/2016 Height Weight Blood Pressure 172.72 cm 86.64 kg 116/70 mm[Hg] 05/20/2016 Height Weight Blood Pressure 172.72 cm 89.36 kg 118/80 mm[Hg] 04/20/2016 Height Weight Blood Pressure 172.72 cm 88.9 kg 120/80 mm[Hg] 03/31/2016 Height Weight Blood Pressure 172.72 cm 80.29 kg 136/80 mm[Hg] 07/17/2015 Height Weight Blood Pressure 172.72 cm 85.28 kg 120/76 mm[Hg] 06/12/2015 Height Weight Blood Pressure 175.26 cm 87.54 kg 129/78 mm[Hg] 03/12/2015 Height Weight Blood Pressure 175.26 cm 87.54 kg 127/78 mm[Hg] 12/26/2014 Height Weight Blood Pressure 175.26 cm 85.96 kg 118/72 mm[Hg] 11/28/2014 Height Weight Blood Pressure 175.26 cm 86.18 kg 120/70 mm[Hg] 11/06/2014 Height Weight Blood Pressure 175.26 cm 86.18 kg 116/70 mm[Hg] 11/05/2014 Height Weight Blood Pressure 175.26 cm 85.96 kg 124/62 mm[Hg] 10/03/2014 Height Weight Blood Pressure 175.26 cm 84.14 kg 110/64 mm[Hg] 09/18/2014 Height Weight Blood Pressure 175.26 cm 85.5 kg 120/60 mm[Hg] 07/31/2014 Height Weight Blood Pressure 173.99 cm 87.77 kg 126/74 mm[Hg] 06/13/2014 Blood Pressure 114/62 mm[Hg] 05/29/2014 Weight Blood Pressure 88.9 kg 118/60 mm[Hg] 05/02/2014 Height Weight Blood Pressure 173.99 cm 85.73 kg 134/80 mm[Hg] 04/09/2014 Weight Blood Pressure 86.18 kg 110/58 mm[Hg] 03/26/2014 Blood Pressure 100/62 mm[Hg] 03/19/2014 Height Weight Blood Pressure 177.8 cm 84.37 kg 104/62 mm[Hg] 03/12/2014 Weight Blood Pressure 83.91 kg 112/60 mm[Hg] 03/06/2014 Weight Blood Pressure 84.37 kg 110/60 mm[Hg] 03/01/2014 Height Weight Blood Pressure 177.8 cm 83.46 kg 120/62 mm[Hg] 02/27/2014 Height Weight Blood Pressure 177.8 cm 84.37 kg 120/68 mm[Hg] 02/25/2014 Weight Blood Pressure 86.18 kg 120/80 mm[Hg] 02/22/2014 Height Weight Blood Pressure 177.8 cm 87.54 kg 132/82 mm[Hg] 01/08/2014 Height Weight Blood Pressure 177.8 cm 84.37 kg 138/56 mm[Hg] 11/07/2013 Height Weight Blood Pressure 177.8 cm 82.1 kg 118/54 mm[Hg] 11/30/2012 Height Weight Blood Pressure 177.8 cm 81.65 kg 134/58 mm[Hg] 11/11/2011 Height Weight Blood Pressure 177.8 cm 81.65 kg 142/60 mm[Hg] 12/31/2010 Height Weight Blood Pressure 177.8 cm 83.01 kg 138/68 mm[Hg] 05/05/2010 Weight Blood Pressure 81.19 kg 138/60 mm[Hg] 02/18/2010 Height Weight Blood Pressure 177.8 cm 80.29 kg 124/58 mm[Hg]
--- NOTE | 2020-04-01 14:30 | DI.MRI_ITS ---
EXAM: MR LUMBAR SPINE WO CLINICAL HISTORY: ?stenosis with right peroneal neuropathy,LUMBAR RADICULOPATHY,M54.16,RT. TECHNIQUE: Multiplanar multisequence MRI of the Lumbar spine was performed. COMPARISON: No exams were available for comparison FINDINGS: Bones: The last intervertebral disc space is designated the L5/S1 level for the numbering purpose of this examination. The vertebral body heights are well maintained. Alignment is satisfactory. Mild d egenerative endplate signal changes are seen at L2-L3. Cord: The conus tip ends at the T12 level. It is of normal size and signal intensity. T12-L1: No disc herniations or bulges are present. No central spinal canal or neural foraminal stenos is. L1-2: No disc herniations or bulges are present. No central spinal canal or neural foraminal stenosis . L2-3: There is a mild diffuse disc bulge. No central spinal canal or neural foraminal stenosis. L3-4: There is a mild diffuse disc bulge. Mild hypertrophic changes of the facets and ligamentum fla vum are present. There is mild narrowing of the central spinal canal.No significant neural foraminal stenosis. L4-5: There is a diffuse disc bulge. There are hypertrophic changes of the facets and ligamentum fla vum. Mild central spinal canal stenosis is present.Mild bilateral neural foraminal stenosis is prese nt. L5-S1: No disc herniations or bulges are present. No central spinal canal or neural foraminal stenosi s. Soft tissues: The visualized SI joints and sacrum are well maintained. The paraspinal soft tissues ar e unremarkable. IMPRESSION: Degenerative changes in the lumbar spine as described above. Findings do result in narrowing of the central spinal canal neural foramen, particularly at the L3-4 and L4-L5 levels. Please see the above discussion for complete details. DATA REPOSITORY:
== END 2020-04-01 00:46 ==
PROVIDERS: PCP Physician Assistant Medical; Visit Provider Psychiatry & Neurology Neurology
DX: M54.16 Radiculopathy, lumbar region (principal); M48.061 Spinal stenosis, lumbar region without neurogenic claudication; M51.26 Other intervertebral disc displacement, lumbar region
CPT/HCPCS: 72148

== ENCOUNTER → 2020-04-16 08:30 | Outpatient (BNVA) | payer MEDICARE, BC, SELFPAY | PROVIDERS: PCP Physician Assistant Medical; Referring Provider Physician Assistant Medical; Visit Provider Psychiatry & Neurology Neurology | DX: G60.9 Hereditary and idiopathic neuropathy, unspecified (principal); M21.371 Foot drop, right foot | CPT/HCPCS: 99443 ==

== ENCOUNTER → 2020-05-05 10:36 | Outpatient (BNVA) | payer MEDICARE, BC, SELFPAY | PROVIDERS: PCP Physician Assistant Medical; Referring Provider Physician Assistant Medical; Visit Provider Student in an Organized Health Care Education/Training Program | DX: Z96.641 Presence of right artificial hip joint (principal); G57.31 Lesion of lateral popliteal nerve, right lower limb; Z47.1 Aftercare following joint replacement surgery | CPT/HCPCS: 99213 ==

== ENCOUNTER → 2020-07-07 10:38 | Outpatient (BNVA) | payer MEDICARE, BC, SELFPAY | PROVIDERS: PCP Physician Assistant Medical; Referring Provider Physician Assistant Medical; Visit Provider Student in an Organized Health Care Education/Training Program | DX: Z47.1 Aftercare following joint replacement surgery (principal); Z96.641 Presence of right artificial hip joint; M17.12 Unilateral primary osteoarthritis, left knee; G57.31 Lesion of lateral popliteal nerve, right lower limb | CPT/HCPCS: 20610; 99213; J7318 ==

== ENCOUNTER → 2020-07-22 08:24 | Outpatient (BNVA) | payer MEDICARE, BC, SELFPAY | PROVIDERS: PCP Physician Assistant Medical; Referring Provider Physician Assistant Medical; Visit Provider Psychiatry & Neurology Neurology | DX: G62.9 Polyneuropathy, unspecified (principal); M21.371 Foot drop, right foot; G56.01 Carpal tunnel syndrome, right upper limb; G56.22 Lesion of ulnar nerve, left upper limb | CPT/HCPCS: 95886; 95913 ==

== ENCOUNTER → 2020-09-01 11:08 | Outpatient (BNVA) | payer MEDICARE, BC, SELFPAY | PROVIDERS: PCP Physician Assistant Medical; Referring Provider Physician Assistant Medical; Visit Provider Student in an Organized Health Care Education/Training Program | DX: Z47.1 Aftercare following joint replacement surgery (principal); Z96.641 Presence of right artificial hip joint; M17.11 Unilateral primary osteoarthritis, right knee; G57.31 Lesion of lateral popliteal nerve, right lower limb | CPT/HCPCS: 20610; J7318 ==

== ENCOUNTER → 2020-11-28 11:28 | Outpatient (BNVA) | payer MEDICARE, BC, SELFPAY | PROVIDERS: PCP Physician Assistant Medical; Referring Provider Physician Assistant Medical; Visit Provider Student in an Organized Health Care Education/Training Program | DX: M21.371 Foot drop, right foot (principal); G57.31 Lesion of lateral popliteal nerve, right lower limb; Z96.641 Presence of right artificial hip joint | CPT/HCPCS: 99213 ==

== ENCOUNTER → 2021-01-15 09:32 | Outpatient (BNVA) | payer MEDICARE, BC, SELFPAY | PROVIDERS: PCP Physician Assistant Medical; Referring Provider Physician Assistant Medical; Visit Provider Student in an Organized Health Care Education/Training Program | DX: M17.12 Unilateral primary osteoarthritis, left knee (principal) | CPT/HCPCS: 20610; J7318 ==

== ENCOUNTER → 2021-03-09 10:18 | Outpatient (BNVA) | payer MEDICARE, BC, SELFPAY | PROVIDERS: PCP Physician Assistant Medical; Referring Provider Physician Assistant Medical; Visit Provider Student in an Organized Health Care Education/Training Program | DX: M17.11 Unilateral primary osteoarthritis, right knee (principal); G57.31 Lesion of lateral popliteal nerve, right lower limb | CPT/HCPCS: 20610; J7318 ==

== ENCOUNTER → 2021-07-20 10:27 | Outpatient (BNVA) | payer MEDICARE, BC, SELFPAY | PROVIDERS: PCP Physician Assistant Medical; Referring Provider Physician Assistant Medical; Visit Provider Student in an Organized Health Care Education/Training Program | DX: M17.12 Unilateral primary osteoarthritis, left knee (principal) | CPT/HCPCS: 20610; 99212; J7318 ==

== ENCOUNTER → 2021-09-14 10:03 | Outpatient (BNVA) | payer MEDICARE, BC, SELFPAY | PROVIDERS: PCP Physician Assistant Medical; Referring Provider Physician Assistant Medical; Visit Provider Student in an Organized Health Care Education/Training Program | DX: M17.11 Unilateral primary osteoarthritis, right knee (principal) | CPT/HCPCS: 20610; J7318 ==

== ENCOUNTER 2021-12-08 21:49 | Emergency (ER) | payer MEDICARE, BC, SELFPAY ==
[2021-12-08 21:56] VITALS: BP 129/74; PULSE 74; RESP 16; TEMP 36.8; O2SAT 95
--- NOTE | 2021-12-08 21:57 | W.ED.GENAD ---
Discharge Plan Disposition Patient Disposition: HOME Condition: Good Discharge Details Clinical Impression: Bursal abscess Primary Care Provider: Destiny Lucas ED Provider: Aidan Fields Meds and New Rx's Prescriptions: New cephalexin 500 mg capsule 500 mg PO Q8H Qty: 28 0RF Continued acetaminophen [Tylenol Extra Strength] 500 mg tablet 500 mg PO Q6H PRN (Reason: pain) Qty: 90 0RF lorazepam 0.5 mg tablet 0.5 mg PO QHS PRN Ventavis 10 mcg/mL solution for nebulization 5 mcg IH PRN PRN Trelegy Ellipta 100-62.5-25 mcg blister with device 1 inh IH .every other day (DME) Dynamic Ankle Foot Orthosis See Rx Instructions .ROUTE .MEDSUPPLY Qty: 1 0RF Rx Instructions: Please fit for a dynamic ankle-foot orthosis to accommodate Mr. Corea's peroneal nerve palsy with foot drop. Breztri Aerosphere 160-9-4.8 mcg/actuation HFA aerosol inhaler 2 inh inhalation BID Qty: 10.7 6RF escitalopram oxalate 10 mg tablet 10 mg PO DAILY Label Comments: TAKE ONE TABLET BY MOUTH EVERY DAY Discharge Instructions Instructions: Abscess (ED) Additional Instructions: You have a prepatellar bursa infection which we partially drained and sent the fluid for culture. Please keep your leg elevated most of the day to help with the swelling. You may continue ibuprofen or acetaminophen for pain. You were started on cephalexin to treat the infection and should pickle processor your prescription in the morning. Please contact Dr. Bey tomorrow for follow-up. Return to ED for fever, worsening pain, inability to ambulate, other concerns. Referrals: Jake Bey MD [ [facility] STAFF PHYSICIAN] - 2 days Discharge Data Discharge Date/Time-TO BE ENTERED AT DEPARTURE: 12/08/21 22:41 Medical Decision Making Patient presenting to ED with right knee pain, erythema, swelling which appears to be prepatellar bursa infection with distal edema likely related to gravity and dependence. Discussed with Dr. Bey who is on-call for orthopedics tonight. Patient verbally consented for aspiration of prepatellar bursa. Please see procedure note. For mL of pus aspirated and sent for culture. Patient started on cephalexin. Patient instructed to keep his leg elevated and continue to use ibuprofen or acetaminophen for pain. Contact Dr. Bey for follow-up. Return precautions discussed. Medical Records Medical records reviewed: Yes I reviewed the patient's medical records. HPI General Mode of arrival: ambulatory. Date/Time Provider Initiated Documentation: 12/08/21 21:49. Limitations to Documentation: no limitations. Information obtained by: patient and RN notes reviewed. HPI Narrative: Patient presents to ED with right knee pain, swelling, redness. Patient reports deep massaging his right knee last week when he had sudden onset of severe pain and localized swelling in the knee. He had difficulty ambulating but was able to with assistance. He was taken ibuprofen. He did call Dr. Bey's office. At that time he was having chest pain and swelling. Over the course of the next day or two he developed redness and warmth to the area with increased swelling but seemingly less pain. Today he has had increased erythema and now has swelling from the knee down to the ankle. He only has pain around the kneecap where he has the most swelling and redness. He is able to still ambulate and flex his knee. He denies any fever or chills. He denies feeling ill otherwise. He has no pain distal to the knee but does have decreased sensation and foot drop due to previous nerve injury. Related Data Home Medications Medication Instructions Recorded Confirmed iloprost 10 mcg/mL solution for 5 mcg inhalation PRN PRN 04/06/19 12/08/21 nebulization (Ventavis) lorazepam 0.5 mg tablet 0.5 mg PO QHS PRN 04/06/19 12/08/21 acetaminophen 500 mg tablet 500 mg PO Q6H PRN pain #90 tabs 01/30/20 12/08/21 (Tylenol Extra Strength) Dynamic Ankle Foot Orthosis #1 ea 07/29/20 09/15/21 fluticasone fur. 100 mcg-umeclid 1 inh inhalation .every other day 03/09/21 12/08/21 62.5 mcg-vilant 25 mcg inhalat.powder (Trelegy Ellipta) budesonide 160 mcg-glycopyr 9 2 inh inhalation BID #10.7 grams 07/27/21 12/08/21 mcg-formot 4.8 mcg/actuation HFA inhaler (Breztri Aerosphere) cephalexin 500 mg capsule 500 mg PO Q8H #28 caps 12/08/21 escitalopram oxalate 10 mg tablet 10 mg PO DAILY 12/08/21 12/08/21 Previous Rx's Medication Instructions Recorded acetaminophen 500 mg tablet 500 mg PO Q6H PRN pain #90 tabs 01/30/20 (Tylenol Extra Strength) Dynamic Ankle Foot Orthosis #1 ea 07/29/20 budesonide 160 mcg-glycopyr 9 2 inh inhalation BID #10.7 grams 07/27/21 mcg-formot 4.8 mcg/actuation HFA inhaler (Breztri Aerosphere) cephalexin 500 mg capsule 500 mg PO Q8H #28 caps 12/08/21 Allergies Allergy/AdvReac Type Severity Reaction Status Date / Time No Known Allergies Allergy Verified 12/08/21 22:00 cats Allergy Uncoded 12/08/21 22:00 Review of Systems Narrative: 08/22 Review of Systems completed and is negative except as stated above in HPI (Systems reviewed: Const, Resp, CV, GI, Neuro) PFSH All Active Problems (Updated 12/08/21 @ 22:32 by Aidan Fields MD) Bursal abscess (Acute) Insomnia (Acute) 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) Carpal tunnel syndrome of right wrist (Acute) Neuropathic pain (Acute) Lumbar radiculopathy (Acute) Peripheral neuropathy (Acute) Right foot drop (Acute) Right peroneal nerve palsy (Acute) Unilateral primary osteoarthritis, left knee (Acute) Steroid injection: 04/09/2019 Durolane injection: 01/15/21;07/07/20; 11/01/2019; 05/11/2019 Osteoarthritis of right knee (Acute) Durolane injection: 08/16/2019, 02/21/2020; 09/01/20; 03/09/21; 09/14/21 Asthma (Chronic) Medical History Aortic valve stenosis, nonrheumatic 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 Surgical History History of colonoscopy Status post heart valve replacement (01/10/14) History of aortic stenosis Ascending aorta aneurysm Status post total hip replacement, right Family History Paternal Grandmother Diabetes Father Heart disease Malignant tumor of stomach Social History Smoking/Tobacco Use Status: Former Tobacco Use Quit Date: 04/11/07 Pack-years: 44 Smoking risk assessment performed?: Yes Alcohol Intake: current Alcohol Intake frequency: a few times a month Alcohol type: wine Drug use: Socially Household members: other Details: ex Housing: apartment Number of Children: 3 number of grandchildren: 9 Pets and animals: No Current gender identity: male What is your relationship status?: Panel score (0-1 are the most socially isolated patients): 0 Seatbelt use: always Exam Narrative Exam Narrative: Const: WDWN elderly male in NAD. HEENT: NC/AT. Normal facial exam. Eyes: Normal conjunctiva and sclera. Neck: Supple. Trachea midline. Lungs: Normal respiratory effort. Cor: RRR. Good distal pulses. Neuro: A+O x 3. Normal speech, mentation. Cranial nerves II - XII grossly intact. No gross motor or sensory deficit. Ext: No C/C. Edema present right distal LE. Right knee with decrease ROM but still decent flexion. Swelling and erythema anteriorly. Skin: Warm and dry with erythema anterior right knee. Procedures Bursa Procedures Time Out Performed: Yes Side of body: right Site of Procedure: prepatellar bursa XRAY Obtained: none Antisepsis Used: Povidone-Iodine1% Local Anesthetic: other anesthetic (spray) Fluid obtained (mL): 4 Fluid Type: purulent Patient Tolerated Procedure: well Complications: none
[2021-12-08] MEDS: Cephalexin 500 MG CAP, 2 CAPS/BTL PO (22:34)
--- NOTE | 2021-12-10 20:55 | W.ED.FU ---
Follow Up Plan: Fluid culture from aspiration of prepatellar bursa grew group G Streptococcus. Patient placed on Keflex on ED visit. Orthopedics notified and no additional recommendations.
== END 2021-12-08 22:41 | disposition home or self-care (01) ==
PROVIDERS: Emergency Provider Emergency Medicine; PCP Physician Assistant Medical
DX: M71.061 Abscess of bursa, right knee (principal); B95.4 Other streptococcus as the cause of diseases classified elsewhere; J44.9 Chronic obstructive pulmonary disease, unspecified; Z87.891 Personal history of nicotine dependence; Z79.51 Long term (current) use of inhaled steroids
CPT/HCPCS: 20610; 87077; 99283; 87070; 87205; 99284

== ENCOUNTER → 2021-12-10 09:49 | Outpatient (BNVA) | payer MEDICARE, BC, SELFPAY | PROVIDERS: PCP Physician Assistant Medical; Referring Provider Physician Assistant Medical; Visit Provider Student in an Organized Health Care Education/Training Program | DX: M71.161 Other infective bursitis, right knee (principal) | CPT/HCPCS: 99213 ==

== ENCOUNTER → 2022-04-23 10:18 | Outpatient (BNVA) | payer MEDICARE, BC, SELFPAY | PROVIDERS: PCP Physician Assistant Medical; Referring Provider Physician Assistant Medical; Visit Provider Student in an Organized Health Care Education/Training Program | DX: M17.11 Unilateral primary osteoarthritis, right knee (principal); M17.12 Unilateral primary osteoarthritis, left knee; M75.81 Other shoulder lesions, right shoulder; M75.82 Other shoulder lesions, left shoulder | CPT/HCPCS: 20610; J7318 ==

== ENCOUNTER → 2022-06-01 10:58 | Outpatient (BNVA) | payer MEDICARE, BC, SELFPAY | PROVIDERS: PCP Physician Assistant Medical; Referring Provider Physician Assistant Medical; Visit Provider Surgery ==

== ENCOUNTER 2022-06-01 14:17 | Outpatient (CLI) | payer MEDICARE, BC, SELFPAY ==
[2022-06-01 12:29] LABS: Abs Immature Grans 0.01 10^3/uL (0.0-0.06); Absolute Basophil Count 0.05 10^3/uL (0.0-0.2); Absolute Eosinophil Count 0.11 10^3/uL (0.0-0.7); Absolute Lymphocyte Count 1.74 10^3/uL (1.2-3.4); Absolute Monocyte Count 0.53 10^3/uL (0.1-0.8); Absolute Neutrophil Count 3.74 10^3/uL (1.2-6.7); Basophils % 0.8; Eosinophils % 1.8; HCT 42.4 % (40.0-50.0); HGB 14.2 g/dL (13.5-17.5); Immature Grans % 0.2; Lymphocytes % 28.2; MCH 30.7 pg (27.0-33.0); MCHC 33.5 % (32.0-36.0); MCV 92 fL (80-95); MPV 11.1 fL (8.0-11.0); Monocytes % 8.6; Neutrophils % 60.4; Platelet Count 232 10^3/uL (130-400); RBC 4.63 10^6/uL (4.36-5.78); RDW 13.3 % (11.8-14.1); RDW-SD 44.8 fL; WBC 6.18 10^3/uL (4.4-10.8)
[2022-06-01 13:16] LABS: Iron 149 ug/dL (65-175); Total Iron Binding Capacity 282 ug/dL (250-450); Transferrin Sat 53 % (20-55)
[2022-06-01 13:39] LABS: ALT 23 U/L (16-63); AST 29 U/L (15-37); Albumin 3.7 g/dL (3.4-5.0); Alkaline Phosphatase 96 U/L (46-116); Anion Gap 6.7 mmol/L (3-11); BUN 13 mg/dL (7-18); Bilirubin, Total 0.6 mg/dL (0.2-1.0); CO2 29.3 mmol/L (21.0-32.0); CREATININE 0.9 mg/dL (0.70-1.30); Calcium 9.3 mg/dL (8.5-10.1); Chloride 100 mmol/L (98-107); Estimated GFR 87.96 (mL/min/1.73m2); Ferritin 69 ng/mL (26-388); Folate > 20.0 ng/mL (8.6-20.0); Glucose 94 mg/dL (74-106); Potassium 4.6 mmol/L (3.5-5.1); Sodium 136 mmol/L (136-145); Total Protein 7.1 g/dL (6.4-8.2); Vitamin B12 1044 pg/mL (193-986)
[2022-06-01 13:47] LABS: C-Reactive Protein 0.09 mg/dL (0.0-0.3)
== END 2022-06-01 14:18 | disposition home or self-care (01) ==
LOC: LBO 14:19
PROVIDERS: PCP Physician Assistant Medical; Visit Provider Surgery
DX: D64.9 Anemia, unspecified (principal); I35.0 Nonrheumatic aortic (valve) stenosis; I63.40 Cerebral infarction due to embolism of unspecified cerebral artery; J44.9 Chronic obstructive pulmonary disease, unspecified; Z87.891 Personal history of nicotine dependence; Z95.4 Presence of other heart-valve replacement; Z98.890 Other specified postprocedural states; K42.9 Umbilical hernia without obstruction or gangrene
CPT/HCPCS: 36415; 80053; 99213; 82607; 82728; 82746; 83540; 83550; 85025; 86140

== ENCOUNTER 2022-08-17 01:27 | Outpatient (CLI) | payer MEDICARE, BC, SELFPAY ==
--- NOTE | 2022-08-17 10:37 | DI.US_ITS ---
APPROVED REPORT EXAM: Comprehensive 2D, Doppler, and color-flow Echocardiogram Patient Location: Out-Patient Student Financial Aid Manager: Jose De Jesus Rush RDMS, [place] Indications: H/X of aortic valve replacement, Bioprosthetic , ascending aorta dilation Other Information Study Quality: Adequate Conclusion Normal left ventricular wall thickness and chamber size. Ejection fraction is 55%. Wall motion is n ormal Normal right ventricular size and systolic function Both atria are normal in size There is a bioprosthetic aortic valve replacement. Mean gradient is 10 mmHg. There is no aortic reg urgitation Normal mitral valve with moderate regurgitation Normal tricuspid valve with mild regurgitation Wall motion Left Ventricle The left ventricle is normal size. The left ventricular systolic function is normal. The left ventric ular ejection fraction is within the normal range. There is normal left ventricular wall thickness. T here is normal LV segmental wall motion. There is no ventricular septal defect visualized. LVEF is 55 -60%. Right Ventricle The right ventricle is normal size. Right ventricular systolic function is grossly normal. Atria The left atrium size is normal. The right atrium size is normal. The interatrial septum is intact wit h no evidence for an atrial septal defect. Aortic Valve Aortic valve is trileaflet. No aortic regurgitation is present. Bioprosthetic aortic valve is presen t. Mitral Valve The mitral valve is normal in structure. No evidence of mitral valve stenosis. Moderate mitral regur gitation. Tricuspid Valve The tricuspid valve is normal in structure. There is no tricuspid valve stenosis. Mild tricuspid reg urgitation. Pulmonic Valve The pulmonary valve is normal in structure. There is no pulmonic valvular stenosis. There is no pulmo bev valvular regurgitation. Great Vessels The aortic root is normal in size. Aortic arch is not well visualized. Ascending aorta is not well vi sualized. IVC is normal in size and collapses >50% with inspiration. Pericardium There is no pericardial effusion. 2D Dimensions IVSD d PLAX 0.70 cm M: 0.6-1.2 LV Vol A2C d MOD 140.2 mL LVPW d PLAX 0.78 cm M: 0.6 - 1.2 LV Vol A4C d MOD 133.1 mL LVID d PLAX 4.97 cm M: 4.2 - 5.8 LA vol/ BSA A2C s A-L 49.4 mL/m2 LVDs 3.55 cm M: 2.5 - 4.0 LA vol/ BSA A4C s A-L 33.3 mL/m2 Ao Root d 2.81 cm M: 3.1 - 3.7 LA Vol/ BSA Biplane s A-L 43.8 mL/m2 LV EF Teichholz 53.5 % LA Area A4C s MOD 20.94 cm2 LVEF (Shaw's) 55.82 % M: 52 - 72 LA Area A2C s MOD 27.56 cm2 LV Volume 103.59 mL M: 62 - 150 LV EF A4C MOD 54.8 % LV Volume Index 50.04 mL/m2 M: 34 - 74 LV EF A2C MOD 54.9 % LV Vol Biplane MOD 139.6 mL LV EF Biplane MOD 55.8 % FS 27.65 % SV 77.91 mL SV Index 37.72 mL/m2 M-Mode TAPSE 2.54 cm (M/F) >1.7 LV Diastology MV E' medial 0.104 (>0.07 m/s) E/A Ratio 1.6 LV E/e MED 8.30 (<14) MV E Vmax 0.86 (0.4-1.3 m/s) MV E' lateral 0.126 (>0.1 m/s) MV A Vmax 0.55 (0.4-1.3 m/s) LV E/e LAT 6.85 (<14) MV E/A Ratio 1.53 MV E/E' medial 8.31 MV E/E' lateral 6.86 Aortic Valve LVOT Area 4.27 cm2 AoV Area Vmax 2.26 cm2 LVOT Vmax 0.93 m/s AoV Area/ BSA (Vmax) 1.09 cm2/m2 LVOT Mean Wisam. 0.68 m/s DEJA Mean Wisam. 2.33 cm2 LVOT Peak Grad 3.5 mmHg DEJA Mean Wisam. Index 1.13 cm2/m2 LVOT Mean Grad 2.2 mmHg LVOT VTI 0.257 m LVOT Diam s 2.30 cm AoV Vmax 2.12 m/s Velocity Ratio 0.44 AoV Mean Wisam. 1.48 m/s AoV Peak Grad 18.5 mmHg LVOT SV 124.24 mL AoV Mean Grad 10.0 mmHg AoV VTI 0.533 m AoV Area VTI 2.33 cm2 AoV Area/ BSA (VTI) 1.13 cm/m2 Mitral Valve MV DT 213 (160-240 msec) MR PISA Radius 0.58 cm MV PHT 62 msec MR Aliasing Velocity 0.35 m/s MV Area PHT 3.55 cm2 MR PISA 2.14 cm2 MV VTI 0.312 m MV Area VTI 3.98 (4.0-6.0 cm2) Pulmonary Valve PV Vmax 1.02 (0.5-1.5 m/s) RVOT Peak Gr. 0.49 mmHg PV Peak Grad 4.1 mmHg RVOT Mean Gr. 0.30 mmHg PV Mean Grad 2.1 mmHg RVOT VTI 0.093 m PV VTI 0.188 m RVOT Vmax 0.35 m/s Tricuspid Valve TR Peak Grad 25.8 mmHg TR Vmax 2.54 m/s RA Pressure 3.00 mmHg RVSP (TR) 28.9 mmHg
== END 2022-08-17 01:47 ==
LOC: DI 01:27
PROVIDERS: PCP Physician Assistant Medical; Visit Provider Surgery
DX: I35.0 Nonrheumatic aortic (valve) stenosis (principal); I63.40 Cerebral infarction due to embolism of unspecified cerebral artery; J44.9 Chronic obstructive pulmonary disease, unspecified; Z87.891 Personal history of nicotine dependence; Z95.4 Presence of other heart-valve replacement; Z98.890 Other specified postprocedural states
CPT/HCPCS: 93306

== ENCOUNTER 2022-09-23 13:57 | Outpatient (CLI) | payer MEDICARE, BC, SELFPAY ==
--- NOTE | 2022-09-23 13:45 | RT.EKG_ITS ---
APPROVED REPORT Exam: Resting ECG Reason for Exam: aortic valve stenosis Patient Location: O HR:60 bpm ECG Measurements Heart Rate 60 AXIS WY 195 P 43 QRSd 98 QRS 56 QT 429 T 61 QTc 429 Conclusion Sinus rhythm...normal P axis, V-rate 50- 99 Borderline low voltage, extremity leads...all extremity leads <0.6mV
== END 2022-09-23 13:58 | disposition home or self-care (01) ==
LOC: DI.CARD 13:59
PROVIDERS: PCP Physician Assistant Medical; Referring Provider Physician Assistant Medical; Visit Provider Internal Medicine Cardiovascular Disease
DX: I35.0 Nonrheumatic aortic (valve) stenosis (principal)
CPT/HCPCS: 93010

== ENCOUNTER → 2022-09-23 13:57 | Outpatient (BNVA) | payer MEDICARE, BC, SELFPAY | PROVIDERS: PCP Physician Assistant Medical; Referring Provider Physician Assistant Medical; Visit Provider Internal Medicine Cardiovascular Disease | DX: R06.09 Other forms of dyspnea (principal); J44.9 Chronic obstructive pulmonary disease, unspecified; Z95.4 Presence of other heart-valve replacement | CPT/HCPCS: 93005; 99203; 99213 ==

== ENCOUNTER → 2022-10-22 10:06 | Outpatient (BNVA) | payer MEDICARE, BC, SELFPAY | PROVIDERS: PCP Physician Assistant Medical; Visit Provider Student in an Organized Health Care Education/Training Program | DX: M17.11 Unilateral primary osteoarthritis, right knee (principal); M17.12 Unilateral primary osteoarthritis, left knee | CPT/HCPCS: 20610; J7318 ==

== ENCOUNTER 2023-01-13 11:16 | Outpatient (CLI) | payer MEDICARE, BC, SELFPAY ==
--- NOTE | 2023-01-13 11:00 | DI.RAD_ITS ---
Exam(s) XR KNEE LT 4V AP,LAT,DOE,PAT EXAM: XR KNEE LT 4V AP,LAT,DOE,PAT CLINICAL HISTORY: L knee pain/OA. TECHNIQUE: 2D digital imaging was performed. COMPARISON: CR,DX XR KNEE 3V LT from 02/22/2019 FINDINGS: Four views. There is no evidence fracture. Moderate size joint effusion noted. There is [id number] narrowing of the medial compartment as seen on the weight-bearing view. Also marginal osteophytes off the medi al compartment. There is maintained height of the lateral compartment as well as the patellofemoral compartment. Unchanged bony excrescence seen off the anterior tibial plateau IMPRESSION: Advanced degenerative narrowing of the medial compartment of the left knee. DATA REPOSITORY: RADIATION DOSE DELIVERED:
--- NOTE | 2023-01-13 11:00 | DI.RAD_ITS ---
Exam(s) XR KNEE RT 4V AP,LAT,DOE,PAT EXAM: XR KNEE RT 4V AP,LAT,DOE,PAT CLINICAL HISTORY: R knee pain/ OA. TECHNIQUE: 2D digital imaging was performed. COMPARISON: CR XR KNEE LT 4V AP,LAT,DOE,PAT from 01/13/2023 FINDINGS: Four views. No evidence of fracture but there does appear to be moderate size joint effusion. There is advanced narrowing of the medial compartment of the right knee, similar to the opposite-left side. Small marginal osteophytes also evident off the medial compartment. The lateral compartment exhibits normal height as does the patellofemoral compartment. Bone density normal. No osseous lesi ons. IMPRESSION: Advanced degenerative narrowing of the medial compartment of the right knee, similar to the opposite side. Small joint effusion noted. DATA REPOSITORY: RADIATION DOSE DELIVERED:
== END 2023-01-13 11:17 | disposition home or self-care (01) ==
LOC: DIORS 11:16
PROVIDERS: PCP Physician Assistant Medical; Referring Provider Physician Assistant Medical; Visit Provider Student in an Organized Health Care Education/Training Program
DX: M17.12 Unilateral primary osteoarthritis, left knee (principal); M17.11 Unilateral primary osteoarthritis, right knee
CPT/HCPCS: 20610; 73564; J1040

== ENCOUNTER → 2023-03-07 10:59 | Outpatient (BNVA) | payer MEDICARE, BC, SELFPAY | PROVIDERS: PCP Physician Assistant Medical; Referring Provider Physician Assistant Medical; Visit Provider Surgery | DX: K46.9 Unspecified abdominal hernia without obstruction or gangrene (principal); K42.9 Umbilical hernia without obstruction or gangrene; I35.0 Nonrheumatic aortic (valve) stenosis; I63.40 Cerebral infarction due to embolism of unspecified cerebral artery; Z87.891 Personal history of nicotine dependence | CPT/HCPCS: 99214 ==

== ENCOUNTER → 2023-04-01 10:28 | Outpatient (BNVA) | payer MEDICARE, BC, SELFPAY | PROVIDERS: PCP Physician Assistant Medical; Referring Provider Physician Assistant Medical; Visit Provider Student in an Organized Health Care Education/Training Program | DX: J44.9 Chronic obstructive pulmonary disease, unspecified (principal) | CPT/HCPCS: 99214 ==

== ENCOUNTER 2023-04-19 07:18 | Day surgery (SDC) | payer MEDICARE, BC, SELFPAY ==
--- NOTE | 2023-04-18 20:01 | W.PM.HP.N ---
Date of service: 04/19/23 Time of Service: 08:39 Assessment and Plan Assessment and plan (1) Hearing loss: Status: Acute (2) Enlarged prostate: Status: Acute (3) Common peroneal neuropathy: Status: Acute (4) Umbilical hernia: Status: Acute Assessment and plan: I discussed the nature of umbilical hernias with the pt and how they form, and consequences of incarceration.? We discussed the warning signs of incarcerations (Severe pain/hardness and inability to reduce the hernia/vomiting/redness and fever) ?and when/how to seek medical attention (our office/PCP or ED).? ?I discussed the surgery in detail and the complications related to the surgery and the anesthesia.? I do recommend that the pt have a nerve block for postop pain control.? We also discussed multi-modality pain management.? Pt. expressed understanding; all questions were answered to the patient satisfaction and they do wish to proceed with surgery.? Patient was given an educational booklet & and a copy of the postop instructions and expressed understanding of how to care for themselves after surgery. Risks of the surgery include but are not limited to: Bleeding/infection/pneumonia/damage to blood vessels or bladder or?bowels/blood clots or PE/chronic pain/urinary retention/chronic numbness/reoccurrence/reaction to mesh requiring removal/complications of anesthesia.?We also discussed the possibility of postop urinary retention or bruising. ?The pt will have a pre-Op PE to ensure fitness for anesthesia, and preOp cardiac testing as deemed necessary. ?The procedure will be done with abx and under sterile conditions. This is an outpt day surgery.? ??The pt requires a ride home from surgery and someone to stay with the pt for 24 hrs after anesthesia.? No lifting over 5 pounds for 2-3 weeks after surgery.? Also take Miralax postop to avoid constipation. (5) COPD (chronic obstructive pulmonary disease): Status: Chronic (6) Peripheral neuropathy: Status: Acute (7) Lumbar radiculopathy: Status: Acute (8) History of cardioversion: (9) Degenerative lumbar spinal stenosis: (10) Former smoker: History of Present Illness Narrative: Patient is here today for umbilical hernia repair. They not having any chest pain or shortness of breath, currently.? They are not experiencing any fever or chills.? They deny any productive cough or upper respiratory tract infection signs or symptoms.? They are not having abdominal pain, or nausea and vomiting.? They have not had any changes in medications, past medical history or past surgical history since previously being seen in the office. They have not had any accidents or have been in the ER since the clinic pre-operative evaluation. ??I reviewed the procedure with the patient today, including risks and benefits of the procedure, and what they could expect at home for recovery.? All questions are answered to the patient?s satisfaction today, and they are stable to proceed with the proposed procedure. He is being evaluated by [facility] for his seizure disorder. He is currently on Keppra. They are doing some provocative testing for him. He has not had a seizure outside in the hospital and is actively maintained on Keppra at this time. All questions answered to his satisfaction. The case was reviewed with anesthesia today as well. -see consults from pulm/cards From clinic note 03/07/2023: Pt here to d/w umbilical hernia repair. He is not having any pain today. He has not had any obstructive signs and symptoms in the past. Riccardo does have do strenuous activities that will bother him and he would like it repaired. No prior surgery or repairs to the umbilical hernia. No problems w/ anesthesia in the past. No blood thinners. No diabetes mellitus. He no longer smokes. see echo and cardiology and pulmonary consult consults in [facility]. Notes from pulmonary reviewed and appreciated. Patient is doing well and feels that his respiratory status is under better control. I think at this point we have his medically optimized and he should do well with surgery. He will need to do endocarditis prophylaxis as well. Review of Systems All systems reviewed & are unremarkable except as noted in HPI and below PFSH All Active Problems Hearing loss (Acute) Enlarged prostate (Acute) Common peroneal neuropathy (Acute) Acute low back pain (Acute) Umbilical hernia (Acute) Tendinitis of left rotator cuff (Acute) Right rotator cuff tendinitis (Acute) COPD (chronic obstructive pulmonary disease) (Chronic) Septic prepatellar bursitis of right knee (Acute) Insomnia (Acute) 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) Carpal tunnel syndrome of right wrist (Acute) Neuropathic pain (Acute) Lumbar radiculopathy (Acute) Peripheral neuropathy (Acute) Right foot drop (Acute) Right peroneal nerve palsy (Acute) Unilateral primary osteoarthritis, left knee (Acute) Steroid injection: 04/09/2019; 01/13/23 Durolane injection: 10/22/22; 04/23/22; 01/15/21;07/07/20; 11/01/2019; 05/11/2019 Osteoarthritis of right knee (Acute) Durolane injection: 08/16/2019, 02/21/2020; 09/01/20; 03/09/21; 09/14/21; 04/23/22; 10/22/22 Steroid: 01/13/23 Medical History Anemia Transient visual loss Injury of right peroneal nerve Former smoker Aortic valve stenosis, nonrheumatic History of cardioversion Hx Afib s/p heart valve surgery which required cardioversion. 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) Did not require intervention; occurred during heart surgery Surgical History H/O arthroscopy of hip Status post total hip replacement, right (~11/2020) History of colonoscopy Status post heart valve replacement (01/10/14) History of aortic stenosis Ascending aorta aneurysm Family History Paternal Grandmother Diabetes Father Heart disease Malignant tumor of stomach Social History Smoking/Tobacco Use Status: Former Tobacco Use Quit Date: 04/11/07 Pack-years: 44 Smoking risk assessment performed?: Yes Alcohol Intake: current Alcohol Intake frequency: a few times a month Alcohol type: wine Drug use: Never Substance use type: does not use Household members: other Details: ex Housing: apartment Number of Children: 3 number of grandchildren: 9 Pets and animals: No Current gender identity: male What is your relationship status?: Panel score (0-1 are the most socially isolated patients): 0 Seatbelt use: always Do you feel safe at home: Yes Do you feel safe in your relationship?: Yes Meds Allergies and Home Medications Allergies Allergy/AdvReac Type Severity Reaction Status Date / Time No Known Allergies Allergy Verified 04/19/23 07:39 cats Allergy Uncoded 04/19/23 07:39 Home Medications Medication Instructions Recorded Confirmed Type lorazepam 0.5 mg tablet 0.5 mg PO QHS PRN 04/06/19 04/19/23 History acetaminophen 500 mg tablet 500 mg PO Q6H PRN pain #90 tabs 01/30/20 04/19/23 Rx (Tylenol Extra Strength) Dynamic Ankle Foot Orthosis #1 ea 07/29/20 04/01/23 Rx escitalopram oxalate 10 mg tablet 10 mg PO DAILY 08/24/22 04/19/23 History mirabegron 50 mg tablet,extended 50 mg PO DAILY 08/24/22 04/19/23 History release 24 hr (Myrbetriq) fluticasone fur. 100 mcg-umeclid 1 inh inhalation .every other day 12/30/22 04/19/23 Rx 62.5 mcg-vilant 25 mcg #60 ea inhalat.powder (Trelegy Ellipta) ibuprofen 200 mg tablet 200 mg PO Q6H PRN 03/07/23 04/19/23 History ipratropium 0.5 mg-albuterol 3 mg 3 ml inhalation Q6H PRN 04/01/23 04/19/23 History (2.5 mg base)/3 mL nebulization soln levetiracetam 750 mg tablet 750 mg PO BID 04/18/23 04/19/23 History Exam Narrative Exam Narrative: PHYSICAL EXAM GENERAL APPEARANCE: Alert, healthy appearance, oriented, x 3,? in no acute distress HYDRATION: Well hydrated HEAD, EYES, EARS, NECK, THROAT: Head is normocephalic, pupils equal, round, reactive to light and accommodation, ocular movement intact, sclera clear and no jaundice. ?Dentition intact. LUNGS: normal respiration/normal chest excursion. ?Clear to auscultation bilaterally. ?No wheeze. ?HEART: Regular rate and rhythm. no murmurs ABDOMEN: soft and non-tender to palpation.? Normal bowel sounds.? Large 3 cm umbilical hernia. Site is marked. Soft and reducible. No skin infections. LE: No clubbing cyanosis or edema. Time Spent Time spent with Patient: 40-54 minutes Time was spent: preparing to see the patient(eg.review tests), obtaining and/or reviewing separately otained hiistory, ordering medications,tests, procedures, referring, communicating with other health aged or disabled carer, indepentently interpreting results, counseling the patient and care coordination
--- NOTE | 2023-04-18 20:23 | W.PM.DSUDISC ---
Date of service: 04/19/23 Time of Service: 10:32 Discharge Plan Disposition Patient Disposition: Home Condition: Good Discharge Details Reason For Visit: Umbilical hernia repair Attending Provider: Renetta Fatima Primary Care Provider: Destiny Lucas Home Meds and New Rx's Prescriptions: New tramadol 50 mg tablet 50 mg PO Q6H PRNQty: 14 0RF Continued acetaminophen [Tylenol Extra Strength] 500 mg tablet 500 mg PO Q6H PRN (Reason: pain) Qty: 90 0RF Myrbetriq 50 mg tablet extended release 24 hr 50 mg PO DAILY escitalopram oxalate 10 mg tablet 10 mg PO DAILY lorazepam 0.5 mg tablet 0.5 mg PO QHS PRN (DME) Dynamic Ankle Foot Orthosis See Rx Instructions .ROUTE .MEDSUPPLY Qty: 1 0RF Rx Instructions: Please fit for a dynamic ankle-foot orthosis to accommodate Mr. Corea's peroneal nerve palsy with foot drop. ipratropium-albuterol 0.5 mg-3 mg(2.5 mg base)/3 mL solution for nebulization 3 ml inhalation Q6H PRN ibuprofen 200 mg tablet 200 mg PO Q6H PRN Trelegy Ellipta 100-62.5-25 mcg blister with device 1 inh IH .every other day Qty: 60 3RF levetiracetam 750 mg tablet 750 mg PO BID Patient Comments: TAKE ONE TABLET BY MOUTH TWICE A DAY Discharge Instructions Additional Instructions: Dr. Fatima HERNIA REPAIR ? POSTOPERATIVE INSTRUCTIONS Patients who have this type of surgery can usually be expected to return to work within two weeks and have minimal amounts of discomfort. ? ACTIVITY: The day of surgery should be spent resting. However, you can be up for short periods of time, I.E., going to the bathroom or kitchen. Avoid lifting or straining. On the day following surgery, you can be up and about as desired. ? LIFTING: Restrict your lifting to no more than five (5) pounds for two weeks after surgery. ??We will decide when you are done with restrictions and when you can return to work, at your follow-up appointment.? No sexual activity for two weeks.? ? DIET: There are no dietary restrictions following surgery. However, you may want to start with small amounts of liquids to avoid nausea the day of surgery. ? INCISION CARE: You will notice purple skin glue closing the incision.? Do not peel this off- it will wear off on its own.? After 24 hours you may shower. The dressing may be replaced for comfort, but is not necessary. ?An ice bag may be applied to the incision for 72 hours following surgery. ? SIGNS OF INFECTION: It is not unusual to have some black and blue discoloration of the skin around the incision.? ?It will slowly disappear. If you have any increased redness, drainage, fever (above 100 degrees), please contact your doctor for an examination. ? DISCOMFORT: You may expect to have some mild discomfort at the incision sight. If severe pain develops you should contact your doctor for further instructions. ? URINATION: Patients who have surgery occasionally have problems urinating. If you experience problems and are not able to urinate within 6 hours following your surgery, please call your doctor immediately or go to your nearest Emergency Room for evaluation. ? DRIVING: NO driving for three (3) days after surgery, or if you are still taking narcotic pain medication.? ? MEDICATIONS: Alternate Tylenol 1000mg by mouth every 8 hours and Ibuprofen 600mg every 6 hours. ?Make sure you take ibuprofen with food and not on an empty stomach. ?Take the Tylenol and ibuprofen continuously for the first 72hrs- not just when you have pain.? Use the tramadol for breakthrough pain/pain >7.? Use ICE!?? Twenty minutes on, and then off, continuously for the first 72hours. If you are taking narcotic pain medication, follow the instructions on the label and do not drive. Pain medications can make you very constipated. Make sure you are moving your bowels daily. If not, take Miralax or Milk of Magnesia.?? Anesthesia makes you very constipated.? Take a dose of milk of magnesia the morning after surgery. ? REPORT: Unusual swelling, severe pain, unresolved nausea, signs of infection, or difficulty in urination to your surgeon. Follow up in clinic with Dr. Fatima in 2 weeks.? [phone] Stand Alone Forms: Anesthesia Discharge Inst., Nerve Block Instructions, Shannon Reyes (DSU) Activity:: See above Remove Dressings/Wound Care:: 24 hours Shower/Bathe:: 24 hours Diet:: Low Sodium Discharge Orders Discharge Orders: Discharge Order (Routine); Ordered 04/18/23 Ordered By: Renetta Fatima DS: Diagnosis Discharge Diagnosis (1) Hearing loss: Status: Acute (2) Enlarged prostate: Status: Acute (3) Common peroneal neuropathy: Status: Acute (4) Umbilical hernia: Status: Acute Asessment and Plan: The patient is doing well post-op from their open umbilical hernia surgery.? They are having no nausea or vomiting. They are tolerating liquids and a snack. The pt is not having any chest pain or SOB.? Their pain is adequately controlled. They have been able to urinate.? ?HEENT:? no eye pain/drainage/redness/swelling. Mild sore throat ?Cardio- NSR, no chest pain, BP stable- see VS record ?Pulm: no sob or productive cough. No hemoptysis ?Incision- dressing is c/d/i w/ no excessive bleeding or drainage ?I discussed with the patient the findings at the time of surgery and the patient?s progress. ?We reviewed expectations at home; what the patient could expect for recovery time, and in the post-operative period.? We discussed the importance of walking to avoid blood clots and pneumonia.? We discussed and reviewed the patient's post-operative wound care and dressing needs.?? We reviewed their step-mazariegos pain management plan, Rx called to the pharmacy of their choice.? We reviewed activity and limitations-see discharge instructions. We reviewed warning signs, and when to seek medical attention- see d/c instructions.?? Patient was given a postoperative follow-up appointment. Patient verbalized understanding of their postoperative instructions, how do to take care of themselves and their incision, and the pain management plan. Please see discharge instructions.? (5) COPD (chronic obstructive pulmonary disease): Status: Chronic (6) Peripheral neuropathy: Status: Acute (7) Lumbar radiculopathy: Status: Acute (8) History of cardioversion: (9) Degenerative lumbar spinal stenosis: (10) Former smoker:
[2023-04-19] VITALS (9 sets, daily range): BP systolic 131–156; BP diastolic 67–79; PULSE 54–67; RESP 14–18; TEMP 36.3–36.5; O2SAT 95–97; BMI 30.8
--- NOTE | 2023-04-19 06:30 | W.ANESPRE ---
General Info Date of Service Date Performed: 04/19/23 Height: 5 ft 8.9 in Weight: 94.4 kg Body Mass Index (BMI): 30.8 Surgical Procedure: Operation Date: 04/19/23 08:40 Proposed Procedure Side Surgeon p Herniorrhaphy Umbilical w/Mesh Renetta Fatima, Meds Allergies and Home Medications Allergies Allergy/AdvReac Type Severity Reaction Status Date / Time No Known Allergies Allergy Verified 04/19/23 07:39 cats Allergy Uncoded 04/19/23 07:39 Home Medication Medication Instructions Recorded lorazepam 0.5 mg tablet 0.5 mg PO QHS PRN 04/06/19 acetaminophen 500 mg tablet 500 mg PO Q6H PRN pain #90 tabs 01/30/20 (Tylenol Extra Strength) Dynamic Ankle Foot Orthosis #1 ea 07/29/20 escitalopram oxalate 10 mg tablet 10 mg PO DAILY 08/24/22 mirabegron 50 mg tablet,extended 50 mg PO DAILY 08/24/22 release 24 hr (Myrbetriq) fluticasone fur. 100 mcg-umeclid 1 inh inhalation .every other day 12/30/22 62.5 mcg-vilant 25 mcg #60 ea inhalat.powder (Trelegy Ellipta) ibuprofen 200 mg tablet 200 mg PO Q6H PRN 03/07/23 ipratropium 0.5 mg-albuterol 3 mg 3 ml inhalation Q6H PRN 04/01/23 (2.5 mg base)/3 mL nebulization soln levetiracetam 750 mg tablet 750 mg PO BID 04/18/23 Current Visit Medications: Current Medications Generic Name Dose Route Start Last Admin Trade Name Freq PRN Reason Stop Dose Admin Acetaminophen 1,000 mg 04/19/23 06:00 Acetaminophen 500 Mg Tab PO 04/19/23 16:00 PREOP ROBERT Gabapentin 600 mg 04/19/23 06:00 Gabapentin 300 Mg Cap PO 04/19/23 16:00 PREOP ROBERT Ringer's Solution 1,000 mls @ 80 mls/hr 04/19/23 06:00 IV 05/18/23 23:59 INFUSION ROBERT Cefazolin Sodium/Dextrose 2 gm in 50 mls @ 100 mls/hr 04/19/23 06:00 Ancef Duplex IVPB 04/19/23 16:00 PREOP ROBERT Ondansetron HCl 4 mg/ Sodium 52 mls @ 200 mls/hr 04/18/23 20:31 Chloride IVPB 05/18/23 20:30 Q6H PRN PRN IV Miscellaneous Supplies 1 each 04/19/23 06:00 Iv Access IV 05/18/23 23:59 DIRECTED ROBERT Morphine Sulfate 2 mg 04/18/23 20:31 Morphine 4 Mg/Ml Syr IVP 05/18/23 20:30 Q1H PRN PRN Sodium Chloride 0 ml 04/19/23 06:00 Normal Saline Flush 10 Ml Syr IV 05/18/23 23:59 PRN PRN Sodium Chloride 0 ml 04/19/23 06:00 Normal Saline 10 Ml Vial IJ 05/18/23 23:59 DIRECTED PRN Sterile Water 0 ml 04/19/23 06:00 Water,Injection,Sterile 10 Ml Vial IJ 05/18/23 23:59 DIRECTED PRN Tramadol HCl 50 mg 04/18/23 20:31 Tramadol 50 Mg Tab PO 05/18/23 20:30 Q6H PRN PRN Pain PFSH Active Problems Active Problems: Problem Status Onset Code Hearing loss H91.90 Enlarged prostate N40.0 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 Acute low back pain M54.50 Umbilical hernia K42.9 Tendinitis of left rotator cuff M75.82 Right rotator cuff tendinitis M75.81 COPD (chronic obstructive pulmonary disease) J44.9 Septic prepatellar bursitis of right knee M71.161 Insomnia G47.00 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) Did not require intervention; occurred during heart surgery Surgical History Surgical History H/O arthroscopy of hip Status post total hip replacement, right (~11/2020) History of colonoscopy Status post heart valve replacement (01/10/14) History of aortic stenosis Ascending aorta aneurysm Tobacco Smoking/Tobacco Use Status: Former Tobacco Use Alcohol Alcohol Intake: current Alcohol intake frequency: a few times a month Alcohol type: wine Substance Use Substance use: Never Substance use type: does not use Vital Signs and Lab Results Lab Results Blood Type / Crossmatch: No Data to Display Complete Blood Count: No Data to Display Complete Metabolic Panel: No Data to Display Liver Function Panel: No Data to Display Coagulation Panel: No Data to Display Cardiac Panel: No Data to Display Arterial Blood Gas: No Data to Display Venous Blood Gas: No Data to Display Pancreas Panel: No Data to Display Thyroid Panel: No Data to Display Infectious Disease: No Data to Display Blood Cultures: No Data to Display Toxicology Panel: No Data to Display Imaging and Studies Imaging and Studies Study information below may be from another EMR and interpreted by another provider. Please see original notes in EMR for more complete details. EKG Summary: EKG PATIENT NAME: Riccardo Corea UNIT #: [id number] ORDERING PROVIDER: Kerrie Koroma M.D. PRIMARY CARE PROVIDER: DESTINY GOMEZ DATE/TIME OF SERVICE: 09/23/22 1314 : 1945 PERFORMING LOCATION: [facility] APPROVED REPORT Exam: Resting ECG Reason for Exam: aortic valve stenosis Patient Location: O HR:60 bpm ECG Measurements Heart Rate 60 AXIS WV 195 P 43 QRSd 98 QRS 56 QT 429 T61 QTc 429 Conclusion Sinus rhythm...normal P axis, V-rate 50- 99 Borderline low voltage, extremity leads...all extremity leads <0.6mV <Electronically signed by KERRIE KOROMA MD in OV> E-Sign Date: 09/23/22 E-Sign Time: 1427 Echocardiogram Summary: Patient Name: Riccardo oCrea Unit #: [id number] Loc: Ordering Provider: Renetta Fatima DO Status: REG CLI Primary Care Provider: Destiny Lucas Date of Exam: 08/17/22 Sex: M Admission Date: 08/17/22 : 1945 Age: 76 APPROVED REPORT EXAM: Comprehensive 2D, Doppler, and color-flow Echocardiogram Patient Location: Out-Patient Interlocking And Signal Mechanic: Jose De Jesus Rush RDMS, RVT Indications: H/X of aortic valve replacement, Bioprosthetic , ascending aorta dilation Other Information Study Quality: Adequate Conclusion Normal left ventricular wall thickness and chamber size. Ejection fraction is 55%. Wall motion is normal Normal right ventricular size and systolic function Both atria are normal in size There is a bioprosthetic aortic valve replacement. Mean gradient is 10 mmHg. There is no aortic regurgitation Normal mitral valve with moderate regurgitation Normal tricuspid valve with mild regurgitation Wall motion Left Ventricle The left ventricle is normal size. The left ventricular systolic function is normal. The left ventricular ejection fraction is within the normal range. There is normal left ventricular wall thickness. There is normal LV segmental wall motion. There is no ventricular septal defect visualized. LVEF is 55-60%. Right Ventricle The right ventricle is normal size. Right ventricular systolic function is grossly normal. Atria The left atrium size is normal. The right atrium size is normal. The interatrial septum is intact with no evidence for an atrial septal defect. Aortic Valve Aortic valve is trileaflet. No aortic regurgitation is present. Bioprosthetic aortic valve is present. Mitral Valve The mitral valve is normal in structure. No evidence of mitral valve stenosis. Moderate mitral regurgitation. Tricuspid Valve The tricuspid valve is normal in structure. There is no tricuspid valve stenosis. Mild tricuspid regurgitation. Pulmonic Valve The pulmonary valve is normal in structure. There is no pulmonic valvular stenosis. There is no pulmonic valvular regurgitation. Great Vessels The aortic root is normal in size. Aortic arch is not well visualized. Ascending aorta is not well visualized. IVC is normal in size and collapses >50% with inspiration. Pericardium There is no pericardial effusion. 2D Dimensions IVSD d PLAX 0.70 cm M: 0.6-1.2LV Vol A2C d MOD 140.2 mL LVPW d PLAX 0.78 cm M: 0.6 - 1.2LV Vol A4C d MOD 133.1 mL LVID d PLAX 4.97 cm M: 4.2 - 5.8LA vol/ BSA A2C s A-L49.4 mL/m2 LVDs 3.55 cm M: 2.5 - 4.0LA vol/ BSA A4C s A-L33.3 mL/m2 Ao Root d 2.81 cm M: 3.1 - 3.7LA Vol/ BSA Biplane s A-L 43.8 mL/m2 LV EF Teichholz 53.5 %LA Area A4C s MOD 20.94 cm2 LVEF (Shaw's)55.82 % M: 52 - 72LA Area A2C s MOD 27.56 cm2 LV Iwwcds205.59 mL M: 62 - 150LV EF A4C MOD 54.8 % LV Volume Index50.04 mL/m2 M: 34 - 74LV EF A2C MOD 54.9 % LV Vol Biplane MOD 139.6 mLLV EF Biplane MOD 55.8 % FS27.65 %SV77.91 mL SV Index37.72 mL/m2 M-Mode TAPSE 2.54 cm (M/F) >1.7 LV Diastology MV E' medial0.104 (>0.07 m/s)E/A Ratio 1.6 LV E/e MED8.30 (<14)MV E Vmax 0.86 (0.4-1.3 m/s) MV E' lateral0.126 (>0.1 m/s)MV A Vmax 0.55 (0.4-1.3 m/s) LV E/e LAT6.85 (<14)MV E/A Ratio 1.53 MV E/E' medial 8.31 MV E/E' lateral6.86 Aortic Valve LVOT Area4.27 cm2AoV Area Vmax2.26 cm2 LVOT Vmax 0.93 m/sAoV Area/ BSA (Vmax)1.09 cm2/m2 LVOT Mean Wisam.0.68 m/sAVA Mean Wisam.2.33 cm2 LVOT Peak Grad 3.5 mmHgAVA Mean Wisam. Index1.13 cm2/m2 LVOT Mean Grad 2.2 mmHg LVOT VTI0.257 m LVOT Diam s 2.30 cm AoV Vmax2.12 m/s Velocity Ratio 0.44 AoV Mean Wisam.1.48 m/s AoV Peak Grad18.5 mmHg LVOT SV 124.24 mL AoV Mean Grad10.0 mmHg AoV VTI0.533 m AoV Area VTI2.33 cm2 AoV Area/ BSA (VTI)1.13 cm/m2 Mitral Valve MV DT 213 (160-240 msec)MR PISA Radius 0.58 cm MV PHT62 msecMR Aliasing Velocity 0.35 m/s MV Area PHT 3.55 cm2MR PISA 2.14 cm2 MV VTI 0.312 m MV Area VTI 3.98 (4.0-6.0 cm2) Pulmonary Valve PV Vmax 1.02 (0.5-1.5 m/s)RVOT Peak Gr.0.49 mmHg PV Peak Grad 4.1 mmHgRVOT Mean Gr.0.30 mmHg PV Mean Grad 2.1 mmHgRVOT VTI0.093 m PV VTI 0.188 mRVOT Vmax 0.35 m/s Tricuspid Valve TR Peak Grad 25.8 mmHgTR Vmax 2.54 m/s RA Pressure 3.00 mmHg RVSP (TR) 28.9 mmHg Ordered By: Renetta Fatima DO CC: PATRICIA FRAGOSO MD Dictated By: Kerrie Koroma M.D. 08/17/22 1711 <Electronically signed by Kerrie Koroma M.D. in OV> 08/19/22 3446 Transcribed By: Kerrie Koroma MD This is privileged, confidential information intended only for the provider named. Any use or distribution by any person other than this provider is strictly prohibited. If you receive this report in error, please notify us immediately at [phone] and return the original report to us at the address above. Thank-you. Anesthesia Assessment and Plan Anesthesia History Personal History: No History of Anesthesia Complications Family History: No Family History of Anesthesia Complications Exercise Tolerance Exercise Tolerance: Metabolic Equivalents>4 Pertinent Negatives Pertinent Negatives: No Symptoms of GERD Cardiac & Pulmonary Exam Cardiac Exam: Normal S1/S2 Heart Sounds Pulmonary Exam: Clear Bilateral Breath Sounds Implantable Cardiac Device Does patient have a Pacemaker or an ICD?: No Airway Exam Known Difficult Airway: No Mallampati Class: 2 Mouth Opening: Narrow (< 3cm) Thyromental Distance: Less than 3 cm Neck Range of Motion: Limited ROM Neck Circumference: Normal Teeth Condition: Normal Dentition ASA Classification ASA Score: ASA 3 Emergency Case?: No NPO Status NPO Status: NPO Clears >2 hours, Solids >8 hours Anesthesia Plan Resuscitation Status: Full Code Anesthesia Technique: General Anesthesia Airway Planned: Endotracheal Tube Pain Management: Surgeon and patient request nerve block Monitors Used: Standard Monitors, SedLine and POCUS (For Bilateral rectus sheathe blocks)
[2023-04-19] MEDS: Gabapentin 300 MG CAP 600 MG PO (08:02)
[2023-04-19] MEDS: Acetaminophen 500 MG TAB 1000 MG PO (08:02)
[2023-04-19] MEDS: Lactated Ringers 1,000 ML 80 ML IV (08:08)
--- NOTE | 2023-04-19 08:41 | W.ANESPRE ---
General Info Height: 5 ft 8.9 in Weight: 94.4 kg Body Mass Index (BMI): 30.8 Surgical Procedure: Operation Date: 04/19/23 08:40 Proposed Procedure Side Surgeon p Herniorrhaphy Umbilical w/Mesh Renetta Fatima DO Meds Allergies and Home Medications Allergies Allergy/AdvReac Type Severity Reaction Status Date / Time No Known Allergies Allergy Verified 04/19/23 07:39 cats Allergy Uncoded 04/19/23 07:39 Home Medication Medication Instructions Recorded lorazepam 0.5 mg tablet 0.5 mg PO QHS PRN 04/06/19 acetaminophen 500 mg tablet 500 mg PO Q6H PRN pain #90 tabs 01/30/20 (Tylenol Extra Strength) Dynamic Ankle Foot Orthosis #1 ea 07/29/20 escitalopram oxalate 10 mg tablet 10 mg PO DAILY 08/24/22 mirabegron 50 mg tablet,extended 50 mg PO DAILY 08/24/22 release 24 hr (Myrbetriq) fluticasone fur. 100 mcg-umeclid 1 inh inhalation .every other day 12/30/22 62.5 mcg-vilant 25 mcg #60 ea inhalat.powder (Trelegy Ellipta) ibuprofen 200 mg tablet 200 mg PO Q6H PRN 03/07/23 ipratropium 0.5 mg-albuterol 3 mg 3 ml inhalation Q6H PRN 04/01/23 (2.5 mg base)/3 mL nebulization soln levetiracetam 750 mg tablet 750 mg PO BID 04/18/23 Current Visit Medications: Current Medications Generic Name Dose Route Start Last Admin Trade Name Sergey PRN Reason Stop Dose Admin Acetaminophen 1,000 mg 04/19/23 06:00 04/19/23 08:02 Acetaminophen 500 Mg Tab PO 04/19/23 16:00 1,000 mg PREOP ROBERT Administration Gabapentin 600 mg 04/19/23 06:00 04/19/23 08:02 Gabapentin 300 Mg Cap PO 04/19/23 16:00 600 mg PREOP ROBERT Administration Ringer's Solution 1,000 mls @ 80 mls/hr 04/19/23 06:00 04/19/23 08:08 IV 05/18/23 23:59 80 mls/hr INFUSION ROBERT Administration Cefazolin Sodium/Dextrose 2 gm in 50 mls @ 100 mls/hr 04/19/23 06:00 Ancef Duplex IVPB 04/19/23 16:00 PREOP ROBERT Ondansetron HCl 4 mg/ Sodium 52 mls @ 200 mls/hr 04/18/23 20:31 Chloride IVPB 05/18/23 20:30 Q6H PRN PRN IV Miscellaneous Supplies 1 each 04/19/23 06:00 Iv Access IV 05/18/23 23:59 DIRECTED ROBERT Morphine Sulfate 2 mg 04/18/23 20:31 Morphine 4 Mg/Ml Syr IVP 05/18/23 20:30 Q1H PRN PRN Sodium Chloride 0 ml 04/19/23 06:00 Normal Saline Flush 10 Ml Syr IV 05/18/23 23:59 PRN PRN Sodium Chloride 0 ml 04/19/23 06:00 Normal Saline 10 Ml Vial IJ 05/18/23 23:59 DIRECTED PRN Sterile Water 0 ml 04/19/23 06:00 Water,Injection,Sterile 10 Ml Vial IJ 05/18/23 23:59 DIRECTED PRN Tramadol HCl 50 mg 04/18/23 20:31 Tramadol 50 Mg Tab PO 05/18/23 20:30 Q6H PRN PRN Pain PFSH Active Problems Active Problems: Problem Status Onset Code Hearing loss H91.90 Enlarged prostate N40.0 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 Acute low back pain M54.50 Umbilical hernia K42.9 Tendinitis of left rotator cuff M75.82 Right rotator cuff tendinitis M75.81 COPD (chronic obstructive pulmonary disease) J44.9 Septic prepatellar bursitis of right knee M71.161 Insomnia G47.00 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 pt reports symptoms are funny odor, dizziness, and nausea. Pt is being worked up at [facility] [place] and has an upcoming MRI. Surgical History Surgical History H/O arthroscopy of hip Status post total hip replacement, right (~11/2020) History of colonoscopy Status post heart valve replacement (01/10/14) History of aortic stenosis Ascending aorta aneurysm Tobacco Smoking/Tobacco Use Status: Former Tobacco Use Alcohol Alcohol Intake: current Alcohol intake frequency: a few times a month Alcohol type: wine Substance Use Substance use: Never Substance use type: does not use Vital Signs and Lab Results Vital Signs Most Recent Vital Signs in EMR: Most Recent Vital Signs Temp Pulse Resp BP Pulse Ox 36.4 C L 67 18 133/79 97 04/19/23 07:42 04/19/23 07:42 04/19/23 07:42 04/19/23 07:42 04/19/23 07:42 Lab Results Blood Type / Crossmatch: No Data to Display Complete Blood Count: No Data to Display Complete Metabolic Panel: No Data to Display Liver Function Panel: No Data to Display Coagulation Panel: No Data to Display Cardiac Panel: No Data to Display Arterial Blood Gas: No Data to Display Venous Blood Gas: No Data to Display Pancreas Panel: No Data to Display Thyroid Panel: No Data to Display Infectious Disease: No Data to Display Blood Cultures: No Data to Display Toxicology Panel: No Data to Display Imaging and Studies Imaging and Studies Study information below may be from another EMR and interpreted by another provider. Please see original notes in EMR for more complete details. EKG Summary: EKG PATIENT NAME: Riccardo Corea UNIT #: [id number] ORDERING PROVIDER: Kerrie Koroma M.D. PRIMARY CARE PROVIDER: DESTINY GOMEZ DATE/TIME OF SERVICE: 09/23/22 1314 : 1945 PERFORMING LOCATION: .CARD APPROVED REPORT Exam: Resting ECG Reason for Exam: aortic valve stenosis Patient Location: O HR:60 bpm ECG Measurements Heart Rate 60 AXIS NV 195 P 43 QRSd 98 QRS 56 QT 429 T61 QTc 429 Conclusion Sinus rhythm...normal P axis, V-rate 50- 99 Borderline low voltage, extremity leads...all extremity leads <0.6mV <Electronically signed by KERRIE KOROMA MD in OV> E-Sign Date: 09/23/22 E-Sign Time: 1427 Echocardiogram Summary: Patient Name: Riccardo Corea Unit #: [id number] Loc: Ordering Provider: Renetta Fatima DO Status: REG [facility] Primary Care Provider: Destiny Lucas Date of Exam: 08/17/22 Sex: M Admission Date: 08/17/22 : 1945 Age: 76 APPROVED REPORT EXAM: Comprehensive 2D, Doppler, and color-flow Echocardiogram Patient Location: Out-Patient Recreation Activities Coordinator: Jose De Jesus Rush RDMS, RVT Indications: H/X of aortic valve replacement, Bioprosthetic , ascending aorta dilation Other Information Study Quality: Adequate Conclusion Normal left ventricular wall thickness and chamber size. Ejection fraction is 55%. Wall motion is normal Normal right ventricular size and systolic function Both atria are normal in size There is a bioprosthetic aortic valve replacement. Mean gradient is 10 mmHg. There is no aortic regurgitation Normal mitral valve with moderate regurgitation Normal tricuspid valve with mild regurgitation Wall motion Left Ventricle The left ventricle is normal size. The left ventricular systolic function is normal. The left ventricular ejection fraction is within the normal range. There is normal left ventricular wall thickness. There is normal LV segmental wall motion. There is no ventricular septal defect visualized. LVEF is 55-60%. Right Ventricle The right ventricle is normal size. Right ventricular systolic function is grossly normal. Atria The left atrium size is normal. The right atrium size is normal. The interatrial septum is intact with no evidence for an atrial septal defect. Aortic Valve Aortic valve is trileaflet. No aortic regurgitation is present. Bioprosthetic aortic valve is present. Mitral Valve The mitral valve is normal in structure. No evidence of mitral valve stenosis. Moderate mitral regurgitation. Tricuspid Valve The tricuspid valve is normal in structure. There is no tricuspid valve stenosis. Mild tricuspid regurgitation. Pulmonic Valve The pulmonary valve is normal in structure. There is no pulmonic valvular stenosis. There is no pulmonic valvular regurgitation. Great Vessels The aortic root is normal in size. Aortic arch is not well visualized. Ascending aorta is not well visualized. IVC is normal in size and collapses >50% with inspiration. Pericardium There is no pericardial effusion. 2D Dimensions IVSD d PLAX 0.70 cm M: 0.6-1.2LV Vol A2C d MOD 140.2 mL LVPW d PLAX 0.78 cm M: 0.6 - 1.2LV Vol A4C d MOD 133.1 mL LVID d PLAX 4.97 cm M: 4.2 - 5.8LA vol/ BSA A2C s A-L49.4 mL/m2 LVDs 3.55 cm M: 2.5 - 4.0LA vol/ BSA A4C s A-L33.3 mL/m2 Ao Root d 2.81 cm M: 3.1 - 3.7LA Vol/ BSA Biplane s A-L 43.8 mL/m2 LV EF Teichholz 53.5 %LA Area A4C s MOD 20.94 cm2 LVEF (Shaw's)55.82 % M: 52 - 72LA Area A2C s MOD 27.56 cm2 LV Mwnwyf865.59 mL M: 62 - 150LV EF A4C MOD 54.8 % LV Volume Index50.04 mL/m2 M: 34 - 74LV EF A2C MOD 54.9 % LV Vol Biplane MOD 139.6 mLLV EF Biplane MOD 55.8 % FS27.65 %SV77.91 mL SV Index37.72 mL/m2 M-Mode TAPSE 2.54 cm (M/F) >1.7 LV Diastology MV E' medial0.104 (>0.07 m/s)E/A Ratio 1.6 LV E/e MED8.30 (<14)MV E Vmax 0.86 (0.4-1.3 m/s) MV E' lateral0.126 (>0.1 m/s)MV A Vmax 0.55 (0.4-1.3 m/s) LV E/e LAT6.85 (<14)MV E/A Ratio 1.53 MV E/E' medial 8.31 MV E/E' lateral6.86 Aortic Valve LVOT Area4.27 cm2AoV Area Vmax2.26 cm2 LVOT Vmax 0.93 m/sAoV Area/ BSA (Vmax)1.09 cm2/m2 LVOT Mean Wisam.0.68 m/sAVA Mean Wisam.2.33 cm2 LVOT Peak Grad 3.5 mmHgAVA Mean Wisam. Index1.13 cm2/m2 LVOT Mean Grad 2.2 mmHg LVOT VTI0.257 m LVOT Diam s 2.30 cm AoV Vmax2.12 m/s Velocity Ratio 0.44 AoV Mean Wisam.1.48 m/s AoV Peak Grad18.5 mmHg LVOT SV 124.24 mL AoV Mean Grad10.0 mmHg AoV VTI0.533 m AoV Area VTI2.33 cm2 AoV Area/ BSA (VTI)1.13 cm/m2 Mitral Valve MV DT 213 (160-240 msec)MR PISA Radius 0.58 cm MV PHT62 msecMR Aliasing Velocity 0.35 m/s MV Area PHT 3.55 cm2MR PISA 2.14 cm2 MV VTI 0.312 m MV Area VTI 3.98 (4.0-6.0 cm2) Pulmonary Valve PV Vmax 1.02 (0.5-1.5 m/s)RVOT Peak Gr.0.49 mmHg PV Peak Grad 4.1 mmHgRVOT Mean Gr.0.30 mmHg PV Mean Grad 2.1 mmHgRVOT VTI0.093 m PV VTI 0.188 mRVOT Vmax 0.35 m/s Tricuspid Valve TR Peak Grad 25.8 mmHgTR Vmax 2.54 m/s RA Pressure 3.00 mmHg RVSP (TR) 28.9 mmHg Ordered By: Renetta Fatima DO CC: RICHMOND MAXWELL,PATRICIA Johnson Dictated By: Kerrie Koroma M.D. 08/17/22 1711 <Electronically signed by Kerrie Koroma M.D. in OV> 08/19/22 0818 Transcribed By: Kerrie Koroma MD This is privileged, confidential information intended only for the provider named. Any use or distribution by any person other than this provider is strictly prohibited. If you receive this report in error, please notify us immediately at [phone] and return the original report to us at the address above. Thank-you. Anesthesia Assessment and Plan Anesthesia History Personal History: No History of Anesthesia Complications Family History: No Family History of Anesthesia Complications Exercise Tolerance Exercise Tolerance: Metabolic Equivalents>4 Pertinent Negatives Pertinent Negatives: No Symptoms of GERD Cardiac & Pulmonary Exam Cardiac Exam: Normal S1/S2 Heart Sounds Pulmonary Exam: Clear Bilateral Breath Sounds Implantable Cardiac Device Does patient have a Pacemaker or an ICD?: No Airway Exam Mallampati Class: 3 Mouth Opening: Narrow (< 3cm) Thyromental Distance: Less than 3 cm Neck Range of Motion: Limited ROM Neck Circumference: Normal Teeth Condition: Normal Dentition ASA Classification ASA Score: ASA 3 NPO Status NPO Status: NPO Clears >2 hours, Solids >8 hours Anesthesia Plan Resuscitation Status: Full Code
[2023-04-19] MEDS: ceFAZolin 2 GM/50 ML BAG IVPB (09:11)
[2023-04-19] MEDS: Bupivacaine 0.25% Pres-Free 30 ML VIAL (09:34)
--- NOTE | 2023-04-19 09:49 | W.ANESNERVE ---
Nerve Block Single Injection Procedure Date and Time Date Performed: 04/19/23 Procedure Start: 09:11 Location Where Procedure Performed Procedure Location: Operating Room Procedure Stop: 09:20 Reason Performed: Postoperative Analgesia Requesting Provider: Renetta Fatima Timeout Performed Timeout Performed: Yes Monitoring Used ECG, Blood Pressure, SpO2, ETCO2 and See EMR for corresponding vital signs Sterility Sterility: Hand Hygiene, Surgical Cap, Surgical Mask, Sterile Gloves, Eye Protection and Chlorhexidine Sedation Given During Procedure Sedation Given (Indicate Dose Given): No Sedation given Patient Mental Status Patient Mental Status: Performed under general anesthesia Nerve Block 1st Nerve Block: Laterality: Bilateral Block Type: Rectus Sheath (Bilateral) Ultrasound Image Saved?: Yes Needle / Catheter Used: 100mm SonoPlex II Local Anesthetic Bolus (Indicate Dose Given): Injected in 3-5ml increments after negative blood aspiration, Half of Total block solution given into each side, Bupivacaine 0.5% Dose:: 30mL and Exparel Dose:: 10mL Additives (Indicate Dose Given): None Ultrasound: Sterile probe cover and gel used Nerve Stimulator: Not Used Paresthesia: None Procedure Tolerated: No Complications and Patient tolerated well Procedure Outcome: Successful Performed By: Loren Page Supervised By: Raleigh Luevano
--- NOTE | 2023-04-19 10:34 | ROE_ITS ---
Date of service: 04/19/23 Time of Service: 10:35 Operative Note Operative Note DATE OF PROCEDURE: 04/19/23 PRE-OP DIAGNOSIS: Symptomatic umbilical hernia POST-OP DIAGNOSIS: same PROCEDURE: Open umbilical hernia with mesh-2 cm SURGEON: Renetta Short PROFESSOR OF POULTRY SCIENCE: Julianna Flores ANESTHESIA TYPE: Local By Surgeon, General LMA/ETT and Primary Nerve Block Refer to Anesthesia Record ESTIMATED BLOOD LOSS: 5 PATHOLOGY: none sent COMPLICATIONS: None Patient was transported to: PACU Patient's condition: stable Procedure Description: The pt is here today for symptomatic umbilical hernia and is here today for repair. Informed consent was obtained, explaining risks and benefits of the procedure including but not limited to bleeding, infection, pneumonia, blood clots, recurrence, chronic pain or chronic numbness, reaction to mesh necessitating removal, complications of anesthesia and other unforetold complications. DESCRIPTION OF PROCEDURE: The patient was brought to the operating suite and placed in supine position. Anesthesia was administered per the Department of Anesthesia. Nerve block is done per the Dept of anesthesia w/ experel.? ?Patient prepped and draped in the usual sterile fashion using DuraPrep scrub solution. IV antibiotics were administered. Pause for the cause was done. 10cc of .25% Marcaine is used for local anesthetic. A 2-inch incision was made in the inferiorly to the umbilicus. Umbilicus was dissected off the fascia. The surrounding tissue is dissected off the fascia.? Omentum is protruding through the defect. This was excised.. It is not infarcted. The defect is 2 cm. A large. Kerlix patch was then placed in the defect-see [employer] notes for lot number. The defect was over sewn with 2-0 vicryl and was copiously irrigated.. Deep tissue was approximated with 3-0 Vicryl and skin was approximated with 4-0 Monocryl in a running subcuticular fashion. Skin glue was applied. The patient tolerated the procedure well without complications and was transferred to recovery room in stable condition. RENETTA SHORT,
[2023-04-19] MEDS: fentaNYL 100 MCG/2 ML VIAL IVP (10:41)
--- NOTE | 2023-04-19 10:51 | ANES.PREOP_ITS ---
General Info Date of Service Date Performed: 04/19/23 Height: 5 ft 8.9 in Weight: 94.4 kg Body Mass Index (BMI): 30.8 Surgical Procedure: Operation Date: 04/19/23 08:40 Proposed Procedure Side Surgeon p Herniorrhaphy Umbilical w/Mesh Renetta Fatima DO Actual Procedure Side Surgeon p Herniorrhaphy Umbilical w/Mesh Not Applicable Renetta Fatima DO Pre-Op Diagnosis Post-Op Diagnosis umbilical hernia umbilical hernia Meds Allergies and Home Medications Allergies Allergy/AdvReac Type Severity Reaction Status Date / Time No Known Allergies Allergy Verified 04/19/23 07:39 cats Allergy Uncoded 04/19/23 07:39 Home Medication Medication Instructions Recorded lorazepam 0.5 mg tablet 0.5 mg PO QHS PRN 04/06/19 acetaminophen 500 mg tablet 500 mg PO Q6H PRN pain #90 tabs 01/30/20 (Tylenol Extra Strength) Dynamic Ankle Foot Orthosis #1 ea 07/29/20 escitalopram oxalate 10 mg tablet 10 mg PO DAILY 08/24/22 mirabegron 50 mg tablet,extended 50 mg PO DAILY 08/24/22 release 24 hr (Myrbetriq) fluticasone fur. 100 mcg-umeclid 1 inh inhalation .every other day 12/30/22 62.5 mcg-vilant 25 mcg #60 ea inhalat.powder (Trelegy Ellipta) ibuprofen 200 mg tablet 200 mg PO Q6H PRN 03/07/23 ipratropium 0.5 mg-albuterol 3 mg 3 ml inhalation Q6H PRN 04/01/23 (2.5 mg base)/3 mL nebulization soln levetiracetam 750 mg tablet 750 mg PO BID 04/18/23 tramadol 50 mg tablet 50 mg PO Q6H PRN #14 tabs 04/19/23 Current Visit Medications: Current Medications Generic Name Dose Route Start Last Admin Trade Name Freq PRN Reason Stop Dose Admin Acetaminophen 1,000 mg 04/19/23 06:00 04/19/23 08:02 Acetaminophen 500 Mg Tab PO 04/19/23 16:00 1,000 mg PREOP ROBERT Administration Albuterol/Ipratropium 3 ml 04/19/23 10:16 Albuterol/Ipratropium 3 Ml Upd Vial UPD 05/19/23 10:15 .X1 DOSE PRN Ephedrine Sulfate 0 mg 04/19/23 10:16 Ephedrine 25 Mg/5 Ml Syringe IVP 05/19/23 10:15 DIRECTED PRN Fentanyl 0 mcg 04/19/23 10:16 04/19/23 10:41 Fentanyl 100 Mcg/2 Ml Vial IVP 05/19/23 10:15 25 mcg DIRECTED PRN Administration Gabapentin 600 mg 04/19/23 06:00 04/19/23 08:02 Gabapentin 300 Mg Cap PO 04/19/23 16:00 600 mg PREOP ROBERT Administration Hydromorphone HCl 0 mg 04/19/23 10:16 Hydromorphone 2 Mg/Ml Syr IVP 05/19/23 10:15 DIRECTED PRN Ringer's Solution 1,000 mls @ 80 mls/hr 04/19/23 06:00 04/19/23 10:06 IV 05/18/23 23:59 80 mls/hr INFUSION ROBERT Infusion Cefazolin Sodium/Dextrose 2 gm in 50 mls @ 100 mls/hr 04/19/23 06:00 04/19/23 09:36 Ancef Duplex IVPB 04/19/23 16:00 Infused PREOP ROBERT Infusion Ondansetron HCl 4 mg/ Sodium 52 mls @ 200 mls/hr 04/18/23 20:31 Chloride IVPB 05/18/23 20:30 Q6H PRN PRN IV Miscellaneous Supplies 1 each 04/19/23 06:00 Iv Access IV 05/18/23 23:59 DIRECTED ROBERT Morphine Sulfate 2 mg 04/18/23 20:31 Morphine 4 Mg/Ml Syr IVP 05/18/23 20:30 Q1H PRN PRN Naloxone HCl 0 mg 04/19/23 10:16 Naloxone 0.4 Mg/Ml Vial IVP 05/19/23 10:15 PRN PRN Ondansetron HCl 4 mg 04/19/23 10:16 Ondansetron 4 Mg/2 Ml Vial IVP 05/19/23 10:15 .X 1 DOSE PRN Nausea Sodium Chloride 0 ml 04/19/23 06:00 Normal Saline Flush 10 Ml Syr IV 05/18/23 23:59 PRN PRN Sodium Chloride 0 ml 04/19/23 06:00 Normal Saline 10 Ml Vial IJ 05/18/23 23:59 DIRECTED PRN Sterile Water 0 ml 04/19/23 06:00 Water,Injection,Sterile 10 Ml Vial IJ 05/18/23 23:59 DIRECTED PRN Tramadol HCl 50 mg 04/18/23 20:31 Tramadol 50 Mg Tab PO 05/18/23 20:30 Q6H PRN PRN Pain PFSH Active Problems Active Problems: Problem Status Onset Code Hearing loss H91.90 Enlarged prostate N40.0 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 Acute low back pain M54.50 Umbilical hernia K42.9 Tendinitis of left rotator cuff M75.82 Right rotator cuff tendinitis M75.81 COPD (chronic obstructive pulmonary disease) J44.9 Septic prepatellar bursitis of right knee M71.161 Insomnia G47.00 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 pt reports symptoms are funny odor, dizziness, and nausea. Pt is being worked up at [facility] and has an upcoming MRI. Surgical History Surgical History H/O arthroscopy of hip Status post total hip replacement, right (~11/2020) History of colonoscopy Status post heart valve replacement (01/10/14) History of aortic stenosis Ascending aorta aneurysm Tobacco Smoking/Tobacco Use Status: Former Tobacco Use Alcohol Alcohol Intake: current Alcohol intake frequency: a few times a month Alcohol type: wine Substance Use Substance use: Never Substance use type: does not use Vital Signs and Lab Results Vital Signs Most Recent Vital Signs in EMR: Most Recent Vital Signs Temp Pulse Resp BP Pulse Ox 36.5 C 56 L 15 142/71 H 95 04/19/23 10:28 04/19/23 10:28 04/19/23 10:28 04/19/23 10:04/19/23 10:28 Lab Results Blood Type / Crossmatch: No Data to Display Complete Blood Count: No Data to Display Complete Metabolic Panel: No Data to Display Liver Function Panel: No Data to Display Coagulation Panel: No Data to Display Cardiac Panel: No Data to Display Arterial Blood Gas: No Data to Display Venous Blood Gas: No Data to Display Pancreas Panel: No Data to Display Thyroid Panel: No Data to Display Infectious Disease: No Data to Display Blood Cultures: No Data to Display Toxicology Panel: No Data to Display Imaging and Studies Imaging and Studies Study information below may be from another EMR and interpreted by another provider. Please see original notes in EMR for more complete details. EKG Summary: EKG PATIENT NAME: Riccardo Corea UNIT #: [id number] ORDERING PROVIDER: Kerrie Koroma M.D. PRIMARY CARE PROVIDER: DESTINY GOMEZ DATE/TIME OF SERVICE: 09/23/22 1314 : 1945 PERFORMING LOCATION: .CARD APPROVED REPORT Exam: Resting ECG Reason for Exam: aortic valve stenosis Patient Location: O HR:60 bpm ECG Measurements Heart Rate 60 AXIS NH 195 P 43 QRSd 98 QRS 56 QT 429 T61 QTc 429 Conclusion Sinus rhythm...normal P axis, V-rate 50- 99 Borderline low voltage, extremity leads...all extremity leads <0.6mV ------ <Electronically signed by KERRIE KOROMA MD in OV> E-Sign Date: 09/23/22 E-Sign Time: 1427 Echocardiogram Summary: Patient Name: Riccardo Corea Unit #: [id number] Loc: DI Ordering Provider: Renetta Fatima DO Status: REG CLI Primary Care Provider: Destiny Lucas Date of Exam: 08/17/22 Sex: M Admission Date: 08/17/22 : 1945 Age: 76 APPROVED REPORT EXAM: Comprehensive 2D, Doppler, and color-flow Echocardiogram Patient Location: Out-Patient Supervisor [employer] Buildings: Jose De Jesus Rush RDMS, T Indications: H/X of aortic valve replacement, Bioprosthetic , ascending aorta dilation Other Information Study Quality: Adequate Conclusion Normal left ventricular wall thickness and chamber size. Ejection fraction is 55%. Wall motion is normal Normal right ventricular size and systolic function Both atria are normal in size There is a bioprosthetic aortic valve replacement. Mean gradient is 10 mmHg. There is no aortic regurgitation Normal mitral valve with moderate regurgitation Normal tricuspid valve with mild regurgitation Wall motion Left Ventricle The left ventricle is normal size. The left ventricular systolic function is normal. The left ventricular ejection fraction is within the normal range. There is normal left ventricular wall thickness. There is normal LV segmental wall motion. There is no ventricular septal defect visualized. LVEF is 55-60%. Right Ventricle The right ventricle is normal size. Right ventricular systolic function is grossly normal. Atria The left atrium size is normal. The right atrium size is normal. The interatrial septum is intact with no evidence for an atrial septal defect. Aortic Valve Aortic valve is trileaflet. No aortic regurgitation is present. Bioprosthetic aortic valve is present. Mitral Valve The mitral valve is normal in structure. No evidence of mitral valve stenosis. Moderate mitral regurgitation. Tricuspid Valve The tricuspid valve is normal in structure. There is no tricuspid valve stenosis. Mild tricuspid regurgitation. Pulmonic Valve The pulmonary valve is normal in structure. There is no pulmonic valvular stenosis. There is no pulmonic valvular regurgitation. Great Vessels The aortic root is normal in size. Aortic arch is not well visualized. Ascending aorta is not well visualized. IVC is normal in size and collapses >50% with inspiration. Pericardium There is no pericardial effusion. 2D Dimensions IVSD d PLAX 0.70 cm M: 0.6-1.2LV Vol A2C d MOD 140.2 mL LVPW d PLAX 0.78 cm M: 0.6 - 1.2LV Vol A4C d MOD 133.1 mL LVID d PLAX 4.97 cm M: 4.2 - 5.8LA vol/ BSA A2C s A-L49.4 mL/m2 LVDs 3.55 cm M: 2.5 - 4.0LA vol/ BSA A4C s A-L33.3 mL/m2 Ao Root d 2.81 cm M: 3.1 - 3.7LA Vol/ BSA Biplane s A-L 43.8 mL/m2 LV EF Teichholz 53.5 %LA Area A4C s MOD 20.94 cm2 LVEF (Shaw's)55.82 % M: 52 - 72LA Area A2C s MOD 27.56 cm2 LV Eraurz233.59 mL M: 62 - 150LV EF A4C MOD 54.8 % LV Volume Index50.04 mL/m2 M: 34 - 74LV EF A2C MOD 54.9 % LV Vol Biplane MOD 139.6 mLLV EF Biplane MOD 55.8 % FS27.65 %SV77.91 mL SV Index37.72 mL/m2 M-Mode TAPSE 2.54 cm (M/F) >1.7 LV Diastology MV E' medial0.104 (>0.07 m/s)E/A Ratio 1.6 LV E/e MED8.30 (<14)MV E Vmax 0.86 (0.4-1.3 m/s) MV E' lateral0.126 (>0.1 m/s)MV A Vmax 0.55 (0.4-1.3 m/s) LV E/e LAT6.85 (<14)MV E/A Ratio 1.53 MV E/E' medial 8.31 MV E/E' lateral6.86 Aortic Valve LVOT Area4.27 cm2AoV Area Vmax2.26 cm2 LVOT Vmax 0.93 m/sAoV Area/ BSA (Vmax)1.09 cm2/m2 LVOT Mean Wisam.0.68 m/sAVA Mean Wisam.2.33 cm2 LVOT Peak Grad 3.5 mmHgAVA Mean Wisam. Index1.13 cm2/m2 LVOT Mean Grad 2.2 mmHg LVOT VTI0.257 m LVOT Diam s 2.30 cm AoV Vmax2.12 m/s Velocity Ratio 0.44 AoV Mean Wisam.1.48 m/s AoV Peak Grad18.5 mmHg LVOT SV 124.24 mL AoV Mean Grad10.0 mmHg AoV VTI0.533 m AoV Area VTI2.33 cm2 AoV Area/ BSA (VTI)1.13 cm/m2 Mitral Valve MV DT 213 (160-240 msec)MR PISA Radius 0.58 cm MV PHT62 msecMR Aliasing Velocity 0.35 m/s MV Area PHT 3.55 cm2MR PISA 2.14 cm2 MV VTI 0.312 m MV Area VTI 3.98 (4.0-6.0 cm2) Pulmonary Valve PV Vmax 1.02 (0.5-1.5 m/s)RVOT Peak Gr.0.49 mmHg PV Peak Grad 4.1 mmHgRVOT Mean Gr.0.30 mmHg PV Mean Grad 2.1 mmHgRVOT VTI0.093 m PV VTI 0.188 mRVOT Vmax 0.35 m/s Tricuspid Valve TR Peak Grad 25.8 mmHgTR Vmax 2.54 m/s RA Pressure 3.00 mmHg RVSP (TR) 28.9 mmHg Ordered By: Renetta Fatima DO CC: PATRICIA FRAGOSO MD Dictated By: Kerrie Koroma M.D. 08/17/22 1711 <Electronically signed by Kerrie Koroma M.D. in OV> 08/19/22 4623 Transcribed By: Kerrie Koroma MD This is privileged, confidential information intended only for the provider named. Any use or distribution by any person other than this provider is strictly prohibited. If you receive this report in error, please notify us immediately at [phone] and return the original report to us at the address above. Thank-you. Anesthesia Assessment and Plan Anesthesia History Personal History: No History of Anesthesia Complications Family History: No Family History of Anesthesia Complications Exercise Tolerance Exercise Tolerance: Metabolic Equivalents>4 Implantable Cardiac Device Does patient have a Pacemaker or an ICD?: No Airway Exam Known Difficult Airway: No Mallampati Class: 3 Mouth Opening: Narrow (< 3cm) Thyromental Distance: Less than 3 cm Neck Range of Motion: Limited ROM Neck Circumference: Normal Teeth Condition: Normal Dentition
[2023-04-19] MEDS: traMADol 50 MG TAB PO (11:44)
--- NOTE | 2023-04-19 12:38 | W.ANESPOSTOP ---
Postoperative Evaluation Date, Time and Location Date Performed: 04/19/23 Time Performed: 12:10 Patient Location: Day Surgery Unit Vital Signs Most Recent Imported Vital Signs: Most Recent Vital Signs Temp Pulse Resp BP Pulse Ox 36.4 C L 56 L 18 131/77 97 04/19/23 11:37 04/19/23 11:37 04/19/23 11:37 04/19/23 11:37 04/19/23 11:37 Pain Score Most Recent Pain Score: Most Recent Pain Score Pain Level 4 04/19/23 11:37 Assessment Mental Status: Awake (Alert & Oriented to Patient Baseline) Airway and Respiratory Function: Patent airway with normal (patient baseline) respiratory exam Cardiovascular Function: Hemodynamically Stable Hydration Status: Adequately Hydrated Nausea & Vomiting: No Nausea or Vomiting Pain: Pain is tolerable per patient Peripheral Nerve Block: Regional nerve block not resolved at time of post operative discharge Postoperative Comments:: Patient with unexpected bile in airway during second intubation attempt. Placed easily without bile entering glottis/trachea, visualized with glidescope. Recommend with possible silent GERD that patient be intubated for GA in the future. I did discuss that I would be placing this note in his preop as an addendum and in this postoperative document. Patient denied questions.
== END 2023-04-19 12:32 | disposition home or self-care (01) ==
PROVIDERS: PCP Physician Assistant Medical; Visit Provider Surgery
PROC: (CPT 49591; principal; 2023-04-19 08:30)
DX: K42.9 Umbilical hernia without obstruction or gangrene (principal); J44.9 Chronic obstructive pulmonary disease, unspecified; I35.0 Nonrheumatic aortic (valve) stenosis; Z87.891 Personal history of nicotine dependence
CPT/HCPCS: 49591; 76942; C1781; C9290; J0665; J0690; J1100; J1885; J2001; J2405; J2704; J3010

== ENCOUNTER → 2023-04-28 10:14 | Outpatient (BNVA) | payer MEDICARE, BC, SELFPAY | PROVIDERS: PCP Physician Assistant Medical; Referring Provider Physician Assistant Medical; Visit Provider Student in an Organized Health Care Education/Training Program | DX: M17.11 Unilateral primary osteoarthritis, right knee (principal); M17.12 Unilateral primary osteoarthritis, left knee | CPT/HCPCS: 20610; J7318 ==

== ENCOUNTER → 2023-05-05 11:41 | Outpatient (BNVA) | payer MEDICARE, BC, SELFPAY | PROVIDERS: PCP Physician Assistant Medical; Referring Provider Physician Assistant Medical; Visit Provider Physical Therapy Assistant | DX: Z48.817 Encounter for surgical aftercare following surgery on the skin and subcutaneous tissue (principal) ==

== ENCOUNTER → 2023-06-30 11:05 | Outpatient (BNVA) | payer MEDICARE, BC, SELFPAY | PROVIDERS: PCP Physician Assistant Medical; Referring Provider Physician Assistant Medical; Visit Provider Student in an Organized Health Care Education/Training Program | DX: J44.9 Chronic obstructive pulmonary disease, unspecified (principal); R06.00 Dyspnea, unspecified | CPT/HCPCS: 99214 ==

== ENCOUNTER → 2023-07-25 04:13 | Outpatient (CLI) | payer MEDICARE, BC, SELFPAY ==
--- NOTE | 2023-07-25 13:31 | DI.US_ITS ---
APPROVED REPORT EXAM: Comprehensive 2D, Doppler, and color-flow Echocardiogram Patient Location: Out-Patient Aviation Manager: Kiana Ingram RDCS (AE) Indications: Dyspnea, Mitral regurgitation Other Information Study Quality: Adequate Conclusion Normal left ventricular wall thickness and chamber size. EF is 65%. Wall motion is normal Normal right ventricular size and function Left atrium is mildly dilated. Normal right atrial size There is a bioprostehetic aortic valve. Mean gradient is 13 mmHg. No aortic regurgitation Mitral annular calcification. Mild to moderate mitral regurgitation RVSP 32 mmHg Wall motion Left Ventricle The left ventricle is normal size. The left ventricular systolic function is normal. The left ventric ular ejection fraction is within the normal range. There is normal left ventricular wall thickness. T here is normal LV segmental wall motion. There is no ventricular septal defect visualized. LVEF is 65 %. Right Ventricle Right ventricle is grossly normal in size. Right ventricular systolic function is grossly normal. Atria Left atrium is mildly dilated. Right atrium is mildly dilated. The interatrial septum is intact with no evidence for an atrial septal defect. Aortic Valve No hemodynamically significant valvular aortic stenosis. No aortic regurgitation is present. Biopros thetic aortic valve is present. Mitral Valve Mild mitral annular calcification. No evidence of mitral valve stenosis. Mild to moderate mitral re gurgitation. Tricuspid Valve The tricuspid valve is normal in structure. There is no tricuspid valve stenosis. Mild tricuspid regu rgitation. The RVSP is 31.9 mmHg. Pulmonic Valve The pulmonary valve is normal in structure. There is no pulmonic valvular stenosis. Trace pulmonic re gurgitation. Great Vessels The aortic root is normal in size. The ascending aorta is normal in size. IVC is normal in size and c ollapses >50% with inspiration. Pericardium There is no pericardial effusion. 2D Dimensions IVSD d PLAX 1.04 cm M: 0.6-1.2 Ao Root d 2.81 cm M: 3.1 - 3.7 LVPW d PLAX 1.00 cm M: 0.6 - 1.2 Ao Asc Diam d 3.02 cm M: 2.6 - 3.4 LVID d PLAX 5.22 cm M: 4.2 - 5.8 LVDs 3.33 cm M: 2.5 - 4.0 LV EF Teichholz 65.4 % FS 36.15 % LV EDV (Teich) 130.4 mL LV ESV (Teich) 45.1 mL M-Mode TAPSE 2.59 cm (M/F) >1.7 Auto EF LV EDV A4C 128.8 mL LV EDV A2C 165.4 mL LV EDV BP 147.4 mL LV ESV A4C 52.7 mL LV ESV A2C 62.8 mL LV ESV BP 57.7 mL LVEF(%) A4C 59.1 % LVEF(%) A2C 62.0 % LVEF(%) BP 60.9 % LV SV A4C 76.1 ml LV SV A2C 102.6 ml LV SV BP 89.7 ml LV CO A4C 4.4 L/min LV CO A2C 5.8 L/min LV CO BP 5.1 L/min HR A4C 57.88 BPM HR A2C 56.43 BPM LV EDV Index (BP) RV Strain Global Peak Long. Strain A4C 19.90 Global Peak Long. Strain A4C FW 25.85 LA Volume LA Length A4C 5.6 cm LA Length A2C 5.7 cm LA Area A4C s 27.28 cm2 LA Area A2C s 26.57 cm2 LA Vol A4C A-L 113.61 mL LA Vol A2C A-L 104.40 mL LA Vol Biplane A-L 110.7 mL LA Vol/BSA A4C A-L LA Vol/BSA A2C A-L LA Vol/BSA BP A-L 53.0 mL/m2 LA Vol A4C MOD 100.8 mL LA Vol A2C MOD 96.9 mL LA Vol BP MOD 100.1 mL RA Volume RA Area A4C 25.3 cm2 RA ESV A4C (A-L) 86.0mL RA Vol/BSA A4C A-L RA Length A4C 6.3 cm RA ESV A4C (MOD) 79.2mL LV Diastology MV E' medial 0.092 (>0.07 m/s) MV E Vmax 0.79 (0.4-1.3 m/s) MV E/E' MED 8.56 (<14) MV A Vmax 0.70 (0.4-1.3 m/s) E/A Ratio 1.1 Aortic Valve AoV Vmax 2.52 m/s LVOT Vmax 1.42 m/s AoV Peak Grad 25.5 mmHg LVOT Peak Grad 8.0 mmHg AoV Area (Vmax) 1.91 cm2 LVOT VTI 0.281 m AoV VTI 0.616 m LVOT Mean Grad 4.4 mmHg AoV Mean Wisam. 1.69 m/s LVOT SV 95.78 mL AoV Mean Grad 13.2 mmHg LVOT Diam s 2.05 cm AoV Area (VTI) 1.56 cm2 Velocity Ratio 0.56 Mitral Valve MV DT 221 (160-240 msec) MR Vmax 5.56 m/s MR VTI 2.128 m MR Peak Grad 123.5 mmHg MR Mean Grad 99.8 mmHg Pulmonary Valve PV Vmax 1.26 (0.5-1.5 m/s) RVOT Vmax 0.68 m/s PV Peak Grad 6.4 mmHg RVOT Peak Gr. 1.8 mmHg PV Mean Wisam 0.75 m/s RVOT VTI 0.165 m PV Mean Grad 2.7 mmHg RVOT Mean Gr. 1.0 mmHg Tricuspid Valve RA Pressure 3.00 mmHg TR Vmax 2.69 m/s TV S' 0.15 m/s TR Peak Grad 28.8 mmHg RVSP (TR) 31.9 mmHg
== END ==
PROVIDERS: PCP Physician Assistant Medical; Visit Provider Student in an Organized Health Care Education/Training Program
DX: R06.00 Dyspnea, unspecified (principal)
CPT/HCPCS: 93306

== ENCOUNTER → 2023-07-26 11:42 | Outpatient (BNVA) | payer MEDICARE, BC, SELFPAY | PROVIDERS: PCP Physician Assistant Medical; Referring Provider Physician Assistant Medical; Visit Provider Internal Medicine Cardiovascular Disease | DX: Z95.2 Presence of prosthetic heart valve (principal) | CPT/HCPCS: 99213 ==

== ENCOUNTER → 2023-07-28 10:02 | Outpatient (BNVA) | payer MEDICARE, BC, SELFPAY | PROVIDERS: PCP Physician Assistant Medical; Referring Provider Physician Assistant Medical; Visit Provider Student in an Organized Health Care Education/Training Program | DX: M17.11 Unilateral primary osteoarthritis, right knee (principal); M17.12 Unilateral primary osteoarthritis, left knee | CPT/HCPCS: 20610; J1010 ==

== ENCOUNTER 2023-09-06 15:39 | Outpatient (CLI) | payer MEDICARE, BC, SELFPAY ==
--- NOTE | 2023-09-06 11:30 | DI.RAD_ITS ---
Exam(s) XR SHOULDER RT COMPLETE 2+V EXAM: XR SHOULDER RT COMPLETE 2+V CLINICAL HISTORY: RIGHT SHOULDER PAIN. TECHNIQUE: 2D digital imaging was performed of the right shoulder. Three images were obtained. AP, Grashey views were obtained. COMPARISON: CT CT CHEST WO CONTRAST from 05/06/2023 FINDINGS: BONES: There is a fracture of the distal clavicle noted. The fracture appears to be nonunited. This was not present on the CT scan of the chest from 05/06/2023. No bony destructive lesion is seen. JOINTS: No dislocation present. SOFT TISSUE: Normal. IMPRESSION: There is deformity of the distal clavicle suspicious for nonunited fracture. A CT scan of the should er should be considered for further evaluation. DATA REPOSITORY: RADIATION DOSE DELIVERED:
== END 2023-09-06 15:40 | disposition home or self-care (01) ==
LOC: DIORS 15:39
PROVIDERS: PCP Physician Assistant Medical; Referring Provider Physician Assistant Medical; Visit Provider Student in an Organized Health Care Education/Training Program
DX: M75.101 Unspecified rotator cuff tear or rupture of right shoulder, not specified as traumatic; V28.01XA Electric (assisted) bicycle driver injured in noncollision transport accident in nontraffic accident, initial encounter
CPT/HCPCS: 99213; 73030

== ENCOUNTER → 2023-10-06 00:40 | Outpatient (CLI) | payer MEDICARE, BC, SELFPAY ==
--- NOTE | 2023-10-06 07:15 | DI.MRI_ITS ---
Exam(s) MR UPPER JOINT RT WO EXAM: MR UPPER JOINT RT WO CLINICAL HISTORY: R SHOULDER PAIN,rt rotator cuff tear,m75.101. TECHNIQUE: Multiplanar multisequence MRI was performed. COMPARISON: CT CT CHEST WO CONTRAST from 05/06/2023 CR XR SHOULDER RT COMPLETE 2+V from 09/06/2023 FINDINGS: BONES: There is again seen a fracture of the distal clavicle. There is marrow edema seen in the dist al clavicle in both fragments. No significant surrounding edema is seen. This likely represents a s ubacute versus nonunited fracture. There is a small amount of fluid seen in the acromioclavicular cassi int. There is minimal edema seen in the acromion across the joint space. JOINTS: The glenohumeral joint is normal. TENDONS: Supraspinatus: There is tendinosis of the supraspinatus tendon. There are few foci of hyperintense s ignal seen in the supraspinatus tendon at its insertion site suggesting is small partial tear. Infraspinatus: Unremarkable. Subscapularis: Unremarkable. Teres Minor: Unremarkable. Biceps and [place]: Unremarkable. MUSCLES: Unremarkable. GLENOID LABRUM: Unremarkable on this noncontrast examination. SOFT TISSUES: Unremarkable. LIGAMENTS: The fibers of the cortical clavicular ligament at the coracoid attachment site are poorly defined. This raises a question of a partial tear. OTHER: There is a small amount of fluid seen in the subdeltoid bursa. IMPRESSION: 1. Distal right clavicular fracture. This may represent a subacute fracture. There is edema seen in the distal clavicle. There is mild very mild edema seen in the surrounding soft tissues. 2. Indistinct fibers of the distal cortical clavicular ligament which may represent a partial tear. 3. Tendinosis of the supraspinatus tendon. Findings of a partial tear at its insertion site. DATA REPOSITORY:
== END ==
PROVIDERS: PCP Physician Assistant Medical; Visit Provider Student in an Organized Health Care Education/Training Program
DX: M75.101 Unspecified rotator cuff tear or rupture of right shoulder, not specified as traumatic (principal)
CPT/HCPCS: 73221

== ENCOUNTER 2023-10-12 12:42 | Outpatient (CLI) | payer MEDICARE, BC, SELFPAY ==
--- NOTE | 2023-10-12 10:15 | DI.RAD_ITS ---
Exam(s) XR SHOULDER RT 1V EXAM: XR SHOULDER RT 1V CLINICAL HISTORY: F/u fracture. TECHNIQUE: 2D digital imaging was performed of the right shoulder. One images were obtained. AP vi ews were obtained. COMPARISON: CR XR SHOULDER RT COMPLETE 2+V from 09/06/2023 FINDINGS: BONES: There is no change in alignment of the fracture deformity involving the distal right clavicle. No bony destructive lesion is seen. JOINTS: The acromioclavicular joint and glenohumeral joints are stable. SOFT TISSUE: Normal. IMPRESSION: Limited examination shows stable alignment of the distal right clavicular fracture deformity. DATA REPOSITORY: RADIATION DOSE DELIVERED:
== END 2023-10-12 12:43 | disposition home or self-care (01) ==
LOC: DIORS 12:42
PROVIDERS: PCP Physician Assistant Medical; Referring Provider Physician Assistant Medical; Visit Provider Student in an Organized Health Care Education/Training Program
DX: S42.001D Fracture of unspecified part of right clavicle, subsequent encounter for fracture with routine healing; X58.XXXD Exposure to other specified factors, subsequent encounter; M75.101 Unspecified rotator cuff tear or rupture of right shoulder, not specified as traumatic
CPT/HCPCS: 99213; 73020

== ENCOUNTER → 2023-10-31 10:35 | Outpatient (BNVA) | payer MEDICARE, BC, SELFPAY | PROVIDERS: PCP Physician Assistant Medical; Referring Provider Physician Assistant Medical; Visit Provider Student in an Organized Health Care Education/Training Program | DX: M17.11 Unilateral primary osteoarthritis, right knee (principal); M17.12 Unilateral primary osteoarthritis, left knee | CPT/HCPCS: 20610; J7318 ==

== ENCOUNTER → 2023-12-28 14:32 | Outpatient (BNVA) | payer MEDICARE, BC, SELFPAY | PROVIDERS: PCP Physician Assistant Medical; Referring Provider Physician Assistant Medical; Visit Provider Internal Medicine | DX: J44.9 Chronic obstructive pulmonary disease, unspecified (principal); R91.8 Other nonspecific abnormal finding of lung field; Z87.891 Personal history of nicotine dependence | CPT/HCPCS: 99214 ==

== ENCOUNTER → 2024-02-13 10:43 | Outpatient (BNVA) | payer MEDICARE, BC, SELFPAY | PROVIDERS: PCP Physician Assistant Medical; Referring Provider Physician Assistant Medical; Visit Provider Student in an Organized Health Care Education/Training Program | DX: M17.11 Unilateral primary osteoarthritis, right knee (principal); M17.12 Unilateral primary osteoarthritis, left knee | CPT/HCPCS: 20610; J1010 ==

== ENCOUNTER 2024-03-02 09:57 | Day surgery (SDC) | payer MEDICARE, BC, SELFPAY ==
[2024-03-02 10:42] VITALS: BP 135/75; PULSE 62; RESP 16; TEMP 36.5; O2SAT 97
[2024-03-02] MEDS: Tropicam./Phenyleph. (1/2.5%) 5 ML BTL OD ×3 (10:49→10:59)
--- NOTE | 2024-03-02 11:02 | ANES.PREOP_ITS ---
General Info Date of Service Date Performed: 03/02/24 Height: 5 ft 9 in Weight: 88.7 kg Body Mass Index (BMI): 28.8 Surgical Procedure: Operation Date: 03/02/24 13:40 Proposed Procedure Side Surgeon p Cataract Extraction with IOL Implant Right Gonzalo Espinoza MD Meds Allergies and Home Medications Allergies Allergy/AdvReac Type Severity Reaction Status Date / Time No Known Allergies Allergy Verified 03/02/24 10:52 cats Allergy Intermediate Other (See Uncoded 03/02/24 10:52 Comment) Home Medication ?Medication ?Instructions ?Recorded lorazepam 0.5 mg tablet 0.5 mg PO QHS PRN 04/06/19 acetaminophen 500 mg tablet 500 mg PO Q6H PRN pain #90 tabs 01/30/20 (Tylenol Extra Strength) Dynamic Ankle Foot Orthosis #1 ea 07/29/20 mirabegron 50 mg tablet,extended 50 mg PO DAILY 08/24/22 release 24 hr (Myrbetriq) albuterol sulfate 90 mcg/actuation 2 puff inhalation Q6H PRN 12/28/23 aerosol inhaler shortness of breath or wheezing #8.5 grams budesonide 160 mcg-glycopyr 9 2 inh inhalation BID #10.7 grams 12/28/23 mcg-formot 4.8 mcg/actuation HFA inhaler (Breztri Aerosphere) fluticasone fur. 100 mcg-umeclid 1 inh inhalation .every other day 12/28/23 62.5 mcg-vilant 25 mcg #60 ea inhalat.powder (Trelegy Ellipta) ipratropium 0.5 mg-albuterol 3 mg 3 ml inhalation Q6H PRN wheezing 12/29/23 (2.5 mg base)/3 mL nebulization #180 mL soln Current Visit Medications: Current Medications Generic Name Dose Route Start Last Admin Trade Name Freq PRN Reason Stop Dose Admin Acetaminophen 1,000 mg 03/02/24 10:00 Acetaminophen 500 Mg Tab PO 04/01/24 09:59 Q4H PRN PRN Balanced Salt Solution 500 ml 03/02/24 10:00 Balanced Salt Soln.-Plus 500 Ml Bag OP 04/01/24 09:59 DIRECTED ROBERT Miscellaneous Medication 0 ml 03/02/24 10:00 Prednisolone 1%, Moxifloxacin 0.5%, Bromfenac 0.09% 5.6ml Btl OD 04/01/24 09:59 [facility] Miscellaneous Medication 0 ml 03/02/24 10:00 03/02/24 10:59 Tropicam./Phenyleph. (1/2.5%) 5 Ml Btl OD 04/01/24 09:59 1 drp DIRECTED ROBERT Administration Tetracaine HCl 0 ml 03/02/24 10:00 Tetracaine 0.5% 4 Ml Btl OD 04/01/24 09:59 [facility] PFSH Active Problems Active Problems: Problem Status Onset Code Cortical age-related cataract, right eye Acute H25.011 Nuclear age-related cataract, right eye Acute H25.11 Pulmonary nodules/lesions, multiple Acute R91.8 Current every day cannabis vapor product user Acute F12.90 Stage 2 moderate COPD by GOLD classification Acute J44.9 Right clavicle fracture Acute 08/04/23 S42.001A H/O aortic valve replacement Acute Z95.2 Thyroid nodule Acute E04.1 Hearing loss Acute H91.90 Enlarged prostate Acute N40.0 Common peroneal neuropathy Acute G57.30 Acute low back pain Acute M54.50 Umbilical hernia Acute K42.9 Tendinitis of left rotator cuff Acute M75.82 Right rotator cuff tendinitis Acute M75.81 Septic prepatellar bursitis of right knee Acute M71.161 Insomnia Acute G47.00 Ulnar neuropathy at elbow of left upper extremity Acute G56.22 Carpal tunnel syndrome of right wrist Acute G56.01 Neuropathic pain Acute M79.2 Lumbar radiculopathy Acute M54.16 Peripheral neuropathy Acute G62.9 Right foot drop Acute M21.371 Right peroneal nerve palsy Acute G57.31 Osteoarthritis of right knee Acute M17.11 Unilateral primary osteoarthritis, left knee Acute M17.12 Medical History Medical History History of cocaine abuse Pt. denies this states this is not correct does not how this got into his chart Anemia Transient visual loss Injury of right peroneal nerve Former smoker Aortic valve stenosis, nonrheumatic History of cardioversion Hx Afib s/p heart valve surgery which required cardioversion. 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) Did not require intervention; occurred during heart surgery Medical History Comments:: pt reports last seizure 6 months ago Surgical History Surgical History Hx of umbilical hernia repair (~04/2023) H/O arthroscopy of hip Status post total hip replacement, right (~11/2020) History of colonoscopy Status post heart valve replacement (01/10/14) History of aortic stenosis Ascending aorta aneurysm Tobacco Smoking/Tobacco Use Status: Former Tobacco Use Alcohol Alcohol Intake: current Alcohol intake frequency: a few times a month Alcohol type: wine Substance Use Substance use: Never Substance use type: does not use Vital Signs and Lab Results Vital Signs Most Recent Vital Signs in EMR: Most Recent Vital Signs Temp Pulse Resp BP Pulse Ox 36.5 C 62 16 135/75 97 03/02/24 10:42 03/02/24 10:42 03/02/24 10:42 03/02/24 10:42 03/02/24 10:42 Lab Results Blood Type / Crossmatch: No Data to Display Complete Blood Count: No Data to Display Complete Metabolic Panel: No Data to Display Liver Function Panel: No Data to Display Coagulation Panel: No Data to Display Cardiac Panel: No Data to Display Arterial Blood Gas: No Data to Display Venous Blood Gas: No Data to Display Pancreas Panel: No Data to Display Thyroid Panel: No Data to Display Infectious Disease: No Data to Display Blood Cultures: No Data to Display Toxicology Panel: No Data to Display Imaging and Studies Imaging and Studies Study information below may be from another EMR and interpreted by another provider. Please see original notes in EMR for more complete details. EKG Summary: EKG PATIENT NAME: Riccardo Corea UNIT #: [id number] ORDERING PROVIDER: Kerrie Koroma M.D. PRIMARY CARE PROVIDER: DESTINY GOMEZ DATE/TIME OF SERVICE: 09/23/22 1314 : 1945 PERFORMING LOCATION: .CARD APPROVED REPORT Exam: Resting ECG Reason for Exam: aortic valve stenosis Patient Location: O HR:60 bpm ECG Measurements Heart Rate 60 AXIS ME 195 P 43 QRSd 98 QRS 56 QT 429 T61 QTc 429 Conclusion Sinus rhythm...normal P axis, V-rate 50- 99 Borderline low voltage, extremity leads...all extremity leads <0.6mV <Electronically signed by KERRIE KOROMA MD in OV> E-Sign Date: 09/23/22 E-Sign Time: 1427 Echocardiogram Summary: Patient Name: Riccardo Corea Unit #: [id number] Loc: DI Ordering Provider: Renetta Fatima DO Status: REG [facility] Primary Care Provider: Destiny Lucas Date of Exam: 08/17/22 Sex: M Admission Date: 08/17/22 : 1945 Age: 76 APPROVED REPORT EXAM: Comprehensive 2D, Doppler, and color-flow Echocardiogram Patient Location: Out-Patient Distillation Operator: Jose De Jesus Rush RDMS, RVT Indications: H/X of aortic valve replacement, Bioprosthetic , ascending aorta dilation Other Information Study Quality: Adequate Conclusion Normal left ventricular wall thickness and chamber size. Ejection fraction is 55%. Wall motion is normal Normal right ventricular size and systolic function Both atria are normal in size There is a bioprosthetic aortic valve replacement. Mean gradient is 10 mmHg. There is no aortic regurgitation Normal mitral valve with moderate regurgitation Normal tricuspid valve with mild regurgitation Wall motion Left Ventricle The left ventricle is normal size. The left ventricular systolic function is normal. The left ventricular ejection fraction is within the normal range. There is normal left ventricular wall thickness. There is normal LV segmental wall motion. There is no ventricular septal defect visualized. LVEF is 55-60%. Right Ventricle The right ventricle is normal size. Right ventricular systolic function is grossly normal. Atria The left atrium size is normal. The right atrium size is normal. The interatrial septum is intact with no evidence for an atrial septal defect. Aortic Valve Aortic valve is trileaflet. No aortic regurgitation is present. Bioprosthetic aortic valve is present. Mitral Valve The mitral valve is normal in structure. No evidence of mitral valve stenosis. Moderate mitral regurgitation. Tricuspid Valve The tricuspid valve is normal in structure. There is no tricuspid valve stenosis. Mild tricuspid regurgitation. Pulmonic Valve The pulmonary valve is normal in structure. There is no pulmonic valvular stenosis. There is no pulmonic valvular regurgitation. Great Vessels The aortic root is normal in size. Aortic arch is not well visualized. Ascending aorta is not well visualized. IVC is normal in size and collapses >50% with inspiration. Pericardium There is no pericardial effusion. 2D Dimensions IVSD d PLAX 0.70 cm M: 0.6-1.2LV Vol A2C d MOD 140.2 mL LVPW d PLAX 0.78 cm M: 0.6 - 1.2LV Vol A4C d MOD 133.1 mL LVID d PLAX 4.97 cm M: 4.2 - 5.8LA vol/ BSA A2C s A-L49.4 mL/m2 LVDs 3.55 cm M: 2.5 - 4.0LA vol/ BSA A4C s A-L33.3 mL/m2 Ao Root d 2.81 cm M: 3.1 - 3.7LA Vol/ BSA Biplane s A-L 43.8 mL/m2 LV EF Teichholz 53.5 %LA Area A4C s MOD 20.94 cm2 LVEF (Shaw's)55.82 % M: 52 - 72LA Area A2C s MOD 27.56 cm2 LV Huptvr758.59 mL M: 62 - 150LV EF A4C MOD 54.8 % LV Volume Index50.04 mL/m2 M: 34 - 74LV EF A2C MOD 54.9 % LV Vol Biplane MOD 139.6 mLLV EF Biplane MOD 55.8 % FS27.65 %SV77.91 mL SV Index37.72 mL/m2 M-Mode TAPSE 2.54 cm (M/F) >1.7 LV Diastology MV E' medial0.104 (>0.07 m/s)E/A Ratio 1.6 LV E/e MED8.30 (<14)MV E Vmax 0.86 (0.4-1.3 m/s) MV E' lateral0.126 (>0.1 m/s)MV A Vmax 0.55 (0.4-1.3 m/s) LV E/e LAT6.85 (<14)MV E/A Ratio 1.53 MV E/E' medial 8.31 MV E/E' lateral6.86 Aortic Valve LVOT Area4.27 cm2AoV Area Vmax2.26 cm2 LVOT Vmax 0.93 m/sAoV Area/ BSA (Vmax)1.09 cm2/m2 LVOT Mean Wisam.0.68 m/sAVA Mean Wisam.2.33 cm2 LVOT Peak Grad 3.5 mmHgAVA Mean Wisam. Index1.13 cm2/m2 LVOT Mean Grad 2.2 mmHg LVOT VTI0.257 m LVOT Diam s 2.30 cm AoV Vmax2.12 m/s Velocity Ratio 0.44 AoV Mean Wisam.1.48 m/s AoV Peak Grad18.5 mmHg LVOT SV 124.24 mL AoV Mean Grad10.0 mmHg AoV VTI0.533 m AoV Area VTI2.33 cm2 AoV Area/ BSA (VTI)1.13 cm/m2 Mitral Valve MV DT 213 (160-240 msec)MR PISA Radius 0.58 cm MV PHT62 msecMR Aliasing Velocity 0.35 m/s MV Area PHT 3.55 cm2MR PISA 2.14 cm2 MV VTI 0.312 m MV Area VTI 3.98 (4.0-6.0 cm2) Pulmonary Valve PV Vmax 1.02 (0.5-1.5 m/s)RVOT Peak Gr.0.49 mmHg PV Peak Grad 4.1 mmHgRVOT Mean Gr.0.30 mmHg PV Mean Grad 2.1 mmHgRVOT VTI0.093 m PV VTI 0.188 mRVOT Vmax 0.35 m/s Tricuspid Valve TR Peak Grad 25.8 mmHgTR Vmax 2.54 m/s RA Pressure 3.00 mmHg RVSP (TR) 28.9 mmHg Ordered By: Renetta Fatima DO CC: PATRICIA FRAGOSO MD Dictated By: Kerrie Koroma M.D. 08/17/22 1711 <Electronically signed by Kerrie Koroma M.D. in OV> 08/19/22 0816 Transcribed By: Kerrie Koroma MD This is privileged, confidential information intended only for the provider named. Any use or distribution by any person other than this provider is strictly prohibited. If you receive this report in error, please notify us immediately at [phone] and return the original report to us at the address above. Thank-you. Anesthesia Assessment and Plan Anesthesia History Personal History: No History of Anesthesia Complications Family History: No Family History of Anesthesia Complications Exercise Tolerance Exercise Tolerance: Metabolic Equivalents>4 Pertinent Negatives Pertinent Negatives: No Major Pulmonary Symptoms or Complaints Cardiac & Pulmonary Exam Cardiac Exam: Normal S1/S2 Heart Sounds Pulmonary Exam: Clear Bilateral Breath Sounds Implantable Cardiac Device Does patient have a Pacemaker or an ICD?: No Airway Exam Known Difficult Airway: No Mallampati Class: 2 Mouth Opening: Narrow (< 3cm) Thyromental Distance: Less than 3 cm Neck Range of Motion: Limited ROM Neck Circumference: Normal Teeth Condition: Normal Dentition ASA Classification ASA Score: ASA 3 Emergency Case?: No NPO Status NPO Status: NPO Clears >2 hours, Solids >8 hours Anesthesia Plan Resuscitation Status: Full Code Anesthesia Technique: MAC Anesthesia Airway Planned: Natural Airway Monitors Used: Standard Monitors
[2024-03-02 11:26] VITALS: BMI 28.8
[2024-03-02] MEDS: Duovisc Viscoelastic System EACH 1 EACH (11:41)
[2024-03-02] MEDS: Lidocaine 1% Pres-Free 5 ML VIAL (11:41)
[2024-03-02] MEDS: Povidone-Iodine Ophth 30 ML BTL (11:43)
[2024-03-02] MEDS: Balanced Salt Soln.-PLUS 500 ML BAG OP (11:44)
[2024-03-02] MEDS: Prednisolone 1%, Moxifloxacin 0.5%, Bromfenac 0.09% 5.6ML BTL OD (11:45)
[2024-03-02] MEDS: Tetracaine 0.5% 4 ML BTL OD (11:46)
--- NOTE | 2024-03-02 12:09 | W.PM.DSUDISC ---
Date of service: 03/02/24 Discharge Plan Disposition Patient Disposition: Home Discharge Details Attending Provider: Gonzalo Espinoza Primary Care Provider: Destiny Lucas Home Meds and New Rx's Prescriptions: No Action acetaminophen [Tylenol Extra Strength] 500 mg tablet 500 mg PO Q6H PRN (Reason: pain) Qty: 90 0RF Myrbetriq 50 mg tablet extended release 24 hr 50 mg PO DAILY lorazepam 0.5 mg tablet 0.5 mg PO QHS PRN (DME) Dynamic Ankle Foot Orthosis See Rx Instructions .ROUTE .MEDSUPPLY Qty: 1 0RF Rx Instructions: Please fit for a dynamic ankle-foot orthosis to accommodate Mr. Corea's peroneal nerve palsy with foot drop. albuterol sulfate 90 mcg/actuation HFA aerosol inhaler 2 puff inhalation Q6H PRN (Reason: shortness of breath or wheezing) Qty: 8.5 12RF Trelegy Ellipta 100-62.5-25 mcg blister with device 1 inh IH .every other day Qty: 60 6RF Breztri Aerosphere 160-9-4.8 mcg/actuation HFA aerosol inhaler 2 inh inhalation BID Qty: 10.7 6RF Rx Instructions: 2 puffs twice daily Every other day, alternating with Trelegy one puff daily every other day, to the extent you are able to afford either Breztri or Trelegy. You should use either Trelegy or Breztri, as available. ipratropium-albuterol 0.5 mg-3 mg(2.5 mg base)/3 mL solution for nebulization 3 ml inhalation Q6H MDD 4 PRN (Reason: wheezing) Qty: 180 6RF Rx Instructions: Diagnosis: moderate COPD (GOLD 2 stage by PFTs) Discharge Instructions Stand Alone Forms: [facility] Post-Op CataractShannon (DSU) Discharge Orders Discharge Orders: Discharge Order (Routine); Ordered 03/02/24 Ordered By: Gonzalo Espinoza DS: Diagnosis Discharge Diagnosis (1) Cortical age-related cataract, right eye: Status: Resolved (2) Nuclear age-related cataract, right eye: Status: Resolved
[2024-03-02 12:10] VITALS: BP 140/74; PULSE 54; RESP 16; TEMP 36.5; O2SAT 98
--- NOTE | 2024-03-02 12:12 | W.PM.OP ---
Operative Note Operative Note PRE-OP DIAGNOSIS: Nuclear/cortical cataract, right eye POST-OP DIAGNOSIS: same PROCEDURE: Cataract extraction using phacoemulsification with intraocular lens implant, right eye SURGEON: Gonzalo Espinoza ANESTHESIA TYPE: Local By Surgeon and MAC Refer to Anesthesia Record ESTIMATED BLOOD LOSS: 0 PATHOLOGY: none sent COMPLICATIONS: None Patient was transported to: same day Patient's condition: stable Implants: Elkin Clareon [id number] Indications: Progressive decreased vision due to cataract, right eye Procedure Description: CATARACT SURGERY OPERATIVE REPORT PREOPERATIVE DIAGNOSIS: Nuclear/cortical cataract, right eye POSTOPERATIVE DIAGNOSIS: Same OPERATION: Cataract extraction using phacoemulsification with posterior chamber intraocular lens implant, right eye. IOL: IOL Sales Support Specialist/Model: Elkin Clareon [id number] IOL Power: + 22.5 diopters IOL Serial Number: [id number] Optic Diameter: 6.0mm Haptic/Overall Diameter: 13.0mm PHACO INFO: Elkin Centurion Vision System with OZil and Active Fluidics Cumulative Dispersed Energy (CDE): 13.09 seconds SURGEON: Gonzalo Espinoza MD, LAMBERT ANESTHESIA: Monitored Anesthesia Care (MAC), with local sub-tenon's anesthetic infiltration COMPLICATIONS: None SPECIMENS: None INDICATIONS FOR PROCEDURE: The patient is a 78-year-old gentleman with history of diminished visual acuity in his right eye secondary to the development of nuclear/cortical cataract. He is significantly symptomatic that he desires cataract surgery and attempt to improve and maximize his vision. See office notes for detailed information. The option of cataract surgery was offered to the patient and he wished to proceed. PROCEDURE: The correct surgical eye was identified and marked as the right eye and the pupil was dilated in the preoperative area using mydriatics and cycloplegics. The dilated pupil size was 5.5 mm. The patient elected to proceed without oral sedation. The patient was brought to the operating room where cardiopulmonary monitoring was instituted and surgical time-out was performed, confirming the correct operative eye and IOL power. Topical anesthesia was administered and ophthalmic povidone-iodine 5% was instilled into the conjunctival fornices. The blanche-ocular area was prepped with Betadine 10% solution and draped in the usual sterile fashion for intraocular surgery, including an aperture drape. A Tegaderm transparent film dressing was cut in half and used to cover the lashes and lid margins. Care was taken to sequester the lashes and lid margins under the Tegaderm dressing. A lid speculum was placed between the lids of the operative eye and the Elkin LuxOR Revalia operating microscope was maneuvered into position. Charli scissors were then used to make a conjunctival buttonhole approximately 6mm posterior to the limbus in the inferonasal quadrant. Blunt dissection was carried out to expose bare sclera, and a blunt-tipped sub-tenon?s anesthesia cannula was introduced and passed posteriorly along the globe where non-preserved plain lidocaine was injected into posterior sub-Tenon?s space. A sideport knife was used to make a paracentesis port. Intraocular phenylephrine/lidocaine was injected into the anterior chamber. The anterior chamber was then filled with viscoelastic. A keratome knife was used to construct a two--plane clear corneal tunnel extending 2.0mm into clear cornea. A flap was raised on the anterior capsule and capsulorhexis forceps were used to complete a continuous curvilinear capsulorhexis of 5.0 mm. Balanced salt solution was then used to perform cortical cleaving hydrodissection and nuclear hydrodelineation until the lens could be freely rotated within the capsular bag. The lens nucleus was then disassembled and removed within the capsular bag and iris plane using phacoemulsification. Residual cortical material was removed using the I/A handpiece. The posterior capsule was carefully polished to remove as much residual lens epithelial cells as safely possible. The capsular bag was then inflated and the anterior chamber deepened with cohesive viscoelastic. The lens implant described above was inserted into the capsular bag using the Elkin Autonome Injector. A Kuglen hook was used to dial the IOL into position. Residual viscoelastic was then removed first from posterior to the IOL, then from the anterior chamber using the I/A handpiece. The lens implant was noted to center nicely within the capsular bag. The incisions were stromally hydrated, and the anterior chamber was reformed using BSS. Then 0.5cc of moxifloxacin 1.0mg/ml were injected into the capsular bag and anterior chamber. The incisions were checked with a Weck spear and found to be secure. Several drops of ophthalmic povidone-iodine 5% were then applied to the eye followed by two drops of combination steroid/NSAID/antibiotic solution. The drapes were removed and a clear plastic protective eye shield was placed over the eye. The patient was then returned to Same Day Surgery in stable condition. Date of Procedure: 03/02/24
--- NOTE | 2024-03-02 12:50 | W.ANESPOSTOP ---
Postoperative Evaluation Date, Time and Location Date Performed: 03/02/24 Time Performed: 12:10 Patient Location: Day Surgery Unit Vital Signs Most Recent Imported Vital Signs: Most Recent Vital Signs Temp Pulse Resp BP Pulse Ox 36.5 C 54 L 16 140/74 98 03/02/24 12:10 03/02/24 12:10 03/02/24 12:10 03/02/24 12:10 03/02/24 12:10 Pain Score Most Recent Pain Score: Most Recent Pain Score Pain Level 0 03/02/24 12:10 Assessment Mental Status: Awake (Alert & Oriented to Patient Baseline) Airway and Respiratory Function: Patent airway with normal (patient baseline) respiratory exam Cardiovascular Function: Hemodynamically Stable Hydration Status: Adequately Hydrated Nausea & Vomiting: No Nausea or Vomiting Pain: Pt. Denies Any Pain Peripheral Nerve Block: Patient did not receive a nerve block
== END 2024-03-02 12:30 | disposition home or self-care (01) ==
LOC: SUR 09:58
PROVIDERS: PCP Physician Assistant Medical; Visit Provider Ophthalmology
PROC: (CPT 66984; principal; 2024-03-02 13:30)
DX: H25.011 Cortical age-related cataract, right eye (principal); H25.11 Age-related nuclear cataract, right eye
CPT/HCPCS: 66984; 00123; V2632; J2003

== ENCOUNTER 2024-03-23 08:55 | Day surgery (SDC) | payer MEDICARE, BC, SELFPAY ==
--- NOTE | 2024-03-22 20:07 | W.PREOPHP ---
Assessment and Plan Assessment and plan (1) Cortical age-related cataract, left eye: Status: Acute Assessment and plan: Assessment: Visually significant cataract, left eye. Plan: Cataract extraction with intraocular lens implant, left eye. (2) Nuclear age-related cataract, left eye: Status: Acute Assessment and plan: Assessment: Visually significant cataract, left eye. Plan: Cataract extraction with intraocular lens implant, left eye. History of Present Illness History of Present Illness Chief Complaint: Progressive decreased vision, left eye Narrative: The patient is a 77-year-old male who originally presented with complaints of progressive decreased vision in both eyes at both distance and near. He has a history of maculopathy/vitelliform dystrophy. He noted significant diminished visual acuity with vision of 20/100 in the right eye, 20/70 in the left eye and the presence of moderate cataracts. The option of cataract surgery was offered to the patient and he wished to proceed. He has already undergone cataract surgery in the right eye and is doing well postoperatively. He now presents for cataract surgery in the left eye. He has a history of pre-existing astigmatism, right eye worse than left, and understands that postoperative visual acuity will be limited by the presence of his a stigmatism. Review of Systems All systems reviewed & are unremarkable except as noted in HPI and below PFSH All Active Problems Cortical age-related cataract, left eye (Acute) Nuclear age-related cataract, left eye (Acute) Pulmonary nodules/lesions, multiple (Acute) Current every day cannabis vapor product user (Acute) Stage 2 moderate COPD by GOLD classification (Acute) Right clavicle fracture (Acute 08/04/23) H/O aortic valve replacement (Acute) Thyroid nodule (Acute) Hearing loss (Acute) Enlarged prostate (Acute) Common peroneal neuropathy (Acute) Acute low back pain (Acute) Umbilical hernia (Acute) Tendinitis of left rotator cuff (Acute) Right rotator cuff tendinitis (Acute) Septic prepatellar bursitis of right knee (Acute) Insomnia (Acute) 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) Carpal tunnel syndrome of right wrist (Acute) Neuropathic pain (Acute) Lumbar radiculopathy (Acute) Peripheral neuropathy (Acute) Right foot drop (Acute) Right peroneal nerve palsy (Acute) Osteoarthritis of right knee (Acute) Durolane injection: 08/16/2019, 02/21/2020; 09/01/20; 03/09/21; 09/14/21; 04/23/22; 10/22/22 Steroid: 01/13/23; 07/28/23; 02/13/24 Unilateral primary osteoarthritis, left knee (Acute) Steroid injection: 04/09/2019; 01/13/23; 07/28/23; 02/13/24 Durolane injection: 10/22/22; 04/23/22; 01/15/21;07/07/20; 11/01/2019; 05/11/2019 Medical History Anemia Transient visual loss Injury of right peroneal nerve Former smoker Aortic valve stenosis, nonrheumatic History of cardioversion Hx Afib s/p heart valve surgery which required cardioversion. 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) Did not require intervention; occurred during heart surgery Surgical History Hx of umbilical hernia repair (~04/2023) H/O arthroscopy of hip Status post total hip replacement, right (~11/2020) History of colonoscopy Status post heart valve replacement (01/10/14) History of aortic stenosis Ascending aorta aneurysm Family History Paternal Grandmother Diabetes Father Heart disease Malignant tumor of stomach Social History Smoking/Tobacco Use Status: Former Tobacco Use Quit Date: 04/11/07 Pack-years: 44 Smoking risk assessment performed?: Yes Alcohol Intake: current Alcohol Intake frequency: a few times a month Alcohol type: wine Drug use: Never Substance use type: does not use Household members: other Details: ex Housing: apartment Number of Children: 3 number of grandchildren: 9 Pets and animals: No Current gender identity: male What is your relationship status?: Panel score (0-1 are the most socially isolated patients): 0 Seatbelt use: always Do you feel safe at home: Yes Do you feel safe in your relationship?: Yes Meds Allergies and Home Medications Allergies Allergy/AdvReac Type Severity Reaction Status Date / Time No Known Allergies Allergy Verified 03/23/24 09:19 cats Allergy Intermediate Other (See Uncoded 03/23/24 09:19 Comment) Home Medications ?Medication ?Instructions ?Recorded ?Confirmed ?Type lorazepam 0.5 mg tablet 0.5 mg PO QHS PRN 04/06/19 03/20/24 History acetaminophen 500 mg tablet 500 mg PO Q6H PRN pain #90 tabs 01/30/20 03/20/24 Rx (Tylenol Extra Strength) Dynamic Ankle Foot Orthosis #1 ea 07/29/20 02/16/24 Rx mirabegron 50 mg tablet,extended 50 mg PO DAILY 08/24/22 03/23/24 History release 24 hr (Myrbetriq) albuterol sulfate 90 mcg/actuation 2 puff inhalation Q6H PRN 12/28/23 03/23/24 Rx aerosol inhaler shortness of breath or wheezing #8.5 grams budesonide 160 mcg-glycopyr 9 2 inh inhalation BID #10.7 grams 12/28/23 03/23/24 Rx mcg-formot 4.8 mcg/actuation HFA inhaler (Breztri Aerosphere) fluticasone fur. 100 mcg-umeclid 1 inh inhalation .every other day 12/28/23 03/23/24 Rx 62.5 mcg-vilant 25 mcg #60 ea inhalat.powder (Trelegy Ellipta) ipratropium 0.5 mg-albuterol 3 mg 3 ml inhalation Q6H PRN wheezing 12/29/23 03/20/24 Rx (2.5 mg base)/3 mL nebulization #180 mL soln Exam Cardio Rate: regular rate Rhythm: regular rhythm
[2024-03-23 09:20] VITALS: BP 131/78; PULSE 60; RESP 18; TEMP 36.1; O2SAT 99
[2024-03-23] MEDS: Tropicam./Phenyleph. (1/2.5%) 5 ML BTL OS ×3 (09:26→09:36)
--- NOTE | 2024-03-23 09:40 | ANES.PREOP_ITS ---
General Info Date of Service Date Performed: 03/23/24 Height: 5 ft 9 in Weight: 90.6 kg Body Mass Index (BMI): 29.5 Surgical Procedure: Operation Date: 03/23/24 11:40 Proposed Procedure Side Surgeon p Cataract Extraction with IOL Implant Left Gonzalo Espinoza MD Meds Allergies and Home Medications Allergies Allergy/AdvReac Type Severity Reaction Status Date / Time No Known Allergies Allergy Verified 03/23/24 09:19 cats Allergy Intermediate Other (See Uncoded 03/23/24 09:19 Comment) Home Medication ?Medication ?Instructions ?Recorded lorazepam 0.5 mg tablet 0.5 mg PO QHS PRN 04/06/19 acetaminophen 500 mg tablet 500 mg PO Q6H PRN pain #90 tabs 01/30/20 (Tylenol Extra Strength) Dynamic Ankle Foot Orthosis #1 ea 07/29/20 mirabegron 50 mg tablet,extended 50 mg PO DAILY 08/24/22 release 24 hr (Myrbetriq) albuterol sulfate 90 mcg/actuation 2 puff inhalation Q6H PRN 12/28/23 aerosol inhaler shortness of breath or wheezing #8.5 grams budesonide 160 mcg-glycopyr 9 2 inh inhalation BID #10.7 grams 12/28/23 mcg-formot 4.8 mcg/actuation HFA inhaler (Breztri Aerosphere) fluticasone fur. 100 mcg-umeclid 1 inh inhalation .every other day 12/28/23 62.5 mcg-vilant 25 mcg #60 ea inhalat.powder (Trelegy Ellipta) ipratropium 0.5 mg-albuterol 3 mg 3 ml inhalation Q6H PRN wheezing 12/29/23 (2.5 mg base)/3 mL nebulization #180 mL soln Current Visit Medications: Current Medications Generic Name Dose Route Start Last Admin Trade Name Freq PRN Reason Stop Dose Admin Acetaminophen 1,000 mg 03/23/24 06:00 Acetaminophen 500 Mg Tab PO 04/22/24 05:59 Q4H PRN PRN Balanced Salt Solution 500 ml 03/23/24 06:00 Balanced Salt Soln.-Plus 500 Ml Bag OP 04/22/24 05:59 DIRECTED ROBERT Miscellaneous Medication 0 ml 03/23/24 06:00 Prednisolone 1%, Moxifloxacin 0.5%, Bromfenac 0.09% 5.6ml Btl OS 04/22/24 05:59 DIRECTED [facility] Miscellaneous Medication 0 ml 03/23/24 06:00 03/23/24 09:36 Tropicam./Phenyleph. (1/2.5%) 5 Ml Btl OS 04/22/24 05:59 1 drp DIRECTED ROBERT Administration Tetracaine HCl 0 ml 03/23/24 06:00 Tetracaine 0.5% 4 Ml Btl OS 04/22/24 05:59 DIRECTED [facility] PFSH Active Problems Active Problems: Problem Status Onset Code Cortical age-related cataract, left eye Acute H25.012 Nuclear age-related cataract, left eye Acute H25.12 Cortical age-related cataract, right eye Resolved H25.011 Nuclear age-related cataract, right eye Resolved H25.11 Pulmonary nodules/lesions, multiple Acute R91.8 Current every day cannabis vapor product user Acute F12.90 Stage 2 moderate COPD by GOLD classification Acute J44.9 Right clavicle fracture Acute 08/04/23 S42.001A H/O aortic valve replacement Acute Z95.2 Thyroid nodule Acute E04.1 Hearing loss Acute H91.90 Enlarged prostate Acute N40.0 Common peroneal neuropathy Acute G57.30 Acute low back pain Acute M54.50 Umbilical hernia Acute K42.9 Tendinitis of left rotator cuff Acute M75.82 Right rotator cuff tendinitis Acute M75.81 Septic prepatellar bursitis of right knee Acute M71.161 Insomnia Acute G47.00 Ulnar neuropathy at elbow of left upper extremity Acute G56.22 Carpal tunnel syndrome of right wrist Acute G56.01 Neuropathic pain Acute M79.2 Lumbar radiculopathy Acute M54.16 Peripheral neuropathy Acute G62.9 Right foot drop Acute M21.371 Right peroneal nerve palsy Acute G57.31 Osteoarthritis of right knee Acute M17.11 Unilateral primary osteoarthritis, left knee Acute M17.12 Medical History Medical History Anemia Transient visual loss Injury of right peroneal nerve Former smoker Aortic valve stenosis, nonrheumatic History of cardioversion Hx Afib s/p heart valve surgery which required cardioversion. 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) Did not require intervention; occurred during heart surgery Medical History Comments:: pt reports last seizure 6 months ago Surgical History Surgical History Hx of umbilical hernia repair (~04/2023) H/O arthroscopy of hip Status post total hip replacement, right (~11/2020) History of colonoscopy Status post heart valve replacement (01/10/14) History of aortic stenosis Ascending aorta aneurysm Tobacco Smoking/Tobacco Use Status: Former Tobacco Use Alcohol Alcohol Intake: current Alcohol intake frequency: a few times a month Alcohol type: wine Substance Use Substance use: Never Substance use type: does not use Vital Signs and Lab Results Vital Signs Most Recent Vital Signs in EMR: Most Recent Vital Signs Temp Pulse Resp BP Pulse Ox 36.1 C L 60 18 131/78 99 03/23/24 09:20 03/23/24 09:20 03/23/24 09:20 03/23/24 09:20 03/23/24 09:20 Lab Results Blood Type / Crossmatch: No Data to Display Complete Blood Count: No Data to Display Complete Metabolic Panel: No Data to Display Liver Function Panel: No Data to Display Coagulation Panel: No Data to Display Cardiac Panel: No Data to Display Arterial Blood Gas: No Data to Display Venous Blood Gas: No Data to Display Pancreas Panel: No Data to Display Thyroid Panel: No Data to Display Infectious Disease: No Data to Display Blood Cultures: No Data to Display Toxicology Panel: No Data to Display Imaging and Studies Imaging and Studies Study information below may be from another EMR and interpreted by another provider. Please see original notes in EMR for more complete details. EKG Summary: EKG PATIENT NAME: Riccardo Corea UNIT #: [id number] ORDERING PROVIDER: Kerrie Koroma M.D. PRIMARY CARE PROVIDER: DESTINY GOMEZ DATE/TIME OF SERVICE: 09/23/22 1314 : 1945 PERFORMING LOCATION: .CARD APPROVED REPORT Exam: Resting ECG Reason for Exam: aortic valve stenosis Patient Location: O HR:60 bpm ECG Measurements Heart Rate [address] 195 P 43 QRSd 98 QRS 56 QT 429 T61 QTc 429 Conclusion Sinus rhythm...normal P axis, V-rate 50- 99 Borderline low voltage, extremity leads...all extremity leads <0.6mV <Electronically signed by KERRIE KOROMA MD in OV> E-Sign Date: 09/23/22 E-Sign Time: 1427 Echocardiogram Summary: Patient Name: Riccardo Corea Unit #: [id number] Loc: Ordering Provider: Renetta Fatima DO Status: REG [facility] Primary Care Provider: Destiny Lucas Date of Exam: 08/17/22 Sex: M Admission Date: 08/17/22 : 1945 Age: 76 APPROVED REPORT EXAM: Comprehensive 2D, Doppler, and color-flow Echocardiogram Patient Location: Out-Patient [employer] Tower Operator: Jose De Jesus Rush RDMS, [place] Indications: H/X of aortic valve replacement, Bioprosthetic , ascending aorta dilation Other Information Study Quality: Adequate Conclusion Normal left ventricular wall thickness and chamber size. Ejection fraction is 55%. Wall motion is normal Normal right ventricular size and systolic function Both atria are normal in size There is a bioprosthetic aortic valve replacement. Mean gradient is 10 mmHg. There is no aortic regurgitation Normal mitral valve with moderate regurgitation Normal tricuspid valve with mild regurgitation Wall motion Left Ventricle The left ventricle is normal size. The left ventricular systolic function is normal. The left ventricular ejection fraction is within the normal range. There is normal left ventricular wall thickness. There is normal LV segmental wall motion. There is no ventricular septal defect visualized. LVEF is 55-60%. Right Ventricle The right ventricle is normal size. Right ventricular systolic function is grossly normal. Atria The left atrium size is normal. The right atrium size is normal. The interatrial septum is intact with no evidence for an atrial septal defect. Aortic Valve Aortic valve is trileaflet. No aortic regurgitation is present. Bioprosthetic aortic valve is present. Mitral Valve The mitral valve is normal in structure. No evidence of mitral valve stenosis. Moderate mitral regurgitation. Tricuspid Valve The tricuspid valve is normal in structure. There is no tricuspid valve stenosis. Mild tricuspid regurgitation. Pulmonic Valve The pulmonary valve is normal in structure. There is no pulmonic valvular stenosis. There is no pulmonic valvular regurgitation. Great Vessels The aortic root is normal in size. Aortic arch is not well visualized. Ascending aorta is not well visualized. IVC is normal in size and collapses >50% with inspiration. Pericardium There is no pericardial effusion. 2D Dimensions IVSD d PLAX 0.70 cm M: 0.6-1.2LV Vol A2C d MOD 140.2 mL LVPW d PLAX 0.78 cm M: 0.6 - 1.2LV Vol A4C d MOD 133.1 mL LVID d PLAX 4.97 cm M: 4.2 - 5.8LA vol/ BSA A2C s A-L49.4 mL/m2 LVDs 3.55 cm M: 2.5 - 4.0LA vol/ BSA A4C s A-L33.3 mL/m2 Ao Root d 2.81 cm M: 3.1 - 3.7LA Vol/ BSA Biplane s A-L 43.8 mL/m2 LV EF Teichholz 53.5 %LA Area A4C s MOD 20.94 cm2 LVEF (Shaw's)55.82 % M: 52 - 72LA Area A2C s MOD 27.56 cm2 LV Mvazui984.59 mL M: 62 - 150LV EF A4C MOD 54.8 % LV Volume Index50.04 mL/m2 M: 34 - 74LV EF A2C MOD 54.9 % LV Vol Biplane MOD 139.6 mLLV EF Biplane MOD 55.8 % FS27.65 %SV77.91 mL SV Index37.72 mL/m2 M-Mode TAPSE 2.54 cm (M/F) >1.7 LV Diastology MV E' medial0.104 (>0.07 m/s)E/A Ratio 1.6 LV E/e MED8.30 (<14)MV E Vmax 0.86 (0.4-1.3 m/s) MV E' lateral0.126 (>0.1 m/s)MV A Vmax 0.55 (0.4-1.3 m/s) LV E/e LAT6.85 (<14)MV E/A Ratio 1.53 MV E/E' medial 8.31 MV E/E' lateral6.86 Aortic Valve LVOT Area4.27 cm2AoV Area Vmax2.26 cm2 LVOT Vmax 0.93 m/sAoV Area/ BSA (Vmax)1.09 cm2/m2 LVOT Mean Wisam.0.68 m/sAVA Mean Wisam.2.33 cm2 LVOT Peak Grad 3.5 mmHgAVA Mean Wisam. Index1.13 cm2/m2 LVOT Mean Grad 2.2 mmHg LVOT VTI0.257 m LVOT Diam s 2.30 cm AoV Vmax2.12 m/s Velocity Ratio 0.44 AoV Mean Wisam.1.48 m/s AoV Peak Grad18.5 mmHg LVOT SV 124.24 mL AoV Mean Grad10.0 mmHg AoV VTI0.533 m AoV Area VTI2.33 cm2 AoV Area/ BSA (VTI)1.13 cm/m2 Mitral Valve MV DT 213 (160-240 msec)MR PISA Radius 0.58 cm MV PHT62 msecMR Aliasing Velocity 0.35 m/s MV Area PHT 3.55 cm2MR PISA 2.14 cm2 MV VTI 0.312 m MV Area VTI 3.98 (4.0-6.0 cm2) Pulmonary Valve PV Vmax 1.02 (0.5-1.5 m/s)RVOT Peak Gr.0.49 mmHg PV Peak Grad 4.1 mmHgRVOT Mean Gr.0.30 mmHg PV Mean Grad 2.1 mmHgRVOT VTI0.093 m PV VTI 0.188 mRVOT Vmax 0.35 m/s Tricuspid Valve TR Peak Grad 25.8 mmHgTR Vmax 2.54 m/s RA Pressure 3.00 mmHg RVSP (TR) 28.9 mmHg Ordered By: Renetta Fatima DO CC: PATRICIA FRAGOSO MD Dictated By: Kerrie Koroma M.D. 08/17/22 1711 <Electronically signed by Kerrie Koroma M.D. in OV> 08/19/22 0895 Transcribed By: Kerrie Koroma MD This is privileged, confidential information intended only for the provider named. Any use or distribution by any person other than this provider is strictly prohibited. If you receive this report in error, please notify us immediately at [phone] and return the original report to us at the address above. Thank-you. Anesthesia Assessment and Plan Anesthesia History Personal History: No History of Anesthesia Complications Family History: No Family History of Anesthesia Complications Exercise Tolerance Exercise Tolerance: Metabolic Equivalents>4 Pertinent Negatives Pertinent Negatives: No Major Cardiovascular Symptoms or Complaints and No Major Pulmonary Symptoms or Complaints Cardiac & Pulmonary Exam Cardiac Exam: Normal S1/S2 Heart Sounds Pulmonary Exam: Clear Bilateral Breath Sounds Implantable Cardiac Device Does patient have a Pacemaker or an ICD?: No Airway Exam Known Difficult Airway: No Mallampati Class: 2 Mouth Opening: Narrow (< 3cm) Thyromental Distance: Less than 3 cm Neck Range of Motion: Limited ROM Neck Circumference: Normal Teeth Condition: Normal Dentition ASA Classification ASA Score: ASA 3 Emergency Case?: No NPO Status NPO Status: NPO Clears >2 hours, Solids >8 hours Anesthesia Plan Resuscitation Status: Full Code Anesthesia Technique: MAC Anesthesia Airway Planned: Natural Airway Monitors Used: Standard Monitors
[2024-03-23 10:24] VITALS: BMI 29.5
[2024-03-23] MEDS: Tetracaine 0.5% 4 ML BTL OS (11:19)
[2024-03-23] MEDS: Duovisc Viscoelastic System EACH 1 EACH (11:26)
[2024-03-23] MEDS: Lidocaine 1% Pres-Free 5 ML VIAL (11:27)
[2024-03-23] MEDS: Phenylephrine/Lidocaine (15/10) MG/ML 1 ML VIAL (11:28)
[2024-03-23] MEDS: Povidone-Iodine Ophth 30 ML BTL (11:29)
[2024-03-23] MEDS: Balanced Salt Soln.-PLUS 500 ML BAG OP (11:30)
[2024-03-23] MEDS: Prednisolone 1%, Moxifloxacin 0.5%, Bromfenac 0.09% 5.6ML BTL OS (11:31)
[2024-03-23 11:52] VITALS: BP 149/80; PULSE 56; RESP 18; TEMP 36.7; O2SAT 98
--- NOTE | 2024-03-23 11:52 | ROE_ITS ---
Operative Note Operative Note PRE-OP DIAGNOSIS: Nuclear/cortical cataract, left eye POST-OP DIAGNOSIS: same PROCEDURE: Cataract extraction using phacoemulsification with intraocular lens implant, left eye SURGEON: Gonzalo Espinoza ANESTHESIA TYPE: Local By Surgeon and MAC Refer to Anesthesia Record PATHOLOGY: none sent COMPLICATIONS: None Patient was transported to: same day Patient's condition: stable Implants: Elkin Clareon [id number] Indications: Progressive decreased vision due to cataract, left eye Procedure Description: CATARACT SURGERY OPERATIVE REPORT PREOPERATIVE DIAGNOSIS: Nuclear/cortical cataract, left eye POSTOPERATIVE DIAGNOSIS: Same OPERATION: Cataract extraction using phacoemulsification with posterior chamber intraocular lens implant, left eye. IOL: IOL Senior Marketing Specialist/Model: Elkin Clareon [id number] IOL Power: + 22.5 diopters IOL Serial Number: [id number] Optic Diameter: 6.0mm Haptic/Overall Diameter: 13.0mm PHACO INFO: Elkin Centurion Vision System with OZil and Active Fluidics Cumulative Dispersed Energy (CDE): 6.72 seconds SURGEON: Gonzalo Espinoza MD, LAMBERT ANESTHESIA: Monitored Anesthesia Care (MAC), with local sub-tenon's anesthetic infiltration COMPLICATIONS: None SPECIMENS: None INDICATIONS FOR PROCEDURE: The patient is a 78-year-old male with history of diminished visual acuity in both eyes secondary to the development of bilateral nuclear/cortical cataract. He has already undergone cataract surgery in the right eye and is doing well postoperatively. He now presents for cataract surgery in the left eye. See office notes for detailed information. PROCEDURE: The correct surgical eye was identified and marked as the left eye and the pupil was dilated in the preoperative area using mydriatics and cycloplegics. The dilated pupil size was 6.0 mm. The patient elected to proceed without oral sedation. The patient was brought to the operating room where cardiopulmonary monitoring was instituted and surgical time-out was performed, confirming the correct operative eye and IOL power. Topical anesthesia was administered and ophthalmic povidone-iodine 5% was instilled into the conjunctival fornices. The blanche-ocular area was prepped with Betadine 10% solution and draped in the usual sterile fashion for intraocular surgery, including an aperture drape. A Tegaderm transparent film dressing was cut in half and used to cover the lashes and lid margins. Care was taken to sequester the lashes and lid margins under the Tegaderm dressing. A lid speculum was placed between the lids of the operative eye and the Elkin LuxOR Revalia operating microscope was maneuvered into position. Charli scissors were then used to make a conjunctival buttonhole approximately 6mm posterior to the limbus in the inferonasal quadrant. Blunt dissection was carried out to expose bare sclera, and a blunt-tipped sub-tenon?s anesthesia cannula was introduced and passed posteriorly along the globe where non- preserved plain lidocaine was injected into posterior sub-Tenon?s space. A sideport knife was used to make a paracentesis port. Intraocular phenylephrine/lidocaine was injected into the anterior chamber. The anterior chamber was then filled with viscoelastic. A keratome knife was used construct a two-plane clear corneal tunnel extending 2.0mm into clear cornea. A flap was raised on the anterior capsule and capsulorhexis forceps were used to complete a continuous curvilinear capsulorhexis of 5.0 mm. Balanced salt solution was then used to perform cortical cleaving hydrodissection and nuclear hydrodelineation until the lens could be freely rotated within the capsular bag. The lens nucleus was then disassembled and removed within the capsular bag and iris plane using phacoemulsification. Residual cortical material was removed using the irrigation/aspiration handpiece. The posterior capsule was carefully polished to remove as much residual lens epithelial cells as safely possible. The capsular bag was then inflated and the anterior chamber deepened with viscoelastic. The lens implant described above was inserted into the capsular bag using the Elkin Autonome Injector. A Kuglen hook was used to dial the IOL into position. Residual viscoelastic was then removed first from posterior to the IOL, then from the anterior chamber using the I/A handpiece. The lens implant was noted to center nicely within the capsular bag. The incisions were stromally hydrated, and the anterior chamber was reformed using BSS. Then 0.5cc of moxifloxacin 1.0mg/ml were injected into the capsular bag and anterior chamber. The incisions were checked with a Weck spear and found to be secure. Several drops of ophthalmic povidone-iodine 5% were then applied to the eye followed by two drops of combination steroid/NSAID/antibiotic solution. The drapes were removed and a clear plastic protective eye shield was placed over the eye. The patient was then returned to Same Day Surgery in stable condition. Date of Procedure: 03/23/24
--- NOTE | 2024-03-23 11:52 | W.PM.DSUDISC ---
Date of service: 03/23/24 Discharge Plan Disposition Patient Disposition: Home Discharge Details Attending Provider: Gonzalo Espinoza Primary Care Provider: Destiny Lucas Home Meds and New Rx's Prescriptions: No Action acetaminophen [Tylenol Extra Strength] 500 mg tablet 500 mg PO Q6H PRN (Reason: pain) Qty: 90 0RF Myrbetriq 50 mg tablet extended release 24 hr 50 mg PO DAILY lorazepam 0.5 mg tablet 0.5 mg PO QHS PRN (DME) Dynamic Ankle Foot Orthosis See Rx Instructions .ROUTE .MEDSUPPLY Qty: 1 0RF Rx Instructions: Please fit for a dynamic ankle-foot orthosis to accommodate Mr. Corea's peroneal nerve palsy with foot drop. albuterol sulfate 90 mcg/actuation HFA aerosol inhaler 2 puff inhalation Q6H PRN (Reason: shortness of breath or wheezing) Qty: 8.5 12RF Trelegy Ellipta 100-62.5-25 mcg blister with device 1 inh IH .every other day Qty: 60 6RF Breztri Aerosphere 160-9-4.8 mcg/actuation HFA aerosol inhaler 2 inh inhalation BID Qty: 10.7 6RF Rx Instructions: 2 puffs twice daily Every other day, alternating with Trelegy one puff daily every other day, to the extent you are able to afford either Breztri or Trelegy. You should use either Trelegy or Breztri, as available. ipratropium-albuterol 0.5 mg-3 mg(2.5 mg base)/3 mL solution for nebulization 3 ml inhalation Q6H MDD 4 PRN (Reason: wheezing) Qty: 180 6RF Rx Instructions: Diagnosis: moderate COPD (GOLD 2 stage by PFTs) Discharge Instructions Stand Alone Forms: [facility] Post-Op CataractShannon (DSU) Discharge Orders Discharge Orders: Discharge Order (Routine); Ordered 03/23/24 Ordered By: Gonzalo Espinoza DS: Diagnosis Discharge Diagnosis (1) Cortical age-related cataract, left eye: Status: Resolved (2) Nuclear age-related cataract, left eye: Status: Resolved
--- NOTE | 2024-03-23 12:30 | W.ANESPOSTOP ---
Postoperative Evaluation Date, Time and Location Date Performed: 03/23/24 Time Performed: 11:52 Patient Location: Day Surgery Unit Vital Signs Most Recent Imported Vital Signs: Most Recent Vital Signs Temp Pulse Resp BP Pulse Ox 36.7 C 56 L 18 149/80 H 98 03/23/24 11:52 03/23/24 11:52 03/23/24 11:52 03/23/24 11:52 03/23/24 11:52 Pain Score Most Recent Pain Score: Most Recent Pain Score Pain Level 0 03/23/24 11:52 Assessment Mental Status: Awake (Alert & Oriented to Patient Baseline) Airway and Respiratory Function: Patent airway with normal (patient baseline) respiratory exam Cardiovascular Function: Hemodynamically Stable Hydration Status: Adequately Hydrated Nausea & Vomiting: No Nausea or Vomiting Pain: Pt. Denies Any Pain Peripheral Nerve Block: Patient did not receive a nerve block
== END 2024-03-23 12:23 | disposition home or self-care (01) ==
LOC: SUR 08:56
PROVIDERS: PCP Physician Assistant Medical; Visit Provider Ophthalmology
PROC: (CPT 66984; principal; 2024-03-23 11:30)
DX: H25.012 Cortical age-related cataract, left eye (principal); H25.12 Age-related nuclear cataract, left eye; Z98.41 Cataract extraction status, right eye
CPT/HCPCS: 66984; 00123; V2632; J2003

== ENCOUNTER → 2024-05-03 09:44 | Outpatient (BNVA) | payer MEDICARE, BC, SELFPAY | PROVIDERS: PCP Physician Assistant Medical; Referring Provider Physician Assistant Medical; Visit Provider Physician Assistant Surgical | DX: J44.9 Chronic obstructive pulmonary disease, unspecified (principal) | CPT/HCPCS: 99214 ==

== ENCOUNTER → 2024-05-14 09:58 | Outpatient (BNVA) | payer MEDICARE, BC, SELFPAY | PROVIDERS: PCP Physician Assistant Medical; Referring Provider Physician Assistant Medical; Visit Provider Student in an Organized Health Care Education/Training Program | DX: M17.11 Unilateral primary osteoarthritis, right knee (principal); M17.12 Unilateral primary osteoarthritis, left knee | CPT/HCPCS: 20610; 99213; J1010 ==

== ENCOUNTER 2024-06-28 01:06 | Outpatient (CLI) | payer MEDICARE, BC, SELFPAY ==
--- NOTE | 2024-06-28 13:00 | DI.US_ITS ---
APPROVED REPORT EXAM: Comprehensive 2D, Doppler, and color-flow Echocardiogram Patient Location: Out-Patient Metal Hanging Helper: Jose De Jesus Rush RDCS (AE) Indications: Follow up AVR Other Information Study Quality: Fair Conclusion Normal left ventricular wall thickness and chamber size. Ejection fraction is 60%. Wall motion is n ormal Normal right ventricular size and function Both atria are moderately enlarged There is a bioprosthetic aortic valve. Mean gradient is 14 mmHg. There is no aortic regurgitation Mitral annular calcification, mild mitral regurgitation Estimated right ventricular systolic pressure is 28 mmHg Wall motion Left Ventricle The left ventricle is normal size. The left ventricular systolic function is normal. The left ventric ular ejection fraction is within the normal range. There is normal left ventricular wall thickness. T here is normal LV segmental wall motion. There is no ventricular septal defect visualized. LVEF is 60 %. Right Ventricle The right ventricle is normal size. The right ventricular systolic function is normal. Atria Left atrium is moderately dilated. Right atrium is moderately dilated. The interatrial septum is inta ct with no evidence for an atrial septal defect. Aortic Valve Bioprosthetic aortic valve is present. Mean gradient is 14 mmHg No aortic regurgitation is present. Mitral Valve The mitral valve is normal in structure. There is mitral annular calcification. No evidence of mitral valve stenosis. Mild mitral regurgitation. Tricuspid Valve The tricuspid valve is normal in structure. There is no tricuspid valve stenosis. Mild tricuspid regu rgitation. The RVSP is 28.5 mmHg. Pulmonic Valve The pulmonary valve is normal in structure. There is no pulmonic valvular stenosis. Mild pulmonic reg urgitation. Great Vessels The aortic root is normal in size. The ascending aorta is normal in size. IVC is normal in size and c ollapses >50% with inspiration. Pericardium There is no pericardial effusion. 2D Dimensions IVSD d PLAX 0.86 cm M: 0.6-1.2 Ao Root d 2.51 cm M: 3.1 - 3.7 LVPW d PLAX 0.92 cm M: 0.6 - 1.2 Ao Asc Diam d 3.14 cm M: 2.6 - 3.4 LVID d PLAX 5.72 cm M: 4.2 - 5.8 LVDs 3.88 cm M: 2.5 - 4.0 LV EF Teichholz 59.6 % FS 32.14 % LV EDV (Teich) 161.2 mL LV ESV (Teich) 65.1 mL Stroke Vol Index (Teich) 48.04 M-Mode TAPSE 2.24 cm (M/F) >1.7 Auto EF LV EDV A4C 123.5 mL LV EDV A2C 126.5 mL LV EDV BP 128.1 mL LV ESV A4C 48.8 mL LV ESV A2C 50.0 mL LV ESV BP 49.6 mL LVEF(%) A4C 60.5 % LVEF(%) A2C 60.5 % LVEF(%) BP 61.3 % LV SV A4C 74.7 ml LV SV A2C 76.5 ml LV SV BP 78.5 ml LV CO A4C 4.5 L/min LV CO A2C 4.6 L/min LV CO BP 4.5 L/min HR A4C 59.61 BPM HR A2C 59.70 BPM LV EDV Index (BP) LA Volume LA Length A4C 4.7 cm LA Length A2C 5.4 cm LA Area A4C s 18.73 cm2 LA Area A2C s 20.26 cm2 LA Vol A4C A-L 63.06 mL LA Vol A2C A-L 64.12 mL LA Vol Biplane A-L 68.2 mL LA Vol/BSA A4C A-L LA Vol/BSA A2C A-L LA Vol/BSA BP A-L 34.1 mL/m2 LA Vol A4C MOD 59.5 mL LA Vol A2C MOD 57.4 mL LA Vol BP MOD 61.5 mL RA Volume RA Area A4C 15.1 cm2 RA ESV A4C (A-L) 38.3mL RA Vol/BSA A4C A-L RA Length A4C 5.0 cm RA ESV A4C (MOD) 35.1mL LV Diastology MV E' medial 0.070 (>0.07 m/s) MV E Vmax 0.81 (0.4-1.3 m/s) MV E/E' MED 11.61 (<14) MV A Vmax 0.75 (0.4-1.3 m/s) MV E' lateral 0.097 (>0.1 m/s) E/A Ratio 1.1 MV E/E' LAT 8.31 (<14) MV E' Average 0.083 m/s MV E/E'(average) 9.68 Aortic Valve AoV Vmax 2.62 m/s LVOT Vmax 1.08 m/s AoV Peak Grad 27.5 mmHg LVOT Peak Grad 4.7 mmHg AoV Area (Vmax) 1.40 cm2 LVOT VTI 0.259 m AoV VTI 0.571 m LVOT Mean Grad 2.7 mmHg AoV Mean Wisam. 1.79 m/s LVOT SV 87.29 mL AoV Mean Grad 14.7 mmHg LVOT Diam s 2.05 cm AoV Area (VTI) 1.53 cm2 AV Regurg Peak Gr. 27.45 mmHg Velocity Ratio 0.41 Mitral Valve MV DT 222 (160-240 msec) MV Vmax TIPS 0.79 m/s MV Mean Grad 0.9 (<2mmHg) MV VTI 0.267 m Pulmonary Valve PV Vmax 0.84 (0.5-1.5 m/s) RVOT Vmax 0.55 m/s PV Peak Grad 2.8 mmHg RVOT Peak Gr. 1.2 mmHg PV Mean Wisam 0.50 m/s RVOT VTI 0.116 m PV Mean Grad 1.2 mmHg RVOT Mean Gr. 0.8 mmHg Tricuspid Valve RA Pressure 3.00 mmHg TR Vmax 2.53 m/s TV S' 0.16 m/s TR Peak Grad 25.5 mmHg RVSP (TR) 28.5 mmHg
== END 2024-06-28 01:26 ==
LOC: DI 01:06
PROVIDERS: PCP Physician Assistant Medical; Visit Provider Internal Medicine Cardiovascular Disease
DX: Z95.2 Presence of prosthetic heart valve (principal); I34.0 Nonrheumatic mitral (valve) insufficiency
CPT/HCPCS: 93306

== ENCOUNTER 2024-07-24 07:49 | Outpatient (CLI) | payer MEDICARE, BC, SELFPAY ==
--- NOTE | 2024-07-24 07:45 | RT.EKG_ITS ---
APPROVED REPORT Exam: Resting ECG Reason for Exam: hx of afib Patient Location: O HR:74 bpm ECG Measurements Heart Rate 74 AXIS NV 64 P 71 QRSd 98 QRS 46 QT 401 T 7 QTc 445 Conclusion Sinus rhythm...normal P axis, V-rate 50- 99 Normal Electrocardiogram
== END 2024-07-24 07:50 | disposition home or self-care (01) ==
LOC: DI.CARD 07:50
PROVIDERS: PCP Physician Assistant Medical; Visit Provider Internal Medicine Cardiovascular Disease
DX: Z98.890 Other specified postprocedural states (principal); Z95.2 Presence of prosthetic heart valve
CPT/HCPCS: 93010

== ENCOUNTER → 2024-07-24 11:05 | Outpatient (BNVA) | payer MEDICARE, BC, SELFPAY | PROVIDERS: PCP Physician Assistant Medical; Visit Provider Internal Medicine Cardiovascular Disease | DX: Z95.2 Presence of prosthetic heart valve (principal) | CPT/HCPCS: 93005; 99214 ==

== ENCOUNTER → 2024-07-26 08:49 | Outpatient (BNVA) | payer MEDICARE, BC, SELFPAY | PROVIDERS: PCP Physician Assistant Medical; Referring Provider Physician Assistant Medical; Visit Provider Student in an Organized Health Care Education/Training Program | DX: M17.11 Unilateral primary osteoarthritis, right knee (principal); M17.12 Unilateral primary osteoarthritis, left knee | CPT/HCPCS: 20610; J7318 ==

== ENCOUNTER → 2024-11-08 11:14 | Outpatient (BNVA) | payer MEDICARE, BC, SELFPAY | PROVIDERS: PCP Physician Assistant Medical; Referring Provider Physician Assistant Medical; Visit Provider Physician Assistant | DX: M17.0 Bilateral primary osteoarthritis of knee (principal) | CPT/HCPCS: 20610; J1010 ==

== ENCOUNTER → 2024-11-29 14:13 | Outpatient (BNVA) | payer MEDICARE, BC, SELFPAY | PROVIDERS: PCP Physician Assistant Medical; Referring Provider Physician Assistant Medical; Visit Provider Physician Assistant Surgical | DX: J44.9 Chronic obstructive pulmonary disease, unspecified (principal); Z87.891 Personal history of nicotine dependence | CPT/HCPCS: 99214 ==

== ENCOUNTER → 2025-03-21 10:09 | Outpatient (BNVA) | payer MEDICARE, BC, SELFPAY | PROVIDERS: PCP Physician Assistant Medical; Referring Provider Physician Assistant Medical; Visit Provider Physician Assistant | DX: M17.0 Bilateral primary osteoarthritis of knee (principal) | CPT/HCPCS: 20610; J7318 ==